=== PATIENT | female | born 1955 | race Caucasian/White ===

== ENCOUNTER → 2018-03-06 00:21 | Outpatient (CLI) | payer BC, SELFPAY ==
--- NOTE | 2018-03-06 08:46 | DI.REPORT_ITS ---
SYMPTOM/DIAGNOSIS: SCREENING, Z12.31 BILATERAL SCREENING MAMMOGRAMS: Mammograms were interpreted according to the usual protocol including computer analysis with CAD system, tomosynthesis and C view imaging. Comparison is made with exams from 2014 through 2017. The breasts are composed of scattered fibroglandular densities, breast density Category B. No suspicious masses or suspicious microcalcifications are seen. There has been no significant change. IMPRESSION: Category 1-B. Negative mammogram. Routine screening is recommended. [facility] ASSESSMENT OF FINDINGS: Negative. Category 1. Patient will receive a letter notifying them of these results. BI-RADS category B. There are scattered areas of fibroglandular density.
== END ==
PROVIDERS: PCP Nurse Practitioner Family; Visit Provider Nurse Practitioner Family
DX: Z12.31 Encounter for screening mammogram for malignant neoplasm of breast (principal)
CPT/HCPCS: 77063; 77067

== ENCOUNTER 2018-06-23 06:10 | Day surgery (SDC) | payer BC, SELFPAY ==
[2018-06-23] MEDS: Lactated Ringers 1,000 ML 30 ML IV ×2 (06:42→07:43)
[2018-06-23 06:56] VITALS: BP 131/66; PULSE 64; RESP 20; TEMP 36.7; O2SAT 98
[2018-06-23] MEDS: Ondansetron 4 MG/2 ML VIAL IVP (08:27)
[2018-06-23 08:37] VITALS: BP 143/86; PULSE 68; RESP 20; TEMP 36.7; O2SAT 98
--- NOTE | 2018-06-23 09:10 | W.COLOREPORT ---
Date of service: 06/23/18 Time of Service: 08:00 Colonoscopy Report Date of procedure: 06/23/18 Post-op diagnosis procedure note: other (1. Mild sigmoid diverticulosis 2. Grade 2 hemorrhoids) Procedure: Colonoscopy to the cecum Surgeon: Winston Hanks Anesthesia proc note operative: MAC (Matthew Chen CRNA; ASA 2 Mallampati Class II) Estimated blood loss (mL): 0 Pathology: none sent Complications: None Disposition: same day Indications: 62-year-old woman presenting for colorectal cancer screening by colonoscopy. She is been asymptomatic since her last colonoscopy which was unremarkable. She has no family history colorectal cancer. The procedure has been reviewed with her risks have been discussed. All her questions been answered to her satisfaction. Consents been obtained to proceed with colonoscopy. Prep: Miralax/Dulcolax (Prep quality excellent) Procedure Start Time: 07:56 Procedure End Time: 08:15 Retraction Time: 9 Findings: Examining the colon from cecum to anus, the patient was noted to have some mild sigmoid diverticulosis, and grade 2 hemorrhoids. No other abnormalities are noted Procedure Description: The patient was seen in the day surgery waiting area. Her identification was confirmed, and procedure checked. She was then brought to the procedure room. Monitoring for telemetry, blood pressure, oxygen saturation, and end tidal CO2 monitoring were applied. An appropriate time out was performed to confirm, identification, allergies, medication, procedure, was performed. Sedation was titrated for affect by the ALDEN; Once adequate sedation was achieved, I performed a inspection of the external perineum, and a digitial rectal examination. No significant external abnormalities were noted. On digital rectal examination, there was no blood, no masses, good rectal tone. I advanced the colonoscope from the anus to the cecum under direct visualization. The cecum was identified by the ileal-cecal valve, and the appendiceal orifice. The scope was then withdrawn in circumferential manner from the cecum to the rectum. Mild sigmoid diverticulosis was noted in the colon, but no other abnormalities were seen of the colon. The scope was then withdrawn into the rectum, and retroflexed. No further abnormalities of the rectum were noted but the anorectal junction the patient was noted to have grade 2 hemorrhoids The scope was then withdrawn, terminating the procedure. There were no complications during the procedure, and the patient tolerated the procedure well. She was returned to the day surgery recovery area in good condition. Plan: Will continue with routine screening for colorectal cancer according to current consensus guidelines, which is currently 10 years. Hemorrhoids should be amendable to topical therapy.
--- NOTE | 2018-06-23 09:17 | W.PM.DSUDISC ---
Discharge Plan Disposition Patient Disposition: HOME Condition: Good Discharge Details Reason For Visit: SCREENING Attending Provider: Winston Hanks Primary Care Provider: Tracie Murray Home Meds and New Rx's Prescriptions: Continue fluoxetine 10 mg capsule 10 mg PO DAILY RF: 0 trazodone 50 MG tablet 100 mg PO PRN PRNRF: 0 simvastatin 10 MG tablet 40 mg PO HS RF: 0 aspirin [Aspir-81] 81 MG tablet,delayed release (DR/EC) 81 mg PO DAILY RF: 0 omeprazole 10 MG capsule,delayed release(DR/EC) 20 mg PO HS RF: 0 multivitamin 1 EACH capsule 1 ea PO DAILY RF: 0 cholecalciferol (vit D3)(bulk) 1,000 GM liquid 100 gm Miscellaneous DAILY RF: 0 L.acidoph, paracasei,B. lactis 1 EACH capsule 1 ea PO DAILY RF: 0 docusate sodium [Colace] 100 MG capsule 100 mg PO DAILY PRNRF: 0 buspirone 5 MG tablet 15 mg PO BID RF: 0 venlafaxine [Effexor XR] 37.5 MG capsule,extended release 24hr 37.5 mg PO DAILY RF: 0 Psyllium [Metamucil] 1 EACH Pkt 1 ea PO DAILY PRNRF: 0 Discharge Instructions Instructions: Colonoscopy (DC) Activity:: Activity as Tolerated Diet:: As Tolerated Discharge Orders Discharge Orders: Discharge Order (Routine); Ordered 06/23/18 Ordered By: Winston Hanks DS: Diagnosis Discharge Diagnosis (1) Encounter for colorectal cancer screening: Start date: 06/23/18 Start time: 09:17 Status: Acute Asessment and Plan: Colonoscopy performed Colonoscopy Report Date of procedure: 06/23/18 Post-op diagnosis procedure note: other (1. Mild sigmoid diverticulosis 2. Grade 2 hemorrhoids) Procedure: Colonoscopy to the cecum Surgeon: Winston Hanks Anesthesia proc note operative: MAC (Matthew Chen CRNA; ASA 2 Mallampati Class II) Estimated blood loss (mL): 0 Pathology: none sent Complications: None Disposition: same day Indications: 62-year-old woman presenting for colorectal cancer screening by colonoscopy. She is been asymptomatic since her last colonoscopy which was unremarkable. She has no family history colorectal cancer. The procedure has been reviewed with her risks have been discussed. All her questions been answered to her satisfaction. Consents been obtained to proceed with colonoscopy. Prep: Miralax/Dulcolax (Prep quality excellent) Procedure Start Time: 07:56 Procedure End Time: 08:15 Retraction Time: 9 Findings: Examining the colon from cecum to anus, the patient was noted to have some mild sigmoid diverticulosis, and grade 2 hemorrhoids. No other abnormalities are noted Procedure Description: The patient was seen in the day surgery waiting area. Her identification was confirmed, and procedure checked. She was then brought to the procedure room. Monitoring for telemetry, blood pressure, oxygen saturation, and end tidal CO2 monitoring were applied. An appropriate time out was performed to confirm, identification, allergies, medication, procedure, was performed. Sedation was titrated for affect by the [employer]ENT[employer] SALES REPRESENTATIVE; Once adequate sedation was achieved, I performed a inspection of the external perineum, and a digitial rectal examination. No significant external abnormalities were noted. On digital rectal examination, there was no blood, no masses, good rectal tone. I advanced the colonoscope from the anus to the cecum under direct visualization. The cecum was identified by the ileal-cecal valve, and the appendiceal orifice. The scope was then withdrawn in circumferential manner from the cecum to the rectum. Mild sigmoid diverticulosis was noted in the colon, but no other abnormalities were seen of the colon. The scope was then withdrawn into the rectum, and retroflexed. No further abnormalities of the rectum were noted but the anorectal junction the patient was noted to have grade 2 hemorrhoids The scope was then withdrawn, terminating the procedure. There were no complications during the procedure, and the patient tolerated the procedure well. She was returned to the day surgery recovery area in good condition. Plan: Will continue with routine screening for colorectal cancer according to current consensus guidelines, which is currently 10 years. Hemorrhoids should be amendable to topical therapy.
[2018-06-23] MEDS: FAMOTIDINE 20 MG/50 ML BAG 200 MG IVPB (10:26)
[2018-06-23 10:28] VITALS: BP 139/84; PULSE 76; RESP 20; TEMP 36.7; O2SAT 100
[2018-06-23] MEDS: Haloperidol 5 MG/ML VIAL 1 MG IV (11:13)
[2018-06-23 11:22] VITALS: PULSE 64; O2SAT 100
--- NOTE | 2018-06-23 12:31 | NUR.NOTE ---
Nursing Note: EDUCATION PERTAINING TO REMOVAL OF SCOPALAMINE PATCH GIVEN TO PT PRIOR TO DISCHARGE.
== END 2018-06-23 12:22 | disposition home or self-care (01) ==
PROVIDERS: PCP Nurse Practitioner Family; Visit Provider Surgery
PROC: 0DJD8ZZ Inspection of Lower Intestinal Tract, Via Natural or Artificial Opening Endoscopic (ICD-10-PCS; CPT 45378; principal; 2018-06-23 07:30)
DX: Z12.11 Encounter for screening for malignant neoplasm of colon (principal); K57.30 Diverticulosis of large intestine without perforation or abscess without bleeding; K64.1 Second degree hemorrhoids
CPT/HCPCS: 45378; J1630; J2060; J2405

== ENCOUNTER 2018-07-10 13:26 | Outpatient (REF) | payer BC, SELFPAY ==
[2018-07-10 23:05] LABS: ALT 23 U/L (12-78); AST 18 U/L (15-37); Albumin 3.7 g/dL (3.4-5.0); Alkaline Phosphatase 95 U/L (46-116); Anion Gap 8.2 mmol/L (3-11); BUN 16 mg/dL (7-18); Bilirubin, Total 0.2 mg/dL (0.2-1.0); CO2 29.8 mmol/L (21.0-32.0); CREATININE 1.05 mg/dL (0.55-1.02); Calcium 9.3 mg/dL (8.5-10.1); Chloride 103 mmol/L (98-107); Glucose 90 mg/dL (70-100); Magnesium 1.7 mg/dL (1.8-2.4); Potassium 4.7 mmol/L (3.5-5.1); Sodium 141 mmol/L (136-145); Total Protein 7.1 g/dL (6.4-8.2); Vitamin B12 778 pg/mL (193-986)
== END 2018-07-10 13:46 ==
LOC: NCHCN 13:26
PROVIDERS: PCP Nurse Practitioner Family; Visit Provider Nurse Practitioner Family
DX: F41.8 Other specified anxiety disorders (principal); R25.1 Tremor, unspecified; M25.531 Pain in right wrist; M54.6 Pain in thoracic spine; K21.9 Gastro-esophageal reflux disease without esophagitis; R05 Cough; J30.9 Allergic rhinitis, unspecified
CPT/HCPCS: 80053; 82607; 83735

== ENCOUNTER 2018-10-09 07:52 | Emergency (ER) | payer BC, SELFPAY ==
[2018-10-09] VITALS (31 sets, daily range): BP systolic 119–162; BP diastolic 58–97; PULSE 71–96; RESP 11–26; TEMP 36.5–36.7; O2SAT 94–100
--- NOTE | 2018-10-09 07:57 | ED.GENADUL_ITS ---
Discharge Plan Disposition Patient Disposition: HOME Condition: Stable Discharge Details Chief Complaint: Nausea/Vomit/Diar Clinical Impression: Nausea vomiting and diarrhea, Hypokalemia Primary Care Provider: Tracie Murray ED Provider: Antionette Claudio Home Meds and New Rx's Prescriptions: New ondansetron 4 mg tablet,disintegrating 4 mg PO Q8H PRN (Reason: nausea and vomiting) Qty: 9 RF: 0 Continued fluoxetine 10 mg capsule 10 mg PO HS RF: 0 aspirin [Aspir-81] 81 MG tablet,delayed release (DR/EC) 81 mg PO DAILY RF: 0 multivitamin 1 EACH capsule 1 ea PO DAILY RF: 0 cholecalciferol (vit D3)(bulk) 1,000 GM liquid 100 gm Miscellaneous DAILY RF: 0 docusate sodium [Colace] 100 MG capsule 100 mg PO DAILY PRNRF: 0 No Action simvastatin 40 mg Tablet 40 mg PO HS RF: 0 omeprazole 20 mg Capsule,Delayed Release(Dr/Ec) 20 mg PO HS RF: 0 buspirone 15 mg Tablet 15 mg PO BID RF: 0 Discharge Instructions Instructions: Hypokalemia (ED), Acute Nausea and Vomiting (ED) Additional Instructions: Please return immediately to the emergency department if you develop any new or worsening symptoms or if you become otherwise concerned. It is extremely important that you make an appointment to be seen as soon as possible by your primary care doctor in follow-up this visit. Referrals: Tracie Murray [Primary Care Provider] - Discharge Data Discharge Date/Time-TO BE ENTERED AT DEPARTURE: 10/09/18 12:51 Medical Decision Making Leona James is a 63 y/o woman with h/o hiatal hernia and GERD presenting to the emergency department with nausea and vomiting since yesterday, also with mild diarrhea. On exam Pt is non-toxic appearing. Abd exam benign. Concern for gastroenteritis, gastritis, dehydration, metabolic derangement. Possible atypi jordon flu given close contacts with similar symptoms. Pt also reporting anxiety 2/2 persistent nausea. Exam/hx not c/w sepsis, acute intracranial process, ACS, appendicitis, surgical intra-abdominal process, other acute emergent life threatening process. Plan for screening labs, IVF hydration, IV zofran, ativan. Will monitor and reassess. Pt reports mild improvement in nausea with zofran, would like more anti-nausea medication. Will given reglan, continue IVF. Pt reporting symptoms much improved. Labs show hypokalemia. Pt tolerating PO including potassium without issue. Plan for rx zofran. I had a lengthy discussion with the Pt re: RTED precautions, home care, importance of outpt f/u. Pt verbalizes understanding of the plan and is amenable. All questions answered. Medical Records Medical records reviewed: Yes I reviewed the patient's medical records. HPI General Mode of arrival: ambulatory . Date/Time Provider Initiated Documentation: 10/09/18 07:56 . Limitations to Documentation: no limitations . Information obtained by: patient, family and RN notes reviewed . HPI Narrative: Leona James is a 63 y/o woman with h/o hiatal hernia and GERD presenting to the emergency department with nausea and vomiting. Pt reports that symptoms began last night. Has not been able to hold down food or fluids since yesterday. Has not had similar symptoms in the past. Pt reports some loose stools as well. Reports that her and daughter had similar symptoms over the past week, both of their symptoms now resolved. Pt denies pain, fever, SOB, cough, rash, focal weakness. Previously in her usual state of health. No recent travel. No unusual foods. Related Data Home Medications Medication Instructions Recorded Confirmed aspirin [Aspir-81] 81 mg PO DAILY tab-cap 06/05/13 10/15/18 cholecalciferol (vit D3)(bulk) 100 gm MISCELLANEOUS DAILY 02/23/16 10/15/18 multivitamin 1 ea PO DAILY 02/23/16 10/15/18 docusate sodium [Colace] 100 mg PO DAILY PRN 11/24/16 10/15/18 fluoxetine 10 mg capsule 10 mg PO HS 05/29/18 10/15/18 ondansetron 4 mg PO Q8H PRN #9 tab 10/09/18 10/15/18 buspirone 15 mg PO BID 10/15/18 10/15/18 omeprazole 20 mg PO HS 10/15/18 10/15/18 simvastatin 40 mg PO HS 10/15/18 10/15/18 Previous Rx's Medication Instructions Recorded ondansetron 4 mg PO Q8H PRN #9 tab 10/09/18 Allergies Allergy/AdvReac Type Severity Reaction Status Date / Time sertraline [From Zoloft] Allergy Intermediate shakes Verified 10/15/18 09:20 clonazepam AdvReac Intermediate Nausea Unverified 10/15/18 09:20 Review of Systems Review of Systems Constitutional: denies fevers Eyes: denies eye pain ENT: denies facial pain, dental pain, sore throat Cardiovascular: denies chest pain, edema Respiratory: denies SOB, cough GI: denies abdominal pain, constipation, reports vomiting, diarrhea : denies flank pain MSK: denies back pain, neck pain, arthralgias, myalgias Skin: denies rash Neuro: denies headaches, numbness, weakness PFSH Medical History H. pylori infection (Resolved) Abdominal pain Anxiety Arthralgia Chest heaviness Constipation Cough Depression Dyspnea GERD (gastroesophageal reflux disease) Hypercholesteremia Insomnia Menopause Overweight Thoracic spine pain Surgical History H/O colonoscopy (Resolved 06/23/18) Appendectomy (11/25/16) EGD - IV Sedation (02/23/16) Social History Smoking/Tobacco Use Status: Never Alcohol Intake: never Drug use: Daily Substance use type: marijuana Details: usually smokes marijuana every day, but hasn't been due to illness. although, she did try it to see if it would help with the nausea. Do you feel safe at home: Yes Do you feel safe in your relationship?: Yes History History Para 2 Hx # Term Pregnancies Multiple births Hx # Pregnancies Ectopic pregnancies AB induced Hx Number of Living Children AB spontaneous Exam Narrative Exam Narrative: Constitutional: nauseated but [id number], conversing normally HENT: head atraumatic/normocephalic/normal inspection, mucous membranes moist Eyes: conjunctiva normal, sclera normal, pupils 3mm b/l Neck: no stridor, normal ROM, trachea midline Chest: normal inspection Resp: normal work of breathing, LCTAB Cardio: normal rate, normal rhythm, no murmur appreciated GI: abdomen soft, non-tender, non-distended Back: normal inspection, no rash Skin: warm, dry, normal color, no rash Neuro: alert, not altered, grossly non-focal, normal tone Ext: no edema Psych: normal mood, normal affect, normal behavior
[2018-10-09] MEDS: Lactated Ringers 1,000 ML 1000 ML IV ×2 (08:25→09:04)
[2018-10-09] MEDS: Ondansetron 4 MG/2 ML VIAL IVP (08:28)
[2018-10-09 08:36] LABS: Abs Immature Grans 0.03 k/cumm (0.0-0.09); Absolute Basophil Count 0.01 k/cumm (0.0-0.2); Absolute Lymphocyte Count 0.35 k/cumm (1.2-3.4); Absolute Monocyte Count 0.61 k/cumm (0.11-0.7); Basophils % 0.1; HCT 40.1 % (36.0-46.0); HGB 14.3 g/dL (12.0-15.5); Immature Grans % 0.3; Lymphocytes % 2.9; Mean Corp. HGB Concentration 35.7 g/dL (32.0-36.0); Mean Corpuscular Hemoglobin 30.5 pg (27.0-33.0); Mean Corpuscular Volume 85.5 fL (80-95); Monocytes % 5.1; Neutrophils % 91.6; Platelet Count 211 x1000/uL (130-400); RBC 4.69 m/cumm (4.00-5.20); RBC Distribution Width 13.1 % (11.7-14.6)
[2018-10-09] MEDS: LORazepam 2 MG/ML VIAL 0.5 MG IVP (08:36)
[2018-10-09 08:39] LABS: Absolute Neutrophil Count 10.99 k/cumm (1.2-6.7)
[2018-10-09 08:50] LABS: ALT 23 U/L (12-78); AST 19 U/L (15-37); Albumin 3.9 g/dL (3.4-5.0); Alkaline Phosphatase 88 U/L (46-116); Anion Gap 14.6 mmol/L (3-11); BUN 23 mg/dL (7-18); Bilirubin, Total 0.5 mg/dL (0.2-1.0); CO2 21.4 mmol/L (21.0-32.0); CREATININE 1.11 mg/dL (0.55-1.02); Calcium 9.4 mg/dL (8.5-10.1); Chloride 99 mmol/L (98-107); Estimated GFR 49.64 (mL/min/1.73m2); Glucose 179 mg/dL (70-100); Lipase 101 U/L (73-393); Potassium 3.1 mmol/L (3.5-5.1); Sodium 135 mmol/L (136-145); Total Protein 7.7 g/dL (6.4-8.2)
[2018-10-09] MEDS: Metoclopramide 10 MG/2 ML VIAL IVP (10:15)
[2018-10-09] MEDS: Normal Saline Flush 10 ML SYR IVP (10:20)
[2018-10-09 11:24] LABS: Bilirubin Negative (Negative); Blood Negative (Negative); Clarity Clear; Glucose 100 mg/dL (Negative); Ketones 15 mg/dL (Negative); Leukocyte Esterase Negative (Negative); Nitrite Negative (Negative); Urobilinogen 0.2 EU/dL (Up TO 0.2); pH 7.5 (5-8)
[2018-10-09] MEDS: Potassium Chloride 20 MEQ TABCR 40 MEQ PO (12:07)
== END 2018-10-09 12:51 | disposition home or self-care (01) ==
PROVIDERS: Emergency Provider Student in an Organized Health Care Education/Training Program; PCP Nurse Practitioner Family
DX: R11.2 Nausea with vomiting, unspecified (principal); R19.7 Diarrhea, unspecified; E87.6 Hypokalemia
CPT/HCPCS: 36415; 80053; 83690; 87449; 96360; 96361; 96374; 96375; 99284; 81003; 85025; 99283; J2060; J2405; J2765

== ENCOUNTER 2018-10-11 10:29 | Emergency (ER) | payer BC, SELFPAY ==
[2018-10-11 10:34] VITALS: BP 179/66; PULSE 65; RESP 20; TEMP 36.7
[2018-10-11] MEDS: Ondansetron 4 MG/2 ML VIAL IVP (10:51)
[2018-10-11] MEDS: Normal Saline 1,000 ML 1000 ML IV ×3 (10:52→12:36)
[2018-10-11] MEDS: LORazepam 2 MG/ML VIAL 0.5 MG IVP (10:52)
[2018-10-11 11:02] LABS: Abs Immature Grans 0.03 k/cumm (0.0-0.09); Absolute Basophil Count 0.01 k/cumm (0.0-0.2); Absolute Eosinophil Count 0.02 k/cumm (0.0-0.7); Absolute Lymphocyte Count 1.12 k/cumm (1.2-3.4); Absolute Monocyte Count 0.77 k/cumm (0.11-0.7); Absolute Neutrophil Count 6.54 k/cumm (1.2-6.7); Basophils % 0.1; Eosinophils % 0.2; HCT 38.8 % (36.0-46.0); HGB 13.4 g/dL (12.0-15.5); Immature Grans % 0.4; Lymphocytes % 13.2; Mean Corp. HGB Concentration 34.5 g/dL (32.0-36.0); Mean Corpuscular Hemoglobin 30.1 pg (27.0-33.0); Mean Corpuscular Volume 87.2 fL (80-95); Monocytes % 9.1; Platelet Count 187 x1000/uL (130-400); RBC 4.45 m/cumm (4.00-5.20); RBC Distribution Width 13.2 % (11.7-14.6); White Blood Cell Count 8.49 k/cumm (4.4-10.8)
--- NOTE | 2018-10-11 11:02 | ED.GENADUL_ITS ---
Discharge Plan Disposition Patient Disposition: HOME Condition: Good Discharge Details Chief Complaint: Nausea/Vomit/Diar Clinical Impression: Moderate nausea and vomiting Primary Care Provider: Tracie Murray ED Provider: Harris Morales Home Meds and New Rx's Prescriptions: No Action fluoxetine 10 mg capsule 10 mg PO DAILY RF: 0 trazodone 50 MG tablet 100 mg PO PRN PRNRF: 0 simvastatin 10 MG tablet 40 mg PO HS RF: 0 aspirin [Aspir-81] 81 MG tablet,delayed release (DR/EC) 81 mg PO DAILY RF: 0 omeprazole 10 MG capsule,delayed release(DR/EC) 20 mg PO HS RF: 0 cetirizine [Zyrtec] 10 mg tablet 10 mg PO DAILY RF: 0 multivitamin 1 EACH capsule 1 ea PO DAILY RF: 0 cholecalciferol (vit D3)(bulk) 1,000 GM liquid 100 gm Miscellaneous DAILY RF: 0 L.acidoph, paracasei,B. lactis 1 EACH capsule 1 ea PO DAILY RF: 0 ondansetron 4 mg tablet,disintegrating 4 mg PO Q8H PRN (Reason: nausea and vomiting) Qty: 9 RF: 0 docusate sodium [Colace] 100 MG capsule 100 mg PO DAILY PRNRF: 0 buspirone 5 MG tablet 15 mg PO BID RF: 0 Psyllium [Metamucil] 1 EACH Pkt 1 ea PO DAILY PRNRF: 0 Discharge Instructions Instructions: Acute Nausea and Vomiting (ED) Additional Instructions: Please take the Reglan only as needed for nausea or vomiting. Please continue to drink small amounts of water as often as possible at home. As we discussed, if you have return of your symptoms, if you are unable to eat or drink anything without vomiting, or if you develop any type of abdominal pain please return immediately for reassessment. If you notice any worsening of your symptoms, or any new symptoms such as vomiting, diarrhea, fever, chills, shortness of breath, chest pain, numbness, weakness, or fainting , please return immediately to the emergency department for reevaluation. Please follow up with your primary care provider as soon as possible for reassessment and reevaluation. As always, it was a pleasure participating in your medical care today. Referrals: Tracie Murray [Primary Care Provider] - Medical Decision Making This is a 63-year-old female who presents today for nausea and vomiting for the last 3 days, she was seen and assessed here 3 days ago, had a benign laboratory workup at that time, which discharged home after she is feeling better. She does smoke marijuana of note, and her symptoms are improved with hot showers. Patient states that she was feeling slightly better yesterday, notably after the hot shower, however her nausea and vomiting have continued today. She denies any abdominal pain whatsoever, and there is no signs of guarding or rebound on exam. No signs of an acute abdomen. Bowel sounds are present she is having bowel movements and so I feel that notable obstruction is unlikely. We will rehydrate, give her GI cocktail she has not been on any of her reflux medications for the last 3 days because of the vomiting, treat with topical Spacing for potential cyclic vomiting syndrome, perform a plain film x-ray as I do not think a CT scan is indicated at this time clinically there is no signs of acute abdominal pain. Differential is highest for cyclic vomiting syndrome, however also includes less likely obstruction versus viral enteritis. 2:19 PM Patient's laboratory workup has returned, no significant electrolyte abnormalities, ALT AST and lipase are normal. Patient was given 2 L of normal saline initially and was feeling much better, she was eventually given 3 L total. Initial x-ray did show an atypical component on the left side of the abdomen which was felt to be otherwise unremarkable, no signs of obstruction. Because of the patient's persistent symptoms CT scan was ordered, which shows no evidence of acute process per radiology and Dr. Roberts. The patient was eventually given a dose of Reglan in addition to the Zofran, she had notable improvement of her nausea with this, as well as the topical capscacin over her abdomen. Patient has been able to tolerate p.o. well here, she has been able to drink the GI cocktail, as well as 2 cups of water. Had a long discussion with her regarding potential admission versus discharge, and she has been able to tolerate p.o., she has benign CT scan laboratory workup, and no other significant abnormalities, with no pain whatsoever on abdominal exam, no reproducible abdominal tenderness. At this time the patient would like to go home, I discussed the importance of prompt return if she has worsening or return of her symptoms, including inability to tolerate p.o. and the patient understands this. Of note the patient is now brought up that her has had similar symptoms, and recently had resolution of the symptoms yesterday. Feel that her symptoms are most likely secondary to viral gastroenteritis versus cyclic vomiting syndrome, and is currently clinically inconsistent with an acute abdominal surgical pathology. Her symptoms are inconsistent with ACS, patient will be discharged home. She will be given 3 Reglan to go home with. I have extensively reviewed the treatment plan and discharge instructions with the patient. I have addressed all patient concerns at this time. The patient was made aware of what symptoms to monitor for that would warrant a return to the emergency department. Discussed the plan with the patient, they demonstrate verbal understanding and agreement with our assessment and plan at this time. HPI General Date/Time Provider Initiated Documentation: 10/11/18 10:36 . HPI Narrative: This is a 63-year-old female with a past medical history of depression, anxiety, high cholesterol, GERD, past surgical history of appendectomy, who presents today for evaluation nausea and vomiting in the absence of any abdominal pain. The patient was seen and assessed here 3 days ago for similar symptoms. At that time laboratory workup was benign, she had no abdominal pain whatsoever. Laboratory workup was relatively benign, potassium was slightly low and she was replenished for this, she was given a small dose of Ativan and antiemetics, and she had near complete resolution of her symptoms and was discharged home. Patient states that since then she has not had resolution of her symptoms, she has had continued nausea and vomiting. She states that she has had no food to eat today, however she states that she vomits roughly 5 minutes every time after she tries to eat or drink anything. She has not been able to keep anything down because of this. She denies any diarrhea, but does admit to to firm stools today. The patient denies any hematemesis, hematochezia, melena, acholic stool, or other symptomatology. She denies any abdominal pain whatsoever at this time. She denies any dysuria or hematuria. She denies any chest pain or shortness of breath. She denies any previous cardiac history. She does admit to regular marijuana use, but states that she has not had symptoms like this before with her marijuana use. Patient also states that she has notable improvement of her symptoms when she did take a hot shower yesterday. She has no other complaints or modifying factors at this time. Related Data Home Medications Medication Instructions Recorded Confirmed aspirin [Aspir-81] 81 mg PO DAILY tab-cap 06/05/13 10/11/18 omeprazole 20 mg PO HS tab-cap 06/05/13 10/11/18 simvastatin 40 mg PO HS tab-cap 06/05/13 10/11/18 trazodone 100 mg PO PRN PRN tab-cap 06/05/13 10/11/18 L.acidoph, paracasei,B. lactis 1 ea PO DAILY 02/23/16 10/11/18 cholecalciferol (vit D3)(bulk) 100 gm MISCELLANEOUS DAILY 02/23/16 10/11/18 multivitamin 1 ea PO DAILY 02/23/16 10/11/18 docusate sodium [Colace] 100 mg PO DAILY PRN 11/24/16 10/11/18 Psyllium [Metamucil] 1 ea PO DAILY PRN 08/01/17 10/11/18 buspirone 15 mg PO BID 08/01/17 10/11/18 fluoxetine 10 mg capsule 10 mg PO DAILY 05/29/18 10/11/18 cetirizine 10 mg tablet 10 mg PO DAILY 07/13/18 10/11/18 ondansetron 4 mg PO Q8H PRN #9 tab 10/09/18 10/11/18 Previous Rx's Medication Instructions Recorded ondansetron 4 mg PO Q8H PRN #9 tab 10/09/18 Allergies Allergy/AdvReac Type Severity Reaction Status Date / Time sertraline [From Zoloft] Allergy Intermediate shakes Verified 10/09/18 08:00 clonazepam AdvReac Intermediate Nausea Unverified 10/09/18 08:00 General Stated Complaint: Nausea/Vomit/Diar ANNE MARIE: 3 Review of Systems Review of Systems All systems reviewed & are unremarkable except as noted in HPI and below PFSH Surgical History H/O colonoscopy (Resolved 06/23/18) Appendectomy (11/25/16) EGD - IV Sedation (02/23/16) Family History Brother No problems noted. Other Esophageal cancer Social History Smoking/Tobacco Use Status: Never Alcohol Intake: never Drug use: Daily Substance use type: marijuana Do you feel safe at home: Yes Do you feel safe in your relationship?: Yes History History Para 2 Hx # Term Pregnancies Multiple births Hx # Pregnancies Ectopic pregnancies AB induced Hx Number of Living Children AB spontaneous Exam Narrative Exam Narrative: 1.Const: Well-nourished, Well-developed, appearing stated age 2.Eyes: PERRL, no conjunctival injection, and symmetrical lids. 3.ENT: Atraumatic external nose and ears. Notably dry MM. Neck: Symmetric, trachea midline, No thyromegaly. 4.CVS: +S1/S2, No murmurs or gallops. Peripheral pulses 2+ and equal in all extremities. Brisk capillary refill in all extremities. 5.RESP: Unlabored respiratory effort. Clear to auscultation bilaterally. No wheezes rales or rhonchi 6.GI: Soft, Nontender/Nondistended, No hepatosplenomegaly. No guarding or rebound. Bowel sounds are present 7.MSK: Normocephalic/Atraumatic, Extremities w/o deformity or ttp No cyanosis or clubbing, Normal movement of all extremities 8.Skin: Warm, Dry. No rashes or lesions. 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 Sensation grossly intact, no focal neurologic deficits. 10.Psych: (AAO) x3. Appropriate mood and affect Course Vital Signs Temperature 36.7 C 10/11/18 10:34 Pulse 65 10/11/18 10:34 Respiratory Rate 20 10/11/18 10:34 Blood Pressure 179/66 H 10/11/18 10:34 Temperature 36.7 C 10/11/18 10:34 Temperature Source Temporal Artery Scan 10/11/18 10:34 Pulse 65 10/11/18 10:34 Respiratory Rate 20 10/11/18 10:34 Blood Pressure 179/66 H 10/11/18 10:34 Blood Pressure Position Sitting 10/11/18 10:34 Oxygen Delivery Method Room Air 10/11/18 10:34 Oxygen Flow Rate 0 10/11/18 10:34 Pain Level 0 10/11/18 10:34
[2018-10-11] MEDS: Pantoprazole 40 MG VIAL IVP (11:17)
[2018-10-11 11:25] LABS: ALT 28 U/L (12-78); AST 23 U/L (15-37); Albumin 3.6 g/dL (3.4-5.0); Alkaline Phosphatase 77 U/L (46-116); Anion Gap 9.7 mmol/L (3-11); BUN 19 mg/dL (7-18); Bilirubin, Total 0.3 mg/dL (0.2-1.0); CO2 27.3 mmol/L (21.0-32.0); CREATININE 1.02 mg/dL (0.55-1.02); Calcium 9.1 mg/dL (8.5-10.1); Chloride 104 mmol/L (98-107); Estimated GFR 54.73 (mL/min/1.73m2); Glucose 170 mg/dL (70-100); Lipase 198 U/L (73-393); Potassium 3.4 mmol/L (3.5-5.1); Sodium 141 mmol/L (136-145); Total Protein 7.1 g/dL (6.4-8.2)
--- NOTE | 2018-10-11 11:38 | DI.RAD_ITS ---
SYMPTOMS/DIAGNOSIS: NAUSEA, VOMITING, EVAL AIR FLUID LEVELS FLAT AND UPRIGHT ABDOMEN: The visualized lung bases are clear. The bowel gas pattern shows no evidence of obstruction. There is a linear tubular structure of air in the left abdomen likely reflecting the descending colon. No organomegaly or pneumoperitoneum is appreciated. Degenerative changes are seen in the spine and hips bilaterally. IMPRESSION: No definite evidence of an acute abdomen. The findings were discussed with Dr Morales of the emergency department on the date of the examination.
--- NOTE | 2018-10-11 12:30 | DI.CT_ITS ---
SYMPTOMS/DIAGNOSIS: VOMITING, UNABLE TO TOLERATE PO CT SCAN OF THE ABDOMEN AND PELVIS: CT scan of the abdomen and pelvis was performed following the uneventful administration of intravenous contrast material. Comparisons are 11/29/16 and 11/24/16. No acute findings are seen in the lung bases. The liver is normal in size. 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 It is unchanged compared to the prior examination. No suspicious hepatic masses are seen. The portal, superior mesenteric and splenic veins are patent. The gallbladder is negative. No biliary ductal dilatation is seen. The pancreas, spleen and adrenal glands are grossly unremarkable. The kidneys show no evidence of obstruction or solid renal mass. The urinary bladder is intact. The reproductive organs are unremarkable. There is atherosclerosis of the abdominal aorta but no aneurysmal dilatation is present. No significant abdominal or pelvic adenopathy, ascites or pneumoperitoneum is present. The bowel shows no evidence of obstruction. No acute inflammatory or infectious process is appreciated at this time. No pericolonic inflammatory changes are appreciated. Degenerative changes are seen in the spine. IMPRESSION: No evidence of an acute abdomen. The findings were discussed with the Emergency Department on the date of the examination.
[2018-10-11] MEDS: Omnipaque 350 MG/ML 100 ML BTL IJ (13:02)
[2018-10-11] MEDS: Metoclopramide 10 MG/2 ML VIAL IVP (13:33)
[2018-10-11 13:36] VITALS: BP 162/81; PULSE 75; RESP 16; TEMP 36.9; O2SAT 94
[2018-10-11] MEDS: Metoclopramide 10 MG TAB 30 MG PO (14:27)
== END 2018-10-11 14:25 | disposition home or self-care (01) ==
PROVIDERS: Emergency Provider Student in an Organized Health Care Education/Training Program; PCP Nurse Practitioner Family
DX: R11.2 Nausea with vomiting, unspecified (principal); K21.9 Gastro-esophageal reflux disease without esophagitis; F12.99 Cannabis use, unspecified with unspecified cannabis-induced disorder
CPT/HCPCS: 36415; 80053; 83690; 96361; 96374; 96375; 99285; 74019; 74177; 85025; J2060; J3490

== ENCOUNTER 2018-10-15 09:11 | Inpatient (IN) | payer BC, SELFPAY ==
[2018-10-15] VITALS (45 sets, daily range): BP systolic 111–184; BP diastolic 62–98; PULSE 66–106; RESP 13–37; TEMP 36.5–37.3; O2SAT 91–98
[2018-10-15] MEDS: Normal Saline 1,000 ML 1000 ML IV ×2 (09:42→10:51)
--- NOTE | 2018-10-15 09:52 | ED.GENADUL_ITS ---
Discharge Plan Disposition Patient Disposition: [facility] INPATIENT Condition: Stable Discharge Details Chief Complaint: Nausea/Vomit/Diar Clinical Impression: Intractable nausea and vomiting, Elevated troponin, Hypokalemia, Diarrhea Primary Care Provider: Tracie Murray ED Provider: Gwen Coleman Home Meds and New Rx's Prescriptions: No Action fluoxetine 10 mg capsule 10 mg PO DAILY RF: 0 trazodone 50 MG tablet 100 mg PO PRN PRNRF: 0 simvastatin 10 MG tablet 40 mg PO HS RF: 0 aspirin [Aspir-81] 81 MG tablet,delayed release (DR/EC) 81 mg PO DAILY RF: 0 omeprazole 10 MG capsule,delayed release(DR/EC) 20 mg PO HS RF: 0 cetirizine [Zyrtec] 10 mg tablet 10 mg PO DAILY RF: 0 multivitamin 1 EACH capsule 1 ea PO DAILY RF: 0 cholecalciferol (vit D3)(bulk) 1,000 GM liquid 100 gm Miscellaneous DAILY RF: 0 L.acidoph, paracasei,B. lactis 1 EACH capsule 1 ea PO DAILY RF: 0 ondansetron 4 mg tablet,disintegrating 4 mg PO Q8H PRN (Reason: nausea and vomiting) Qty: 9 RF: 0 docusate sodium [Colace] 100 MG capsule 100 mg PO DAILY PRNRF: 0 buspirone 5 MG tablet 15 mg PO BID RF: 0 Psyllium [Metamucil] 1 EACH Pkt 1 ea PO DAILY PRNRF: 0 Medical Decision Making 63-year-old female with history of GERD, anxiety and depression, and daily marijuana smoker who presents with nausea, vomiting and diarrhea for the past week. Last episode of vomiting and diarrhea 5 days ago, now mainly complaining of nausea and weakness. Seen here twice last week for the same complaint and had negative labs, abdominal x-ray and abdominal CT. She was sent home with Reglan without relief. Heart rate and blood pressure mildly elevated on arrival, remainder vitals within normal limits. Afebrile. Patient appears mildly anxious and shaky due to her nausea but otherwise nontoxic. Abdomen soft and nontender. Will place an IV, bolus IV fluids, labs and give a dose of Phenergan, Pepcid and GI cocktail and will reassess. 1035 --labs reviewed and note a white blood cell count of 12. Potassium 2.7, troponin 0.09. Suspect this is demand due to dehydration. EKG no significant change from previous. There is T wave inversion in lead III and V2, previous EKG noted T wave inversion in V2. There are no acute ST findings. Will replete potassium, continue IV fluids and recheck a troponin and potassium. 1130 --pt denies any relief of nausea. Will give a dose of compazine and reassess. 1235 --repeat labs note an improvement in potassium to now 4. Repeat troponin now up trending to 0.11. Repeat EKG no acute change. Patient denies any chest pain or shortness of breath but still complaining of some nausea. Will admit for intractable nausea and for serial troponins. 1245 --d/w hospitalist --Dr. Mccloud noted respiratory rate of 26 on recent vitals. Discussed that this must have been a transient finding as patient has not been tachypneic and denies any chest pain or shortness of breath. Dr. Mccloud is requesting a CT chest to rule out PE with elevated troponin and this episode of tachypnea. 1420 --CT chest negative for PE. D/w hospitalist -- accepts pt for admission. Medical Records Medical records reviewed: Yes I reviewed the patient's medical records. Imaging Data Radiologic Study: Radiologist's impression: CT Angiography Chest With Contrast EXAM DATE/TIME: 10/15/2018 1:01 PM FINDINGS: Pulmonary arteries: No pulmonary embolus or aortic dissection. Aorta: Normal. No aortic aneurysm. No aortic dissection. Lungs: Left discoid atelectasis and/or scarring. Pleural space: Normal. No pneumothorax. No pleural effusion. Heart: Normal. No cardiomegaly. No pericardial effusion. Lymph nodes: Unremarkable. No enlarged lymph nodes. Bones/joints: Unremarkable. No acute fracture. Soft tissues: Unremarkable. IMPRESSION: No pulmonary embolus or aortic dissection. Lab Data Lab results reviewed: Yes I reviewed the patient's lab results. Laboratory Tests Range/Units 10/15/18 10/15/18 10/15/18 09:32 09:32 12:20 WBC (4.4-10.8) k/cumm 12.33 H RBC (4.00-5.20) m/cumm 5.14 Hgb (12.0-15.5) g/dL 15.3 Hct (36.0-46.0) % 42.2 MCV (80-95) fL 82.1 MCH (27.0-33.0) pg 29.8 MCHC (32.0-36.0) g/dL 36.3 H RDW (11.7-14.6) % 13.3 Plt Count (130-400) x1000/uL 331 D MPV (8.0-11.0) fL 9.6 Immature Gran % 0.8 Neutrophils % 67.8 Lymphocytes % 17.1 Monocytes % 14.1 Eosinophils % 0.1 Basophils % 0.1 Absolute Neutrophils (1.2-6.7) k/cumm 8.36 H Absolute Lymphocytes (1.2-3.4) k/cumm 2.11 Absolute Monocytes (0.11-0.7) k/cumm 1.74 H Absolute Eosinophils (0.0-0.7) k/cumm 0.01 Absolute Basophils (0.0-0.2) k/cumm 0.01 Differential Comment Agrees w/ instrument RBC Morphology Normal Sodium (136-145) mmol/L 136 138 Potassium (3.5-5.1) mmol/L 4.0 D Chloride (98-107) mmol/L 95 L 101 Carbon Dioxide (21.0-32.0) mmol/L 25.5 25.5 Anion Gap (3-11) mmol/L 15.5 H 11.5 H BUN (7-18) mg/dL 17 14 Creatinine (0.55-1.02) mg/dL 1.14 H 0.88 Estimated GFR/1.73 m2 (mL/min/1.73m2) 48.14 >= 60.00 Glucose (70-100) mg/dL 163 H 110 H D Calcium (8.5-10.1) mg/dL 9.7 8.6 Magnesium (1.8-2.4) mg/dL 1.8 Total Bilirubin (0.2-1.0) mg/dL 0.5 AST (15-37) U/L 15 ALT (12-78) U/L 27 Alkaline Phosphatase (46-116) U/L 88 Troponin I (0.00-0.06) ng/mL 0.09 H* Total Protein (6.4-8.2) g/dL 7.6 Albumin (3.4-5.0) g/dL 3.8 Lipase (73-393) U/L 304 Range/Units 10/15/18 12:20 WBC (4.4-10.8) k/cumm RBC (4.00-5.20) m/cumm Hgb (12.0-15.5) g/dL Hct (36.0-46.0) % MCV (80-95) fL MCH (27.0-33.0) pg MCHC (32.0-36.0) g/dL RDW (11.7-14.6) % Plt Count (130-400) x1000/uL MPV (8.0-11.0) fL Immature Gran % Neutrophils % Lymphocytes % Monocytes % Eosinophils % Basophils % Absolute Neutrophils (1.2-6.7) k/cumm Absolute Lymphocytes (1.2-3.4) k/cumm Absolute Monocytes (0.11-0.7) k/cumm Absolute Eosinophils (0.0-0.7) k/cumm Absolute Basophils (0.0-0.2) k/cumm Differential Comment RBC Morphology Sodium (136-145) mmol/L Potassium (3.5-5.1) mmol/L Chloride (98-107) mmol/L Carbon Dioxide (21.0-32.0) mmol/L Anion Gap (3-11) mmol/L BUN (7-18) mg/dL Creatinine (0.55-1.02) mg/dL Estimated GFR/1.73 m2 (mL/min/1.73m2) Glucose (70-100) mg/dL Calcium (8.5-10.1) mg/dL Magnesium (1.8-2.4) mg/dL Total Bilirubin (0.2-1.0) mg/dL AST (15-37) U/L ALT (12-78) U/L Alkaline Phosphatase (46-116) U/L Troponin I (0.00-0.06) ng/mL 0.11 H* Total Protein (6.4-8.2) g/dL Albumin (3.4-5.0) g/dL Lipase (73-393) U/L ECG Data Attestation: I personally reviewed and interpreted this ECG (s) as follows: Interpretation: 1040 -- Rate of 75, sinus, no acute ST elevation or depression. T wave inversion in lead III and V2. T wave inversion in V2 seen in previous EKG. QTc 469. QRS 94. 1304 --rate of 86, sinus, no acute ST elevation or depression. T wave inversion in V2 seen in previous. QTc 469. QRS 89. HPI General Mode of arrival: ambulatory . Date/Time Provider Initiated Documentation: 10/15/18 09:11 . Limitations to Documentation: no limitations . Information obtained by: patient . HPI Narrative: Patient is a 63-year-old female with history of GERD, anxiety, depression who presents with nausea, vomiting and diarrhea for the past week. Patient is a daily marijuana smoker. She states she last attempted to smoke marijuana last night and states this made her more nauseous. She was seen here twice last week for the same complaint and had negative workup including labs, abdominal x-ray and abdominal CT. Patient was sent home with tabs of Reglan which she states she finished without relief. She states she has not eaten much for the past 4 days. She states she attempted to drink tea and toast this morning but became nauseous and dry heaves. She states she last had vomiting and diarrhea 5 days ago. She denies any fever, abdominal pain, chest pain, shortness of breath or urinary symptoms. Related Data Home Medications Medication Instructions Recorded Confirmed aspirin [Aspir-81] 81 mg PO DAILY tab-cap 06/05/13 10/15/18 omeprazole 20 mg PO HS tab-cap 06/05/13 10/15/18 simvastatin 40 mg PO HS tab-cap 06/05/13 10/15/18 trazodone 100 mg PO PRN PRN tab-cap 06/05/13 10/15/18 L.acidoph, paracasei,B. lactis 1 ea PO DAILY 02/23/16 10/15/18 cholecalciferol (vit D3)(bulk) 100 gm MISCELLANEOUS DAILY 02/23/16 10/15/18 multivitamin 1 ea PO DAILY 02/23/16 10/15/18 docusate sodium [Colace] 100 mg PO DAILY PRN 11/24/16 10/15/18 Psyllium [Metamucil] 1 ea PO DAILY PRN 08/01/17 10/15/18 buspirone 15 mg PO BID 08/01/17 10/15/18 fluoxetine 10 mg capsule 10 mg PO DAILY 05/29/18 10/15/18 cetirizine 10 mg tablet 10 mg PO DAILY 07/13/18 10/15/18 ondansetron 4 mg PO Q8H PRN #9 tab 10/09/18 10/15/18 Previous Rx's Medication Instructions Recorded ondansetron 4 mg PO Q8H PRN #9 tab 10/09/18 Allergies Allergy/AdvReac Type Severity Reaction Status Date / Time sertraline [From Zoloft] Allergy Intermediate shakes Verified 10/15/18 09:20 clonazepam AdvReac Intermediate Nausea Unverified 10/15/18 09:20 General Stated Complaint: Nausea/Vomit/Diar ANNE MARIE: 3 Review of Systems Review of Systems All systems reviewed & are unremarkable except as noted in HPI and below Constitutional Reports as per HPI, Denies chills, Denies fever(s) and Reports weakness Eyes Denies blurry vision ENT Denies dizziness, Denies sore throat and Denies throat swelling Cardiovascular Denies chest pain and Denies dyspnea Respiratory Denies cough and Denies dyspnea Gastrointestinal Denies abdominal pain, Reports diarrhea and Reports vomiting Genitourinary Denies hematuria and Denies dysuria Musculoskeletal Denies back pain and Denies numbness Integumentary/Breasts Denies lesions and Denies rash Neurologic Denies dizziness, Denies focal weakness, Denies numbness and Reports weakness Allergic/Immunologic Denies throat swelling PFSH Medical History Abdominal pain Anxiety Arthralgia Chest heaviness Constipation Cough Depression Dyspnea GERD (gastroesophageal reflux disease) Hypercholesteremia Insomnia Menopause Overweight Thoracic spine pain Surgical History H/O colonoscopy (Resolved 06/23/18) Appendectomy (11/25/16) EGD - IV Sedation (02/23/16) Family History Brother No problems noted. Other Esophageal cancer Social History Smoking/Tobacco Use Status: Never Alcohol Intake: never Drug use: Daily Substance use type: marijuana Details: usually smokes marijuana every day, but hasn't been due to illness. although, she did try it to see if it would help with the nausea. Do you feel safe at home: Yes Do you feel safe in your relationship?: Yes History History Para 2 Hx # Term Pregnancies Multiple births Hx # Pregnancies Ectopic pregnancies AB induced Hx Number of Living Children AB spontaneous Exam Const General: cooperative and anxious Nutritional Appearance: average body habitus Orientation: alert, awake and oriented x3 HENMT Head: normal to inspection Ears: hearing grossly normal bilaterally and external ears normal General nose exam: external nose normal Face and sinus: normal facial exam Eyes General: appearance normal, both eyes and all related structures Eyelids: eyelids normal EOM: EOM intact bilaterally Neck Neck: normal visual inspection Lymphatic: no lymphadenopathy noted Chest Chest: normal inspection of the chest Resp Effort & Inspection: normal respiratory effort and able to speak in complete sentences Auscultation: clear to auscultation bilaterally Cardio Rate: regular rate Rhythm: regular rhythm GI Inspection: normal to inspection Palpation: soft, not firm, no guarding, no hepatosplenomegaly, no masses and nontender Auscultation: normal bowel sounds Skin General skin exam: no rashes or lesions noted Neuro General: alert and awake Cognition: normal cognition Speech: speech normal Gait: normal gait Motor: muscle tone normal throughout Sensory Exam: no sensory deficits noted Extrem General: normal to inspection, full ROM and no edema Psych Appearance: grossly normal Mental Status: mental status grossly normal Speech and Movement: speech and movement normal Affect: normal affect Thought Process: normal Course Vital Signs Temperature 98.6 F 10/15/18 09:13 Pulse 106 H 10/15/18 09:13 Respiratory Rate 16 10/15/18 09:13 Blood Pressure 165/92 H 10/15/18 09:13 Pulse Oximetry 96 10/15/18 09:13 Temperature 98.6 F 10/15/18 09:13 Temperature Source Temporal Artery Scan 10/15/18 09:13 Pulse 106 H 10/15/18 09:13 Respiratory Rate 16 10/15/18 09:13 Respiratory Effort Non-Labored 10/15/18 09:16 Blood Pressure 165/92 H 10/15/18 09:13 Blood Pressure Position Sitting 10/15/18 09:13 Pulse Oximetry 96 10/15/18 09:13 Oxygen Delivery Method Room Air 10/15/18 09:13 Oxygen Flow Rate 0 10/15/18 09:13 Pain Level 0 10/15/18 09:13
[2018-10-15] MEDS: FAMOTIDINE 20 MG/50 ML BAG 200 MG IVPB (09:58)
[2018-10-15 10:05] LABS: Absolute Basophil Count 0.01 k/cumm (0.0-0.2); Absolute Eosinophil Count 0.01 k/cumm (0.0-0.7); Absolute Lymphocyte Count 2.11 k/cumm (1.2-3.4); Absolute Monocyte Count 1.74 k/cumm (0.11-0.7); Absolute Neutrophil Count 8.36 k/cumm (1.2-6.7); Basophils % 0.1; Eosinophils % 0.1; HCT 42.2 % (36.0-46.0); HGB 15.3 g/dL (12.0-15.5); Immature Grans % 0.8; Lymphocytes % 17.1; Mean Corp. HGB Concentration 36.3 g/dL (32.0-36.0); Mean Corpuscular Hemoglobin 29.8 pg (27.0-33.0); Mean Corpuscular Volume 82.1 fL (80-95); Mean Platelet Volume 9.6 fL (8.0-11.0); Monocytes % 14.1; Neutrophils % 67.8; Platelet Count 331 x1000/uL (130-400); RBC 5.14 m/cumm (4.00-5.20); RBC Distribution Width 13.3 % (11.7-14.6); White Blood Cell Count 12.33 k/cumm (4.4-10.8)
[2018-10-15 10:23] LABS: ALT 27 U/L (12-78); AST 15 U/L (15-37); Albumin 3.8 g/dL (3.4-5.0); Alkaline Phosphatase 88 U/L (46-116); Anion Gap 15.5 mmol/L (3-11); BUN 17 mg/dL (7-18); Bilirubin, Total 0.5 mg/dL (0.2-1.0); CO2 25.5 mmol/L (21.0-32.0); CREATININE 1.14 mg/dL (0.55-1.02); Calcium 9.7 mg/dL (8.5-10.1); Chloride 95 mmol/L (98-107); Estimated GFR 48.14 (mL/min/1.73m2); Glucose 163 mg/dL (70-100); Lipase 304 U/L (73-393); Magnesium 1.8 mg/dL (1.8-2.4); Sodium 136 mmol/L (136-145); Total Protein 7.6 g/dL (6.4-8.2)
[2018-10-15 10:26] LABS: Diff Comment Agrees w/ Instrument
[2018-10-15 10:27] LABS: RBC Morphology Normal
[2018-10-15 10:31] LABS: Troponin I 0.09 ng/mL (0.00-0.06)
[2018-10-15] MEDS: Potassium Chloride 20 MEQ TABCR 40 MEQ PO (10:51)
[2018-10-15] MEDS: POTASSIUM CHLORIDE 20 MEQ/100 ML BAG 50 MEQ IVPB (10:52)
[2018-10-15] MEDS: Prochlorperazine 10 MG/2 ML VIAL IVP (11:42)
[2018-10-15 12:33] LABS: Anion Gap 11.5 mmol/L (3-11); BUN 14 mg/dL (7-18); CO2 25.5 mmol/L (21.0-32.0); CREATININE 0.88 mg/dL (0.55-1.02); Calcium 8.6 mg/dL (8.5-10.1); Chloride 101 mmol/L (98-107); Glucose 110 mg/dL (70-100); Sodium 138 mmol/L (136-145)
[2018-10-15 12:51] LABS: Troponin I 0.11 ng/mL (0.00-0.06)
[2018-10-15 12:56] LABS: Potassium 2.7 mmol/L (3.5-5.1)
--- NOTE | 2018-10-15 12:59 | DI.CT_ITS ---
SYMPTOMS/DIAGNOSIS: ELEVATED TROPONIN, NAUSEA, ? PE CHEST CT FOR PULMONARY EMBOLISM: CT angiography was performed with multi slice acquisition and multi planar and 3D reconstruction. Comparison is made with September,. The pulmonary arteries and aorta are well opacified with IV contrast and no pulmonary emboli or aortic dissection is seen. There is motion at the level of the aortic and pulmonary roots. The lungs appear clear with the exception of mild left atelectasis versus scarring. No adenopathy is seen. There are no thoracic compression fractures. IMPRESSION: No evidence of pulmonary emboli or other acute abnormality.
[2018-10-15] MEDS: Omnipaque 350 MG/ML 100 ML BTL IJ (13:12)
[2018-10-15] MEDS: Normal Saline Flush 10 ML SYR IVP ×3 (13:30→19:47)
[2018-10-15] MEDS: Normal Saline 1,000 ML 125 ML IV ×2 (13:48→22:12)
--- NOTE | 2018-10-15 14:17 | DI.VRAD_ITS ---
EXAM: CT Angiography Chest With Contrast EXAM DATE/TIME: 10/15/2018 1:01 PM CLINICAL HISTORY: 63 years old, female; Signs and symptoms; Other: Elevated troponin, nausea, R/O pe; Additional info: Elevated troponin, nausea, R/O pe. , Chest pressure TECHNIQUE: Imaging protocol: Axial computed tomographic angiography images of the chest with intravenous contrast using CT angiography protocol. Coronal and sagittal reformatted images were created and reviewed. 3D rendering: MIP reconstructed images were created and reviewed. Radiation optimization: All CT scans at this facility use at least one of these dose optimization techniques: automated exposure control; mA and/or kV adjustment per patient size (includes targeted exams where dose is matched to clinical indication); or iterative reconstruction. Contrast material: omnipaque 350 Contrast volume: 64 ml Contrast route: iv COMPARISON: CT CHEST FOR PULMONARY EMBOLUS 11/29/2016 10:22 AM FINDINGS: Pulmonary arteries: No pulmonary embolus or aortic dissection. Aorta: Normal. No aortic aneurysm. No aortic dissection. Lungs: Left discoid atelectasis and/or scarring. Pleural space: Normal. No pneumothorax. No pleural effusion. Heart: Normal. No cardiomegaly. No pericardial effusion. Lymph nodes: Unremarkable. No enlarged lymph nodes. Bones/joints: Unremarkable. No acute fracture. Soft tissues: Unremarkable. IMPRESSION: No pulmonary embolus or aortic dissection. Dictated and Authenticated by: Adarsh Soto MD. Ordering:DEMARCO Hidalgo MD
[2018-10-15] MEDS: Ondansetron 4 MG/2 ML VIAL IVP (14:38)
[2018-10-15] MEDS: Aspirin E.C. 325 MG TABEC PO (14:48)
[2018-10-15 16:14] LABS: Troponin I 0.11 ng/mL (0.00-0.06)
[2018-10-15] MEDS: Enoxaparin 40 MG/0.4 ML SYR SC (16:37)
[2018-10-15] MEDS: LORazepam 2 MG/ML VIAL 1 MG IVP (18:27)
--- NOTE | 2018-10-15 19:43 | HPE_ITS ---
Date of service: 10/15/18 Time of Service: 16:35 Assessment and Plan (1) Elevated troponin: Current visit: Yes Status: Acute ?Due to NSTEMI/underlying CAD vs hypovolemia/strain vs hypertensive urgency (would then truly qualify as emergency). The patient states she has had a stress test in the past, but I am unable to find its results - at least, here. We will do a more complete search. Meanwhile, I am obtaining an echo and asking cardiology to see the patient. Continue baby asa. (2) Hypertensive urgency: Current visit: Yes Status: Acute Address anxiety first, prior to starting medications. I feel this patient might actually do quite well with a clonidine patch as it would also treat her anxiety if the problem persists. (3) Intractable nausea and vomiting: Current visit: Yes Status: Acute ?cyclic vomiting syndrome vs esophagitis/gastritis/GERD Patient's diet was downgraded to clear liquids, and she was placed on IV PPI BID. Also, I feel anxiety could be a big contributor to this. May require repeat EGD as outpatient given history of H. Pylori in the past. Could use dietary education on low acid foods. (4) Anxiety disorder: Current visit: Yes Status: Acute Continue home therapy in addition to prn ativan (patient has tolerated it in the past). (5) GERD (gastroesophageal reflux disease): Current visit: Yes Status: Chronic As above - on IV PPI BID (6) Discharge planning issues: Current visit: Yes Status: Acute Full code (7) DVT prophylaxis: Current visit: Yes Status: Acute Lovenox History of Present Illness Chief Complaint: nausea/vomiting x 1 week Narrative: Ms James is a 63 year old female with PMHx of 3 episodes of nausea/vomiting x several days in the last 3 years, as well as GERD, previously treated H. Pylori infection (x2), Anxiety and depression, who presented to [facility] for the third time today complaining of nausea/vomiting and feling of reflux. The patient states that both her and her had gastroenteritis about a week ago, and that at the time she, like her as well as a couple of other family members, had nausea, vomiting and diarrhea. Her recovered completely; however, she stopped having diarrhea on the 3rd day of symptoms, but continues to have severe nausea and occasional vomiting. It sounds like she felt better every time she came to ER, but then her symptoms would recur the night of the following day. She states she is taking all her medications. She endorses feeling anxious and does have some chest pressure, which she describes as reflux, going up from her stomach all the way up her mid-chest. She denies dizziness, fevers, actual chest pain, shortness of breath. She states she used to have a nonproductive cough, but doesn't now. She does have a taste of reflux in her mouth. Denies actual abdominal pain or cramping at this point, yet states that her abdomen feels like it is on fire. She states that the thing that does help her symptoms at home is taking hourly hot baths for 10 minutes. In the ED, she was found to have a RR in 20's with an elevated troponin (up to 0.11) without any acute ischemic EKG changes. CTA ruled out a PE. She was treated with IV pepcid and antiemetics. We were asked to admit the patient for further care. Review of Systems Review of Systems 12 systems reviewed. Pertinent positives and negatives are as per HPI [facility] Medical History H. pylori infection (Resolved) Abdominal pain Anxiety Arthralgia Chest heaviness Constipation Cough Depression Dyspnea GERD (gastroesophageal reflux disease) Hypercholesteremia Insomnia Menopause Overweight Thoracic spine pain Surgical History H/O colonoscopy (Resolved 06/23/18) Appendectomy (11/25/16) EGD - IV Sedation (02/23/16) Family History Other Esophageal cancer Heart disease Stroke Social History Smoking/Tobacco Use Status: Never Alcohol Intake: never Drug use: Daily Substance use type: marijuana Details: usually smokes marijuana every day, but hasn't been due to illness. although, she did try it to see if it would help with the nausea. Do you feel safe at home: Yes Do you feel safe in your relationship?: Yes History History Para 2 Hx # Term Pregnancies Multiple births Hx # Pregnancies Ectopic pregnancies AB induced Hx Number of Living Children AB spontaneous Meds Home Medications Medication Instructions Recorded Confirmed Type aspirin [Aspir-81] 81 mg PO DAILY tab-cap 06/05/13 10/15/18 History cholecalciferol (vit D3)(bulk) 100 gm MISCELLANEOUS DAILY 02/23/16 10/15/18 History multivitamin 1 ea PO DAILY 02/23/16 10/15/18 History docusate sodium [Colace] 100 mg PO DAILY PRN 11/24/16 10/15/18 History fluoxetine 10 mg capsule 10 mg PO DAILY 05/29/18 10/15/18 History ondansetron 4 mg PO Q8H PRN #9 tab 10/09/18 10/15/18 Rx buspirone 15 mg PO BID 10/15/18 10/15/18 History omeprazole 20 mg PO HS 10/15/18 10/15/18 History simvastatin 40 mg PO HS 10/15/18 10/15/18 History Allergies Allergy/AdvReac Type Severity Reaction Status Date / Time sertraline [From Zoloft] Allergy Intermediate shakes Verified 10/15/18 09:20 clonazepam AdvReac Intermediate Nausea Unverified 10/15/18 09:20 Exam Narrative Exam Narrative: General: Very anxious middle aged female, appears to have a dramatic manner about her, sometimes difficult to get a straight answer, comfortable in bed, but looks upset Neurological: A&OX3, no focal deficits Psychiatric: anxious Skin: intact/dry HEENT: EOMI, Dry MM, whitish film over tongue, no submandibular or cervical lymphadenopathy, no goiter or JVD Cardiovascular: RRR, no m/r/g Lungs: CTAB Gastrointestinal: abdomen is soft, nontender, nondistended Extremities: no e/c/c BLE's - 2 + pedal pulses B Results Imaging Additional studies: CTA chest: No pulmonary embolus or aortic dissection. EKG: NSR, HR 86, no acute ischemia Labs : 10/15/18 09:32 10/15/18 12:20 Laboratory Results - last 24 hr 10/15/18 10/15/18 10/15/18 09:32 09:32 09:32 WBC 12.33 H RBC 5.14 Hgb 15.3 Hct 42.2 MCV 82.1 MCH 29.8 MCHC 36.3 H RDW 13.3 Plt Count 331 D MPV 9.6 Immature Gran % 0.8 Neutrophils % 67.8 Lymphocytes % 17.1 Monocytes % 14.1 Eosinophils % 0.1 Basophils % 0.1 Absolute Neutrophils 8.36 H Absolute Lymphocytes 2.11 Absolute Monocytes 1.74 H Absolute Eosinophils 0.01 Absolute Basophils 0.01 Differential Comment Agrees w/ instrument RBC Morphology Normal Sodium 136 Potassium 2.7 L* Chloride 95 L Carbon Dioxide 25.5 Anion Gap 15.5 H BUN 17 Creatinine 1.14 H Estimated GFR/1.73 m2 48.14 Glucose 163 H Calcium 9.7 Magnesium 1.8 Total Bilirubin 0.5 AST 15 ALT 27 Alkaline Phosphatase 88 Troponin I 0.09 H* Cancelled Total Protein 7.6 Albumin 3.8 Lipase 304 10/15/18 10/15/18 10/15/18 12:20 12:20 15:50 WBC RBC Hgb Hct MCV MCH MCHC RDW Plt Count MPV Immature Gran % Neutrophils % Lymphocytes % Monocytes % Eosinophils % Basophils % Absolute Neutrophils Absolute Lymphocytes Absolute Monocytes Absolute Eosinophils Absolute Basophils Differential Comment RBC Morphology Sodium 138 Potassium 4.0 D Chloride 101 Carbon Dioxide 25.5 Anion Gap 11.5 H BUN 14 Creatinine 0.88 Estimated GFR/1.73 m2 >= 60.00 Glucose 110 H D Calcium 8.6 Magnesium Total Bilirubin AST ALT Alkaline Phosphatase Troponin I 0.11 H* 0.11 H* Total Protein Albumin Lipase Last Vital Signs Temp 36.5 C 10/15/18 16:20 Pulse 71 10/15/18 18:25 Resp 18 10/15/18 16:20 BP 184/92 H 10/15/18 17:00 Pulse Ox 96 10/15/18 16:20
[2018-10-15] MEDS: Pantoprazole 40 MG VIAL IVP (19:47)
[2018-10-15] MEDS: Simvastatin 40 MG TAB PO (22:11)
[2018-10-15] MEDS: busPIRone 15 MG TAB PO (22:11)
[2018-10-15] MEDS: FLUoxetine 10 MG TAB PO (22:11)
[2018-10-16] VITALS (9 sets, daily range): BP systolic 142–159; BP diastolic 66–88; PULSE 64–88; RESP 16–19; TEMP 36.5–37.5; O2SAT 97–98
[2018-10-16] MEDS: Normal Saline 1,000 ML 125 ML IV ×2 (05:20→16:52)
[2018-10-16 07:08] LABS: Abs Immature Grans 0.08 k/cumm (0.0-0.09); Absolute Basophil Count 0.03 k/cumm (0.0-0.2); Absolute Lymphocyte Count 2.86 k/cumm (1.2-3.4); Absolute Monocyte Count 1.26 k/cumm (0.11-0.7); Absolute Neutrophil Count 4.95 k/cumm (1.2-6.7); Basophils % 0.3; Eosinophils % 1.1; HCT 36.5 % (36.0-46.0); HGB 12.7 g/dL (12.0-15.5); Immature Grans % 0.9; Lymphocytes % 30.8; Mean Corp. HGB Concentration 34.8 g/dL (32.0-36.0); Mean Corpuscular Hemoglobin 29.9 pg (27.0-33.0); Mean Corpuscular Volume 85.9 fL (80-95); Mean Platelet Volume 9.2 fL (8.0-11.0); Monocytes % 13.6; Neutrophils % 53.3; Platelet Count 250 x1000/uL (130-400); RBC 4.25 m/cumm (4.00-5.20); RBC Distribution Width 13.3 % (11.7-14.6); White Blood Cell Count 9.28 k/cumm (4.4-10.8)
[2018-10-16 07:33] LABS: ALT 21 U/L (12-78); AST 11 U/L (15-37); Albumin 2.9 g/dL (3.4-5.0); Alkaline Phosphatase 70 U/L (46-116); Anion Gap 10.2 mmol/L (3-11); BUN 12 mg/dL (7-18); Bilirubin, Direct 0.12 mg/dL (0.00-0.20); Bilirubin, Total 0.4 mg/dL (0.2-1.0); CO2 24.8 mmol/L (21.0-32.0); CREATININE 1.03 mg/dL (0.55-1.02); Calcium 8.4 mg/dL (8.5-10.1); Chloride 106 mmol/L (98-107); Estimated GFR 54.12 (mL/min/1.73m2); Glucose 106 mg/dL (70-100); Magnesium 1.7 mg/dL (1.8-2.4); Potassium 3.3 mmol/L (3.5-5.1); Sodium 141 mmol/L (136-145); Total Protein 5.9 g/dL (6.4-8.2); Troponin I 0.05 ng/mL (0.00-0.06)
[2018-10-16 07:50] LABS: Cholesterol 117 mg/dL (50-200); HDL Cholesterol 40 mg/dL (40-60); LDL CHOLESTEROL 61 mg/dL (<100); Triglyceride 114 mg/dL (30-150)
[2018-10-16] MEDS: Normal Saline Flush 10 ML SYR IVP ×3 (08:16→19:53)
[2018-10-16] MEDS: Aspirin E.C. 81 MG TABEC PO (08:17)
[2018-10-16] MEDS: busPIRone 15 MG TAB PO ×2 (08:17→19:52)
[2018-10-16] MEDS: Pantoprazole 40 MG VIAL IVP ×2 (08:17→19:52)
[2018-10-16] MEDS: Multivitamin TAB 1 TAB PO (08:17)
[2018-10-16] MEDS: Potassium Chloride 20 MEQ TABCR 40 MEQ PO (10:13)
[2018-10-16] MEDS: MAGNESIUM SULFATE 4 GM/100 ML BAG IVPB (10:14)
--- NOTE | 2018-10-16 11:48 | PGE_ITS ---
Date of Service Date of service: 10/16/18 Time of Service: 11:42 Assessment and Plan (1) Elevated troponin: Start date: 10/16/18 Start time: 11:58 Current visit: Yes Status: Acute ?Due to NSTEMI/underlying CAD vs hypovolemia/strain vs hypertensive urgency (would then truly qualify as emergency). Consulted with cardiology, they recommend stress, stress test will be done this afternoon, if positive may require transfer to teritary facility. Denies Chest pain, SOB, chest tightness. (2) Hypertensive urgency: Start date: 10/16/18 Start time: 12:00 Current visit: Yes Status: Acute Improving today. BP in 150's systolic, stress test this afternoon, less anxious, continue to monitor. (3) Intractable nausea and vomiting: Current visit: Yes Status: Acute ?cyclic vomiting syndrome vs esophagitis/gastritis/GERD No episodes since last night, slight abdominal pain in mid epigastric area with palpation. Continue PPI BID, NPO right now for stress, continue with IVF, if stress test is negative will advanced patient diet to soft diet, and reassess if she is nausea and vomiting with this diet. (4) Anxiety disorder: Start date: 10/16/18 Start time: 12:07 Current visit: Yes Status: Acute Continue home therapy in addition to prn ativan (patient has tolerated it in the past). (5) GERD (gastroesophageal reflux disease): Start date: 10/16/18 Start time: 12:07 Current visit: Yes Status: Chronic As above - on IV PPI BID with improvement in symptoms (6) Hypomagnesemia: Start date: 10/16/18 Start time: 12:08 Current visit: Yes Status: Acute Mag 1.7 and K was 3.3, repleted with 4 grams of mag and 40 of potassium for optimal cardiac functioning. (7) Discharge planning issues: Start date: 10/16/18 Start time: 12:08 Current visit: Yes Status: Acute Full code (8) DVT prophylaxis: Current visit: Yes Status: Acute Lovenox Subjective Patient reports: feels better Interval history since last seen: Ms James is a 63 year old female with PMHx of 3 episodes of nausea/vomiting x several days in the last 3 years, as well as GERD, previously treated H. Pylori infection (x2), Anxiety and depression, who presented to [facility] ED for the third time yesterday complaining of nausea/vomiting and feeling of reflux. The patient states that both her and her had gastroenteritis about a week ago, and that at the time she, like her as well as a couple of other family members, had nausea, vomiting and diarrhea. Her recovered completely; however, she stopped having diarrhea on the 3rd day of symptoms, but continues to have severe nausea and occasional vomiting. It sounds like she felt better every time she came to ER, but then her symptoms would recur the night of the following day. She states she is taking all her medications. Today she is feeling better, she denies nausea, vomiting, diarrhea. Mild abdominal pain to mid epigastric area when palpating. Continue PPI and fluids until able to eat and tolerate diet. She is scheduled for a stress test today after consulting with Cardiology, she had increased troponins as high as 0.11 with normal kidney function and pulm onary illness. This could be possible NSTEMI, dehydration, or heart strain. Will treat based on stress, could need tertiary placement, if stress positive. Telemetry SR in 's. Exam Narrative Exam Narrative: General: Very anxious middle aged female, sometimes difficult to get a straight answer, comfortable in bed Neurological: A&OX3, no focal deficits Psychiatric: calm this am Skin: intact/dry HEENT: EOMI, Dry MM, whitish film over tongue, no submandibular or cervical lymphadenopathy, no goiter or JVD Cardiovascular: RRR, no m/r/g Lungs: Clear bilaterally Gastrointestinal: abdomen is soft, tender to mid epigastric region, nondistended Extremities: no e/c/c BLE's - 2 + pedal pulses B Objective Objective Clinical Data: Abnormal lab results 10/15/18 10/15/18 10/15/18 Range/Units 09:32 12:20 12:20 Absolute Monocytes (0.11-0.7) k/cumm Potassium 2.7 L* (3.5-5.1) mmol/L Anion Gap 11.5 H (3-11) mmol/L Creatinine (0.55-1.02) mg/dL Glucose 110 H D (70-100) mg/dL Calcium (8.5-10.1) mg/dL Magnesium (1.8-2.4) mg/dL AST (15-37) U/L Troponin I 0.11 H* (0.00-0.06) ng/mL Total Protein (6.4-8.2) g/dL Albumin (3.4-5.0) g/dL 10/15/18 10/16/18 10/16/18 Range/Units 15:50 06:45 06:45 Absolute Monocytes 1.26 H (0.11-0.7) k/cumm Potassium 3.3 L (3.5-5.1) mmol/L Anion Gap (3-11) mmol/L Creatinine 1.03 H (0.55-1.02) mg/dL Glucose 106 H (70-100) mg/dL Calcium 8.4 L (8.5-10.1) mg/dL Magnesium 1.7 L (1.8-2.4) mg/dL AST 11 L (15-37) U/L Troponin I 0.11 H* (0.00-0.06) ng/mL Total Protein 5.9 L (6.4-8.2) g/dL Albumin 2.9 L (3.4-5.0) g/dL Vital Signs Temperature 37.2 C 10/16/18 11:39 Temperature Source Tympanic 10/16/18 11:39 Pulse 69 10/16/18 11:39 Pulse Rhythm Regular 10/16/18 08:42 Pulse 72 10/15/18 15:20 Respiratory Rate 16 10/16/18 11:39 Respiratory Effort Non-Labored 10/16/18 08:42 Respiratory Depth Normal 10/16/18 08:42 Respiratory Pattern Normal 10/16/18 08:42 Blood Pressure 158/79 H 10/16/18 11:39 Blood Pressure Mean 103 10/15/18 15:15 Blood Pressure Position Sitting 10/15/18 09:13 Pulse Oximetry 98 10/16/18 11:39 Oxygen Delivery Method Room Air 10/16/18 11:39 Oxygen Flow Rate 0 10/16/18 11:39 Pain Level 0 10/16/18 07:40 Comment 10/15/18 17:00 Intake & Output 10/15/18 10/15/18 10/16/18 11:59 23:59 11:59 Intake Total 1000 / 3160 2160 / 3160 901.667 / 901.667 Output Total 1400 / 1400 Balance 1000 / 3160 2160 / 3160 -498.333 / -498.333 Weight 70.6 kg 70.6 kg Intake: IV 1000 / 3160 2160 / 3160 901.667 / 901.667 Output: Urine 1400 / 1400 Other: Urine Color Yellow Urine Appearance Clear Clear Urine Odor Normal Stool Size Small Moderate Stool Characteristics Soft Hard Formed Brown Brown Emesis Description Bile Voiding Methods Toilet Laboratory Results WBC 9.28 k/cumm (4.4-10.8) 10/16/18 06:45 RBC 4.25 m/cumm (4.00-5.20) 10/16/18 06:45 Hgb 12.7 g/dL (12.0-15.5) D 10/16/18 06:45 Hct 36.5 % (36.0-46.0) 10/16/18 06:45 MCV 85.9 fL (80-95) D 10/16/18 06:45 MCH 29.9 pg (27.0-33.0) 10/16/18 06:45 MCHC 34.8 g/dL (32.0-36.0) 10/16/18 06:45 RDW 13.3 % (11.7-14.6) 10/16/18 06:45 Plt Count 250 x1000/uL (130-400) 10/16/18 06:45 MPV 9.2 fL (8.0-11.0) 10/16/18 06:45 Immature Gran % 0.9 10/16/18 06:45 Neutrophils % 53.3 10/16/18 06:45 Lymphocytes % 30.8 10/16/18 06:45 Monocytes % 13.6 10/16/18 06:45 Eosinophils % 1.1 10/16/18 06:45 Basophils % 0.3 10/16/18 06:45 Absolute Neutrophils 4.95 k/cumm (1.2-6.7) 10/16/18 06:45 Absolute Lymphocytes 2.86 k/cumm (1.2-3.4) 10/16/18 06:45 Absolute Monocytes 1.26 k/cumm (0.11-0.7) H 10/16/18 06:45 Absolute Eosinophils 0.10 k/cumm (0.0-0.7) 10/16/18 06:45 Absolute Basophils 0.03 k/cumm (0.0-0.2) 10/16/18 06:45 Differential Comment Agrees w/ instrument 10/15/18 09:32 RBC Morphology Normal 10/15/18 09:32 Sodium 141 mmol/L (136-145) 10/16/18 06:45 Potassium 3.3 mmol/L (3.5-5.1) L 10/16/18 06:45 Chloride 106 mmol/L (98-107) 10/16/18 06:45 Carbon Dioxide 24.8 mmol/L (21.0-32.0) 10/16/18 06:45 Anion Gap 10.2 mmol/L (3-11) 10/16/18 06:45 BUN 12 mg/dL (7-18) 10/16/18 06:45 Creatinine 1.03 mg/dL (0.55-1.02) H 10/16/18 06:45 Estimated GFR/1.73 m2 54.12 (mL/min/1.73m2) 10/16/18 06:45 Glucose 106 mg/dL (70-100) H 10/16/18 06:45 Calcium 8.4 mg/dL (8.5-10.1) L 10/16/18 06:45 Magnesium 1.7 mg/dL (1.8-2.4) L 10/16/18 06:45 Total Bilirubin 0.4 mg/dL (0.2-1.0) 10/16/18 06:45 Conjugated Bilirubin 0.12 mg/dL (0.00-0.20) 10/16/18 06:45 AST 11 U/L (15-37) L 10/16/18 06:45 ALT 21 U/L (12-78) 10/16/18 06:45 Alkaline Phosphatase 70 U/L (46-116) 10/16/18 06:45 Troponin I 0.05 ng/mL (0.00-0.06) 10/16/18 06:45 Total Protein 5.9 g/dL (6.4-8.2) L 10/16/18 06:45 Albumin 2.9 g/dL (3.4-5.0) L 10/16/18 06:45 Triglycerides 114 mg/dL (30-150) 10/16/18 06:45 Total Cholesterol 117 mg/dL (50-200) 10/16/18 06:45 LDL Cholesterol Direct 61 mg/dL (<100) 10/16/18 06:45 HDL Cholesterol 40 mg/dL (40-60) 10/16/18 06:45 Lipase 304 U/L (73-393) 10/15/18 09:32
--- NOTE | 2018-10-16 12:00 | MERGEMPI_ITS ---
*[facility]* *[facility]* [address] [place] [address] Myocardial Perfusion Imaging - SPECT Nader protocol Date of study: 10/16/2018 *PATIENT PRESENTATION* Height: 170.2cm (67in) Blood Pressure: Weight: 70.5kg (155lb) BSA: 1.83m^2 Referring physician: Maddie Mccloud Ordering physician: Maddie Mccloud Impressions: Normal perfusion by Tc99m Sestamibi Imaging. Summary: 1. Myocardial perfusion imaging: No myocardial perfusion defects noted. 2. The calculated left ventricular ejection fraction after stress: 73%. 3. Stress: The target heart rate was achieved. Indication: R79.89. History: REASON FOR VISIT: INPATIENT FOR REPORTS OF NAUSEA AND VOMITING OVER PAST SEVERAL DAYS WITH ABDOMINAL PAIN AND CHEST PRESSURE THAT SHE DESCRIBES REFLUX. PATIENT HAD BEEN DIAGNOSED WITH GASTROENTERITIS ABOUT A WEEK AGO BUT HAS NOT RECOVERED COMPLETELY. PATIENT IS MILDLY NAUSEOUS AT TIME OF EXERCISE. PATIENT WITH ELEVATED TROPONINS AT TIME OF ADMISSION (0.11). PAST MEDICAL HISTORY: H. PYLORI INFECTION, ANXIETY, ARTHRALGIA, CHEST HEAVINESS, DEPRESSION, DYSPNEA, GERD, HYPERCHOLESTEREMIA. FAMILY HISTORY: FATHER (MYOCARDIAL INFARCTION), SISTER X 2 (MYOCARDIAL INFARCTION). SMOKING STATUS: OCCASIONAL MARIJUANA USE, MORE CONSISTENT OVER PAST THREE MONTHS. EXERCISE ROUTINE: SWIMMING 3 - 4X/WEEK FOR 1/2 - 1 HOUR, ELLIPTICAL. Imaging Technique: Protocol: Nader protocol. Acquisition: Gated SPECT; 1 day - rest/stress. The patient was imaged in the supine position. Attenuation correction used. Isotope administration: - Rest. Tc[99m]-sestamibi. Dose: 10mCi. Injection time: 12:10 PM. Injection to stress time: 00:45. - Stress. Tc[99m]-sestamibi. Dose: 30.6mCi. Injection time: 02:00 PM. 1-2 min before end of exercise Baseline ECG: SINUS RHYTHM, INVERTED T WAVE IN LEADS V1 AND V2. HEART RATE 66 BPM. Stress protocol: + +---+ + !Stage !HR !BP (mmHg) ! + +---+ + !Baseline supine !66 !150/80 (103)! + +---+ + !Baseline standing !86 !158/90 (113)! + +---+ + !Stage I; 1.7mph, 10degrees; 3 min !115!170/80 (110)! + +---+ + !Stage II; 2.5mph, 12degrees; 3 min!148!178/70 (106)! + +---+ + !Recovery; 4 min !77 !160/74 (103)! + +---+ + !Recovery; 6 min !73 !148/80 (103)! + +---+ + * Stress results: Maximal heart rate during stress was 156bpm (99% of maximal predicted heart rate). The maximal predicted heart rate was 157bpm. The target heart rate was achieved. The rate-pressure product for the peak heart rate and blood pressure was 24783gp Hg/min. Stress ECG: TREADMILL PORTION OF MPI STRESS TEST ENDED IN 6MIN 18SEC DUE TO PATIENT FATIGUE. APPROPRIATE HEART RATE AND BLOOD PRESSURE RESPONSE TO EXERCISE. MAXIMAL HEART RATE ACHIEVED 156 BPM, 97% OF TARGET. APPROXIMATE METS ACHIEVED 7.50. NO ANGINA REPORTED. NO ECTOPY NOTED. NO SIGNIFICANT ST SEGMENT CHANGES. AVERAGE FUNCTIONAL CAPACITY. Myocardial perfusion: Imaging information: gated. No myocardial perfusion defects noted. Ventricular Function (Wall Motion): The calculated left ventricular ejection fraction after stress: 73%. Study data: Adarsh Arcos MD supervised and was readily available during the procedure. This study was interpreted by [facility]. Study status: Routine. Consent: The risks, benefits, and alternatives to the procedure were explained to the patient and informed consent was obtained. Procedure: Initial setup. A baseline ECG was recorded. Surface ECG leads and manual cuff blood pressure measurements were monitored. Heart sounds: Normal. Lung sounds: Normal. Treadmill exercise testing was performed using the Nader protocol. Study completion: All catheters inserted during the procedure were removed. The patient tolerated the procedure well and was discharged from the lab. Discharge: The patient left the laboratory in stable condition. Birthdate: Patient birthdate: 1955. Sex: Gender: female. Study date: Study date: 10/16/2018. Study time: 00:01 AM. Electronically signed by Adarsh Arcos MD 10/16/2018 16:50
[2018-10-16 13:17] LABS: Troponin I 0.05 ng/mL (0.00-0.06)
--- NOTE | 2018-10-16 14:54 | PDOC.CMIN ---
- If Service Date Differs Date of service: 10/16/18 Time of Service: 14:54 Care Management Initial Assess REASON FOR HOSPITALIZATION:: Intractable nausea, vomting, elevated troponin. PAST MEDICAL HISTORY/PAST SURGICAL HISTORY:: H. pylori infection (Resolved),Abdominal pain,Anxiety,Arthralgia,Chest heaviness,Constipation,Cough,Depression,Dyspnea. GERD (gastroesophageal reflux disease),Hypercholesteremia,Insomnia,Menopause,Overweight,Thoracic spine pain. Surgical Hx: Colonoscopy, appendectomy, EGD PREVIOUS FUNCTIONAL STATUS/SOCIAL/FAMILY SUPPORTS:: Leona is a 63 year old female she lives with her SO Efren in [place], [place]. She has a daughter that lives nearby. Leona retired from [employer] she enjoys riding her motorcycle with her partner. She is indepedent with ADL's at baseline and transportation. CURRENT FUNCTIONAL STATUS:: Leona states she became sick about a week ago, she arrived to the ED last Tuesday and received IV fluids for dehydration. She states her family members have been ill with the stomach virus. She states she is feeling better today she is having a stress test this afternoon r/t elevated troponin. ADVANCE DIRECTIVES:: On file at [facility] Has patient been provided with information about the portal?: Yes Did the patient sign up for the portal?: Yes (Would like to enroll) INSURANCE COVERAGE / FINANCIAL ISSUES:: BCBS CURRENT HOME/COMMUNITY SERVICES/EQUIPMENT:: None PRIMARY CARE PHYSICIAN:: Sharyn Murray APRN [facility] POTENTIAL DISCHARGE NEEDS:: Follow up appointment with primary care scheduled prior to discharge. PATIENT/FAMILY EDUCATION NEEDS:: Discharge education, limitations and follow up plan of care including ask me three and self management. ANTICIPATED BARRIERS TO DISCHARGE:: None identified. TRANSPORTATION:: Via private car with SO at time of discharge. PLAN:: Leona remains on IV fluids she is not having any more vomiting. She is having a stress test today. Anticipate she will be discharged home pending results of stress test and cardiology consult. No anticipated services at time of discharge. CM provided information to sign up for patient portal.
--- NOTE | 2018-10-16 15:18 | INITIAL_ITS ---
- If Service Date Differs Date of service: 10/16/18 Time of Service: 14:54 Care Management Initial Assess REASON FOR HOSPITALIZATION:: Intractable nausea, vomting, elevated troponin. PAST MEDICAL HISTORY/PAST SURGICAL HISTORY:: H. pylori infection (Resolved) ,Abdominal pain,Anxiety,Arthralgia,Chest heaviness,Constipation,Cough,Depression,Dyspnea. GERD (gastroesophageal reflux disease),Hypercholesteremia,Insomnia,Menopause,Overweight,Thoracic spine pain. Surgical Hx: Colonoscopy, appendectomy, EGD PREVIOUS FUNCTIONAL STATUS/SOCIAL/FAMILY SUPPORTS:: Leona is a 63 year old female she lives with her SO Efren in [place], [place]. She has a daughter that lives nearby. Leona retired from [employer] she enjoys riding her motorcycle with her partner. She is indepedent with ADL's at baseline and transportation. CURRENT FUNCTIONAL STATUS:: Leona states she became sick about a week ago, she arrived to the ED last Tuesday and received IV fluids for dehydration. She states her family members have been ill with the stomach virus. She states she is feeling better today she is having a stress test this afternoon r/t elevated troponin. ADVANCE DIRECTIVES:: On file at [facility] Has patient been provided with information about the portal?: Yes Did the patient sign up for the portal?: Yes (Would like to enroll) INSURANCE COVERAGE / FINANCIAL ISSUES:: BCBS CURRENT HOME/COMMUNITY SERVICES/EQUIPMENT:: None PRIMARY CARE PHYSICIAN:: Sharyn Murray APRN [facility] POTENTIAL DISCHARGE NEEDS:: Follow up appointment with primary care scheduled prior to discharge. PATIENT/FAMILY EDUCATION NEEDS:: Discharge education, limitations and follow up plan of care including ask me three and self management. ANTICIPATED BARRIERS TO DISCHARGE:: None identified. TRANSPORTATION:: Via private car with SO at time of discharge. PLAN:: Leona remains on IV fluids she is not having any more vomiting. She is having a stress test today. Anticipate she will be discharged home pending results of stress test and cardiology consult. No anticipated services at time of discharge. CM provided information to sign up for patient portal.
--- NOTE | 2018-10-16 15:35 | W.PM.PROGNOT ---
Date of Service Date of service: 10/16/18 Time of Service: 15:35 Subjective Interval history since last seen: Stress test was negative, increase diet to soft normal bland and monitor overnight. Telemetry dcd. Objective Objective Clinical Data: Abnormal lab results 10/15/18 10/16/18 10/16/18 Range/Units 15:50 06:45 06:45 Absolute Monocytes 1.26 H (0.11-0.7) k/cumm Potassium 3.3 L (3.5-5.1) mmol/L Creatinine 1.03 H (0.55-1.02) mg/dL Glucose 106 H (70-100) mg/dL Calcium 8.4 L (8.5-10.1) mg/dL Magnesium 1.7 L (1.8-2.4) mg/dL AST 11 L (15-37) U/L Troponin I 0.11 H* (0.00-0.06) ng/mL Total Protein 5.9 L (6.4-8.2) g/dL Albumin 2.9 L (3.4-5.0) g/dL Vital Signs Temperature 37.2 C 10/16/18 11:39 Temperature Source Tympanic 10/16/18 11:39 Pulse 69 10/16/18 11:39 Pulse Rhythm Regular 10/16/18 08:42 Pulse 72 10/15/18 15:20 Respiratory Rate 16 10/16/18 11:39 Respiratory Effort Non-Labored 10/16/18 08:42 Respiratory Depth Normal 10/16/18 08:42 Respiratory Pattern Normal 10/16/18 08:42 Blood Pressure 158/79 H 10/16/18 11:39 Blood Pressure Mean 103 10/15/18 15:15 Blood Pressure Position Sitting 10/15/18 09:13 Pulse Oximetry 98 10/16/18 11:39 Oxygen Delivery Method Room Air 10/16/18 11:39 Oxygen Flow Rate 0 10/16/18 11:39 Pain Level 0 10/16/18 07:40 Comment 10/15/18 17:00 Intake & Output 10/15/18 10/16/18 10/16/18 23:59 11:59 23:59 Intake Total 2160 / 3160 901.667 / 901.667 Output Total 1400 / 1400 Balance 2160 / 3160 -498.333 / -498.333 Weight 70.6 kg Intake: IV 2160 / 3160 901.667 / 901.667 Output: Urine 1400 / 1400 Other: Urine Color Yellow Urine Appearance Clear Clear Urine Odor Normal Stool Size Moderate Stool Characteristics Hard Brown Voiding Methods Toilet Laboratory Results WBC 9.28 k/cumm (4.4-10.8) 10/16/18 06:45 RBC 4.25 m/cumm (4.00-5.20) 10/16/18 06:45 Hgb 12.7 g/dL (12.0-15.5) D 10/16/18 06:45 Hct 36.5 % (36.0-46.0) 10/16/18 06:45 MCV 85.9 fL (80-95) D 10/16/18 06:45 MCH 29.9 pg (27.0-33.0) 10/16/18 06:45 MCHC 34.8 g/dL (32.0-36.0) 10/16/18 06:45 RDW 13.3 % (11.7-14.6) 10/16/18 06:45 Plt Count 250 x1000/uL (130-400) 10/16/18 06:45 MPV 9.2 fL (8.0-11.0) 10/16/18 06:45 Immature Gran % 0.9 10/16/18 06:45 Neutrophils % 53.3 10/16/18 06:45 Lymphocytes % 30.8 10/16/18 06:45 Monocytes % 13.6 10/16/18 06:45 Eosinophils % 1.1 10/16/18 06:45 Basophils % 0.3 10/16/18 06:45 Absolute Neutrophils 4.95 k/cumm (1.2-6.7) 10/16/18 06:45 Absolute Lymphocytes 2.86 k/cumm (1.2-3.4) 10/16/18 06:45 Absolute Monocytes 1.26 k/cumm (0.11-0.7) H 10/16/18 06:45 Absolute Eosinophils 0.10 k/cumm (0.0-0.7) 10/16/18 06:45 Absolute Basophils 0.03 k/cumm (0.0-0.2) 10/16/18 06:45 Differential Comment Agrees w/ instrument 10/15/18 09:32 RBC Morphology Normal 10/15/18 09:32 Sodium 141 mmol/L (136-145) 10/16/18 06:45 Potassium 3.3 mmol/L (3.5-5.1) L 10/16/18 06:45 Chloride 106 mmol/L (98-107) 10/16/18 06:45 Carbon Dioxide 24.8 mmol/L (21.0-32.0) 10/16/18 06:45 Anion Gap 10.2 mmol/L (3-11) 10/16/18 06:45 BUN 12 mg/dL (7-18) 10/16/18 06:45 Creatinine 1.03 mg/dL (0.55-1.02) H 10/16/18 06:45 Estimated GFR/1.73 m2 54.12 (mL/min/1.73m2) 10/16/18 06:45 Glucose 106 mg/dL (70-100) H 10/16/18 06:45 Calcium 8.4 mg/dL (8.5-10.1) L 10/16/18 06:45 Magnesium 1.7 mg/dL (1.8-2.4) L 10/16/18 06:45 Total Bilirubin 0.4 mg/dL (0.2-1.0) 10/16/18 06:45 Conjugated Bilirubin 0.12 mg/dL (0.00-0.20) 10/16/18 06:45 AST 11 U/L (15-37) L 10/16/18 06:45 ALT 21 U/L (12-78) 10/16/18 06:45 Alkaline Phosphatase 70 U/L (46-116) 10/16/18 06:45 Troponin I 0.05 ng/mL (0.00-0.06) 10/16/18 12:41 Total Protein 5.9 g/dL (6.4-8.2) L 10/16/18 06:45 Albumin 2.9 g/dL (3.4-5.0) L 10/16/18 06:45 Triglycerides 114 mg/dL (30-150) 10/16/18 06:45 Total Cholesterol 117 mg/dL (50-200) 10/16/18 06:45 LDL Cholesterol Direct 61 mg/dL (<100) 10/16/18 06:45 HDL Cholesterol 40 mg/dL (40-60) 10/16/18 06:45 Lipase 304 U/L (73-393) 10/15/18 09:32
--- NOTE | 2018-10-16 16:23 | PHARADMIT ---
Admission Pharmacy Clinical Review intractable N/V, elevated troponin ?NSTEMI Code Status Full Code Current Weight 70.6 kg Renally Cleared and Narrow Therapeutic Index Meds Crcl ~54.3 mL/min current meds okay QTc Value / Action Taken QTc 441 BP Control, Fever BP 153/84 afebrile Electrolytes reviewed K+ 3.3 mag 1.7 DVT Prophylaxis enoxaparin Opiate Usage / Scheduled Bowel Regimen Ordered no/prn Plt/SCr for Heparin / Enoxaparin plt 250 SCr 1.03 INR for Warfarin n/a H/H stable, WBC/Bands h/h 12.7/36.5 WBC 9.28 Antibiotic appropriateness none Cultures and Sensitivities n/a Surgical ABX d/c within 24 hr n/a DM control / Insulin Dosing BG 106 Heart Failure (Check EF%) (STONEY's, B-Block, Diuretics) metoprolol IV to PO Switch n/a Home Meds Reviewed -multiple forms of vitamin D may enhance adverse/toxic effects -buspirone, fluoxetine and trazodone may enhance the serotonergic effects of each other and increase risk of adverse/toxic effects (serotonin syndrome)- MD is aware Home Meds Not Ordered cholecalciferol, omeprazole Comments stress test was negative per progress note
[2018-10-16] MEDS: Enoxaparin 40 MG/0.4 ML SYR SC (16:58)
[2018-10-16] MEDS: Simvastatin 40 MG TAB PO (21:02)
[2018-10-16] MEDS: FLUoxetine 10 MG TAB PO (21:02)
[2018-10-16] MEDS: traZODone 50 MG TAB PO (21:02)
[2018-10-16] MEDS: Acetaminophen 325 MG TAB PO (23:16)
[2018-10-17] MEDS: Normal Saline 1,000 ML 125 ML IV ×2 (00:32→08:07)
[2018-10-17 03:30] VITALS: BP 163/80; PULSE 102; RESP 18; TEMP 36.2; O2SAT 98
[2018-10-17 07:15] VITALS: BP 173/90; PULSE 76; RESP 18; TEMP 36.6; O2SAT 98
[2018-10-17] MEDS: Normal Saline Flush 10 ML SYR IVP (08:09)
[2018-10-17] MEDS: busPIRone 15 MG TAB PO (08:09)
[2018-10-17] MEDS: Pantoprazole 40 MG VIAL IVP (08:09)
[2018-10-17] MEDS: Aspirin E.C. 81 MG TABEC PO (08:09)
[2018-10-17] MEDS: Multivitamin TAB 1 TAB PO (08:09)
[2018-10-17] MEDS: Ondansetron 4 MG/2 ML VIAL IVP (08:46)
--- NOTE | 2018-10-17 10:01 | W.NUTCONSULT ---
Date of service: 10/17/18 Time of Service: 10:02 Nutritional Consult ASSESSMENT: Nutrition consult for GERD nutrition therapy education. Ms. James is 67 and 72.5 kg. Her BMI is 25 kg/m2 which is WNL for her age. She describes a diet that is healthful with a balance of unhealthy foods. She eats small meals frequently throughout the day. She states she would like information on how to eat more healthfully, She reports that she is physically active every day. NUTRITIONAL DIAGNOSIS: Altered gastrointestinal status related to GERD. INTERVENTION: We reviewed GERD nutrition therapy. Acknowledged the positive things she was doing to help her GERD such as maintaining a healthy weight, not eating after 6 pm which is three hours prior to her bed time, being physically active and wearing loose clothing. Provided written materials re: GERD nutrition therapy as well as the DASH eating plan for overall good nutrition. We discussed DASH nutrition and how she could incorporate it into her lifestyle as well as her GERD. Ms. James verbalized an excellent understanding of our session as well as demonstrated an interest in coming back to see me as an outpatient. Anticipate good compliance. MONITORING AND EVALUATION: 1. Ms. James will monitor her progress with her nutrition therapies and will ask for an outpatient referral to RD. 2. She or we can evaluate her nutrition care plan accordingly. Thank you for the consult Time Spent in Nutritional Counseling and Treatment: JOSIANE
[2018-10-17 11:15] VITALS: BP 147/67; PULSE 77; RESP 18; TEMP 37.2; O2SAT 98
--- NOTE | 2018-10-17 13:24 | PDOC.CMDIS ---
- If Service Date Differs Date of service: 10/17/18 Time of Service: 13:24 LACE Index Scoring Tool - Questions: Length of Stay (in days): 2 Acuity (Admit via E.D.?): Yes E.D. Visits: 3 - Answers: Total Score: 8 Risk of Readmission: Low Risk Care Management Discharge Reason for Hospitalization: Intractable nausea, vomting, elevated troponin. Discharge Plan: Leona will return home today with no services. Her SO Efren will transport her. Leona to F/U with PCP and plan of care as prescribed. Patient/Family Education Needs: Review DC instructions, any limitations, and discuss 'Ask Me Three'
--- NOTE | 2018-10-17 13:41 | W.PM.DS.N ---
Date of service: 10/17/18 Time of Service: 13:41 DS: Diagnosis Discharge Diagnosis (1) Elevated troponin: Status: Acute (2) Hypertensive urgency: Status: Acute (3) Intractable nausea and vomiting: Status: Acute (4) Anxiety disorder: Status: Acute (5) GERD (gastroesophageal reflux disease): Status: Chronic (6) Hypomagnesemia: Status: Acute Discharge Plan Disposition Patient Disposition: HOME Condition: Stable Discharge Details Reason For Visit: INTRACTABLE LIN/VOM,ELEVATED TROPONIN-?NSTEMI Admit Date/Time: 10/15/18 14:33 Admit Provider: Maddie Mccloud Attending Provider: Maddie Mccloud [facility] Hospital Course: Ms James is a 63 year old female with PMHx of 3 episodes of nausea/vomiting x several days in the last 3 years, as well as GERD, marijuana use, previously treated H. Pylori infection (x2), Anxiety and depression, who presented to [facility] ED for the third time on 10/15/18 with reports of nausea, vomiting and worsening reflux. She that she and her both had gastroenteritis about a week prior and that the diarrhea had resolved, but she remained nauseous with vomiting. She reported taking hot baths to relieve her symptoms. In the ED, she was found to have an elevated troponin (up to 0.11) without any ischemic changes on EKG. She had a CTA which was negative for PE. She was admitted to the floor for further evaluation and treatment. Her troponin trended down. The elevated troponin was in the setting of hypertension and anxiety. Her anxiety improved, her blood pressure normalized. Her case was discussed with Cardiology with previous provider who recommended stress test. She went on to have a nuclear stress test which did not show myocardial perfusion defects. The calculated LVEF after stress was 73%, the target heart rate was achieved. Her nausea improved. She remained mildly nauseated, but she reported that the nausea was tolerable. Her PPI was increased and her GERD improved. She will be discharged on an increased PPI dose. Her magnesium and potassium were both low, she received supplementation. She should have follow up labs to reassess her electrolytes next week. She also reported regular cannabis use, this raises concern for cannabinoid hyperemesis syndrome, especially in the setting of frequent hot baths. This was discussed with her, she is advised to avoid smoking marijuana. She was seen by nutrition, she was provided education on a diet for GERD/gastritis. She is discharged home in improved condition. She tolerated her diet today. She will be provided with a small prescription antiemetic. She will follow up with her PCP as scheduled. Home Meds and New Rx's Prescriptions: New ondansetron 4 mg tablet,disintegrating 4 mg PO QID PRN (Reason: nausea and vomiting) Qty: 10 RF: 0 omeprazole 40 mg capsule,delayed release(DR/EC) 40 mg PO DAILY Qty: 30 RF: 0 Continued fluoxetine 10 mg capsule 10 mg PO HS RF: 0 aspirin [Aspir-81] 81 MG tablet,delayed release (DR/EC) 81 mg PO DAILY RF: 0 multivitamin 1 EACH capsule 1 ea PO DAILY RF: 0 cholecalciferol (vit D3)(bulk) 1,000 GM liquid 100 gm Miscellaneous DAILY RF: 0 docusate sodium [Colace] 100 MG capsule 100 mg PO DAILY PRNRF: 0 simvastatin 40 mg Tablet 40 mg PO HS RF: 0 buspirone 15 mg Tablet 15 mg PO BID RF: 0 Discontinued ondansetron 4 mg tablet,disintegrating 4 mg PO Q8H PRN (Reason: nausea and vomiting) Qty: 9 RF: 0 omeprazole 20 mg Capsule,Delayed Release(Dr/Ec) 20 mg PO HS RF: 0 Discharge Instructions Instructions: Diet for Stomach Ulcers and Gastritis (GEN), Gastroesophageal Reflux Disease (DC), Acute Nausea and Vomiting (DC) Additional Instructions: Increase Omeprazole to 40 mg daily in the morning. Take Zofran as needed for nausea. Continue to drink liquids to stay hydrated. Return to your normal diet slowly as tolerated. Research: Cyclic vomiting syndrome/cannabinoid hyperemesis syndrome. Refrain from smoking marijuana. Follow-up with your primary care provider as scheduled. Take care! Stand Alone Forms: Nursing Discharge Form Referrals: Tracie Murray [Primary Care Provider] - 10/24/18 8:55 am Activity:: Activity as Tolerated Equipment/Supplies:: No Equipment Needed Diet:: As Tolerated Discharge Orders Discharge Orders: Discharge Order (Routine); Ordered 10/17/18 Ordered By: Adriana Trejo Other Ambulatory Orders: Basic Metabolic Panel (Routine) Timeframe: 20181023 Location: Determined by Patient Ordered By: Adriana Trejo Magnesium (Routine) Timeframe: 20181023 Location: Determined by Patient Ordered By: Adriana Trejo Exam Narrative Exam Narrative: General: middle aged female, sitting up in the chair, appears comfortable, no acute distress. Neurological: A&OX3, no focal deficits HEENT: EOMI, pupils equal and round, moist mucous membranes. Neck: supple, no JVD. Cardiovascular: regular rate and rhythm, no murmur appreciated. Lungs: respirations even and unlabored, lung sounds clear throughout. Gastrointestinal: normoactive bowel sounds, abdomen is soft, nontender, nondistended Extremities: no clubbing, cyanosis or edema. Peripheral pulses palpable bilaterally. DS: Data Vitals/I&O Vitals and I&O: Vital Signs Temperature 37.2 C 10/17/18 11:15 Temperature Source Tympanic 10/17/18 11:15 Pulse 77 10/17/18 11:15 Pulse Rhythm Regular 10/16/18 20:45 Pulse 72 10/15/18 15:20 Respiratory Rate 18 10/17/18 11:15 Respiratory Effort 10/16/18 20:45 Respiratory Depth Normal 10/16/18 20:45 Respiratory Pattern Normal 10/16/18 20:45 Blood Pressure 147/67 H 10/17/18 11:15 Blood Pressure Mean 103 10/15/18 15:15 Blood Pressure Position Sitting 10/15/18 09:13 Pulse Oximetry 98 10/17/18 11:15 Oxygen Delivery Method Room Air 10/17/18 11:15 Oxygen Flow Rate 0 10/17/18 11:15 Pain Level 6 10/16/18 23:16 Comment 10/15/18 17:00 Intake & Output 10/16/18 10/17/18 10/17/18 23:59 11:59 23:59 Intake Total 1200 / 2101.667 3083.333 / 3083.333 Balance 1200 / 264.167 4536.333 / 3083.333 Weight 72.5 kg Intake: IV 1200 / 2101.667 2333.333 / 2333.333 Oral 750 / 750 Other: Comment indepandant to the toilet denies symptoms Completed studies during hospitalization [Text1]: 10/15/18: CHEST CT FOR PULMONARY EMBOLISM: CT angiography was performed with multi slice acquisition and multi planar and 3D reconstruction. Comparison is made with September,. The pulmonary arteries and aorta are well opacified with IV contrast and no pulmonary emboli or aortic dissection is seen. There is motion at the level of the aortic and pulmonary roots. The lungs appear clear with the exception of mild left atelectasis versus scarring. No adenopathy is seen. There are no thoracic compression fractures. IMPRESSION: No evidence of pulmonary emboli or other acute abnormality. Date of study: 10/16/2018 *PATIENT PRESENTATION* Height: 170.2cm (67in) Blood Pressure: Weight: 70.5kg (155lb) BSA: 1.83m^2 Referring physician: Maddie Mccloud Ordering physician: Maddie Mccloud Impressions: Normal perfusion by Tc99m Sestamibi Imaging. Summary: 1. Myocardial perfusion imaging: No myocardial perfusion defects noted. 2. The calculated left ventricular ejection fraction after stress: 73%. 3. Stress: The target heart rate was achieved. [facility] Medical History H. pylori infection (Resolved) Abdominal pain Anxiety Arthralgia Chest heaviness Constipation Cough Depression Dyspnea GERD (gastroesophageal reflux disease) Hypercholesteremia Insomnia Menopause Overweight Thoracic spine pain Surgical History H/O colonoscopy (Resolved 06/23/18) Appendectomy (11/25/16) EGD - IV Sedation (02/23/16) Family History Other Esophageal cancer Heart disease Stroke Social History Smoking/Tobacco Use Status: Never Alcohol Intake: never Drug use: Daily Substance use type: marijuana Details: usually smokes marijuana every day, but hasn't been due to illness. although, she did try it to see if it would help with the nausea. Do you feel safe at home: Yes Do you feel safe in your relationship?: Yes History History Para 2 Hx # Term Pregnancies Multiple births Hx # Pregnancies Ectopic pregnancies AB induced Hx Number of Living Children AB spontaneous
--- NOTE | 2018-10-17 13:46 | DSE_ITS ---
Date of service: 10/17/18 Time of Service: 13:41 DS: Diagnosis Discharge Diagnosis (1) Elevated troponin: Status: Acute (2) Hypertensive urgency: Status: Acute (3) Intractable nausea and vomiting: Status: Acute (4) Anxiety disorder: Status: Acute (5) GERD (gastroesophageal reflux disease): Status: Chronic (6) Hypomagnesemia: Status: Acute Discharge Plan Disposition Patient Disposition: HOME Condition: Stable Discharge Details Reason For Visit: INTRACTABLE LIN/VOM,ELEVATED TROPONIN-?NSTEMI Admit Date/Time: 10/15/18 14:33 Admit Provider: Maddie Mccloud Attending Provider: Maddie Mccloud [facility] Hospital Course: Ms James is a 63 year old female with PMHx of 3 episodes of nausea/vomiting x several days in the last 3 years, as well as GERD, marijuana use, previously treated H. Pylori infection (x2), Anxiety and depression, who presented to [facility] ED for the third time on 10/15/18 with reports of nausea, vomiting and worsening reflux. She that she and her both had gastroenteritis about a week prior and that the diarrhea had resolved, but she remained nauseous with vomiting. She reported taking hot baths to relieve her symptoms. In the ED, she was found to have an elevated troponin (up to 0.11) without any ischemic changes on EKG. She had a CTA which was negative for PE. She was admitted to the floor for further evaluation and treatment. Her troponin trended down. The elevated troponin was in the setting of hypertension and anxiety. Her anxiety improved, her blood pressure normalized. Her case was discussed with Cardiology with previous provider who recommended stress test. She went on to have a nuclear stress test which did not show myocar dial perfusion defects. The calculated LVEF after stress was 73%, the target heart rate was achieved. Her nausea improved. She remained mildly nauseated, but she reported that the nausea was tolerable. Her PPI was increased and her GERD improved. She will be discharged on an increased PPI dose. Her magnesium and potassium were both low, she received supplementation. She should have follow up labs to reassess her electrolytes next week. She also reported regular cannabis use, this raises concern for cannabinoid hyperemesis syndrome, especially in the setting of frequent hot baths. This was discussed with her, she is advised to avoid smoking marijuana. She was seen by nutrition, she was provided education on a diet for GERD/gastritis. She is discharged home in improved condition. She tolerated her diet today. She will be provided with a small prescription antiemetic. She will follow up with her PCP as scheduled. Home Meds and New Rx's Prescriptions: New ondansetron 4 mg tablet,disintegrating 4 mg PO QID PRN (Reason: nausea and vomiting) Qty: 10 RF: 0 omeprazole 40 mg capsule,delayed release(DR/EC) 40 mg PO DAILY Qty: 30 RF: 0 Continued fluoxetine 10 mg capsule 10 mg PO HS RF: 0 aspirin [Aspir-81] 81 MG tablet,delayed release (DR/EC) 81 mg PO DAILY RF: 0 multivitamin 1 EACH capsule 1 ea PO DAILY RF: 0 cholecalciferol (vit D3)(bulk) 1,000 GM liquid 100 gm Miscellaneous DAILY RF: 0 docusate sodium [Colace] 100 MG capsule 100 mg PO DAILY PRNRF: 0 simvastatin 40 mg Tablet 40 mg PO HS RF: 0 buspirone 15 mg Tablet 15 mg PO BID RF: 0 Discontinued ondansetron 4 mg tablet,disintegrating 4 mg PO Q8H PRN (Reason: nausea and vomiting) Qty: 9 RF: 0 omeprazole 20 mg Capsule,Delayed Release(Dr/Ec) 20 mg PO HS RF: 0 Discharge Instructions Instructions: Diet for Stomach Ulcers and Gastritis (GEN), Gastroesophageal Reflux Disease (DC), Acute Nausea and Vomiting (DC) Additional Instructions: Increase Omeprazole to 40 mg daily in the morning. Take Zofran as needed for nausea. Continue to drink liquids to stay hydrated. Return to your normal diet slowly as tolerated. Research: Cyclic vomiting syndrome/cannabinoid hyperemesis syndrome. Refrain from smoking marijuana. Follow-up with your primary care provider as scheduled. Take care! Stand Alone Forms: Nursing Discharge Form Referrals: Tracie Murray [Primary Care Provider] - 10/24/18 8:55 am Activity:: Activity as Tolerated Equipment/Supplies:: No Equipment Needed Diet:: As Tolerated Discharge Orders Discharge Orders: Discharge Order (Routine); Ordered 10/17/18 Ordered By: Adriana Trejo Other Ambulatory Orders: Basic Metabolic Panel (Routine) Timeframe: 20181023 Location: Determined by Patient Ordered By: Adriana Neil Magnesium (Routine) Timeframe: 20181023 Location: Determined by Patient Ordered By: Adriana Trejo Exam Narrative Exam Narrative: General: middle aged female, sitting up in the chair, appears comfortable, no acute distress. Neurological: A&OX3, no focal deficits HEENT: EOMI, pupils equal and round, moist mucous membranes. Neck: supple, no JVD. Cardiovascular: regular rate and rhythm, no murmur appreciated. Lungs: respirations even and unlabored, lung sounds clear throughout. Gastrointestinal: normoactive bowel sounds, abdomen is soft, nontender, n ondistended Extremities: no clubbing, cyanosis or edema. Peripheral pulses palpable bilaterally. DS: Data Vitals/I&O Vitals and I&O: Vital Signs Temperature 37.2 C 10/17/18 11:15 Temperature Source Tympanic 10/17/18 11:15 Pulse 77 10/17/18 11:15 Pulse Rhythm Regular 10/16/18 20:45 Pulse 72 10/15/18 15:20 Respiratory Rate 18 10/17/18 11:15 Respiratory Effort 10/16/18 20:45 Respiratory Depth Normal 10/16/18 20:45 Respiratory Pattern Normal 10/16/18 20:45 Blood Pressure 147/67 H 10/17/18 11:15 Blood Pressure Mean 103 10/15/18 15:15 Blood Pressure Position Sitting 10/15/18 09:13 Pulse Oximetry 98 10/17/18 11:15 Oxygen Delivery Method Room Air 10/17/18 11:15 Oxygen Flow Rate 0 10/17/18 11:15 Pain Level 6 10/16/18 23:16 Comment 10/15/18 17:00 Intake & Output 10/16/18 10/17/18 10/17/18 23:59 11:59 23:59 Intake Total 1200 / 2101.667 3083.333 / 3083.333 Balance 1200 / 820.191 1988.333 / 3083.333 Weight 72.5 kg Intake: IV 1200 / 2101.667 2333.333 / 2333.333 Oral 750 / 750 Other: Comment indepandant to the toilet denies symptoms Completed studies during hospitalization [Text1]: 10/15/18: CHEST CT FOR PULMONARY EMBOLISM: CT angiography was performed with multi slice acquisition and multi planar and 3D reconstruction. Comparison is made with September,. The pulmonary arteries and aorta are well opacified with IV contrast and no pulmonary emboli or aortic dissection is seen. There is motion at the level of the aortic and pulmonary roots. The lungs appear clear with the exception of mild left atelectasis versus scarring. No adenopathy is seen. There are no thoracic compression fractures. IMPRESSION: No evidence of pulmonary emboli or other acute abnormality. Date of study: 10/16/2018 *PATIENT PRESENTATION* Height: 170.2cm (67in) Blood Pressure: Weight: 70.5kg (155lb) BSA: 1.83m^2 Referring physician: Maddie Mccloud Ordering physician: Maddie Mccloud Impressions: Normal perfusion by Tc99m Sestamibi Imaging. Summary: 1. Myocardial perfusion imaging: No myocardial perfusion defects noted. 2. The calculated left ventricular ejection fraction after stress: 73%. 3. Stress: The target heart rate was achieved. [facility] Medical History H. pylori infection (Resolved) Abdominal pain Anxiety Arthralgia Chest heaviness Constipation Cough Depression Dyspnea GERD (gastroesophageal reflux disease) Hypercholesteremia Insomnia Menopause Overweight Thoracic spine pain Surgical History H/O colonoscopy (Resolved 06/23/18) Appendectomy (11/25/16) EGD - IV Sedation (02/23/16) Family History Other Esophageal cancer Heart disease Stroke Social History Smoking/Tobacco Use Status: Never Alcohol Intake: never Drug use: Daily Substance use type: marijuana Details: usually smokes marijuana every day, but hasn't been due to illness. although, she did try it to see if it would help with the nausea. Do you feel safe at home: Yes Do you feel safe in your relationship?: Yes History History Para 2 Hx # Term Pregnancies Multiple births Hx # Pregnancies Ectopic pregnancies AB induced Hx Number of Living Children AB spontaneous
--- NOTE | 2018-10-17 15:21 | CHAPLAIN ---
Anuradha Delgadillo, was sitting up in her chair visiting with her SO, Efren, when stopped in. She said is feeling better but doesn't expect to be discharged today. She got a shower today and that was relaxing she said. Leona told me about her family and her symptoms that led her here. She seems to be well supported and comfortable.
[2018-10-17 15:54] VITALS: BP 159/81; PULSE 77; RESP 19; TEMP 37.5; O2SAT 97
== END 2018-10-17 16:25 | disposition home or self-care (01) | DRG 392 ==
LOC: ER 14:44 → MS 15:56
PROVIDERS: Nurse Practitioner Family; Admitting Provider Internal Medicine; Emergency Provider Physician Assistant; PCP Nurse Practitioner Family; Visit Provider Internal Medicine
DX: R11.2 Nausea with vomiting, unspecified (principal); R77.8 Other specified abnormalities of plasma proteins; I16.0 Hypertensive urgency; F41.8 Other specified anxiety disorders; K21.9 Gastro-esophageal reflux disease without esophagitis; E87.6 Hypokalemia; E83.42 Hypomagnesemia; F12.90 Cannabis use, unspecified, uncomplicated
CPT/HCPCS: 36415; 71275; 78452; 80048; 80053; 80061; 80076; 83690; 83721; 93005; 96361; 96374; 96375; 99223; 99233; 99239; 99285; J1650; NC; 83735; 84484; 85025; 93010; 93017; J0780; J2060; J2405; J3475; J3480; J3490

== ENCOUNTER 2018-10-19 14:42 | Emergency (ER) | payer BC, SELFPAY ==
[2018-10-19] VITALS (23 sets, daily range): BP systolic 124–172; BP diastolic 74–112; PULSE 59–92; RESP 9–26; TEMP 36.5; O2SAT 97–99
--- NOTE | 2018-10-19 15:44 | DI.RAD_ITS ---
SYMPTOM/DIAGNOSIS: EPIGASTRIC PAIN PA AND LATERAL CHEST: Comparison is made with 11/24/16. The heart is normal in size. The lungs are clear. The mediastinal structures and pleura appear intact. CONCLUSION: Normal chest.
[2018-10-19 16:27] LABS: Abs Immature Grans 0.04 k/cumm (0.0-0.09); Absolute Basophil Count 0.02 k/cumm (0.0-0.2); Absolute Eosinophil Count 0.15 k/cumm (0.0-0.7); Absolute Lymphocyte Count 2.33 k/cumm (1.2-3.4); Absolute Monocyte Count 1.22 k/cumm (0.11-0.7); Absolute Neutrophil Count 6.04 k/cumm (1.2-6.7); Basophils % 0.2; Eosinophils % 1.5; HCT 36.4 % (36.0-46.0); HGB 12.4 g/dL (12.0-15.5); Immature Grans % 0.4; Lymphocytes % 23.8; Mean Corp. HGB Concentration 34.1 g/dL (32.0-36.0); Mean Corpuscular Hemoglobin 29.5 pg (27.0-33.0); Mean Corpuscular Volume 86.7 fL (80-95); Mean Platelet Volume 9.2 fL (8.0-11.0); Monocytes % 12.4; Neutrophils % 61.7; Platelet Count 234 x1000/uL (130-400); RBC Distribution Width 13.4 % (11.7-14.6)
[2018-10-19] MEDS: Simethicone 80 MG CHEW 40 MG PO (16:29)
[2018-10-19 16:45] LABS: ALT 27 U/L (12-78); AST 22 U/L (15-37); Albumin 3.3 g/dL (3.4-5.0); Alkaline Phosphatase 70 U/L (46-116); Anion Gap 10.1 mmol/L (3-11); BUN 14 mg/dL (7-18); Bilirubin, Total 0.4 mg/dL (0.2-1.0); CO2 26.9 mmol/L (21.0-32.0); CREATININE 1.03 mg/dL (0.55-1.02); Calcium 9.2 mg/dL (8.5-10.1); Chloride 103 mmol/L (98-107); Estimated GFR 54.12 (mL/min/1.73m2); Glucose 98 mg/dL (70-100); Lipase 603 U/L (73-393); Potassium 3.5 mmol/L (3.5-5.1); Sodium 140 mmol/L (136-145); Total Protein 6.8 g/dL (6.4-8.2); Troponin I 0.02 ng/mL (0.00-0.06)
[2018-10-19] MEDS: Normal Saline 1,000 ML 1000 ML IV (17:02)
--- NOTE | 2018-10-19 17:11 | DI.VRAD_ITS ---
EXAM: XR Chest, 2 Views EXAM DATE/TIME: 10/19/2018 3:44 PM CLINICAL HISTORY: 63 years old, female; Signs and symptoms; Other: Epigastric pain TECHNIQUE: Imaging protocol: XR of the chest, 2 views. COMPARISON: CR ABD FLAT UPRIGHT PA CHEST 11/29/2016 9:18 AM FINDINGS: Lungs: The lungs are hyperinflated, consistent with underlying small airways disease.There are no focal air space opacities. Pleural space: Unremarkable. No pleural effusion. No pneumothorax. Heart/Mediastinum: Unremarkable. No cardiomegaly. Upper abdomen: No evidence of free air beneath the diaphragm. Bones/joints: Unremarkable. IMPRESSION: No evidence of an acute pulmonary process. There has been no significant change in comparison to the prior examination. Dictated and Authenticated by: Val Bartholomew MD. Ordering:SALEEM Iglesias MD
--- NOTE | 2018-10-19 17:14 | W.ED.GENAD ---
Discharge Plan Disposition Patient Disposition: HOME Condition: Good Discharge Details Chief Complaint: Abd Prob Clinical Impression: Acute pancreatitis Primary Care Provider: Tracie Murray ED Provider: Harris Morales Home Meds and New Rx's Prescriptions: No Action fluoxetine 10 mg capsule 10 mg PO HS RF: 0 aspirin [Aspir-81] 81 MG tablet,delayed release (DR/EC) 81 mg PO DAILY RF: 0 multivitamin 1 EACH capsule 1 ea PO DAILY RF: 0 cholecalciferol (vit D3)(bulk) 1,000 GM liquid 100 gm Miscellaneous DAILY RF: 0 docusate sodium [Colace] 100 MG capsule 100 mg PO DAILY PRNRF: 0 simvastatin 40 mg Tablet 40 mg PO HS RF: 0 buspirone 15 mg Tablet 15 mg PO BID RF: 0 ondansetron 4 mg tablet,disintegrating 4 mg PO QID PRN (Reason: nausea and vomiting) Qty: 10 RF: 0 omeprazole 40 mg capsule,delayed release(DR/EC) 40 mg PO DAILY Qty: 30 RF: 0 trazodone 50 mg Tablet 50 - 100 mg PO HS RF: 0 Discharge Instructions Instructions: Pancreatitis (ED) Additional Instructions: Please drink clear fluids, avoid anything fatty or very sugary. Do your best to stick with the diet mainly comprised of clear liquids. Please utilize the diet that we discussed together. If you notice any worsening of your symptoms, or any new symptoms such as vomiting, diarrhea, fever, chills, shortness of breath, chest pain, numbness, weakness, or fainting , please return immediately to the emergency department for reevaluation. Please follow up with your primary care provider as soon as possible for reassessment and reevaluation. As always, it was a pleasure participating in your medical care today. Referrals: Tracie Murray [Primary Care Provider] - Medical Decision Making Laboratory workup has returned negative for any acute cardiopulmonary process, however her lipase is elevated suggesting pancreatitis. Vital signs are stable, she is tolerating p.o. very well. She is requesting discharge, repeat abdominal exam demonstrates no significant tenderness. With reassuring vital signs, no signs of significant infection, and only mild pancreatitis with good p.o. tolerance I feel she can be safely discharged home for treatment of an outpatient basis. We discussed the appropriate diet which to have for this scenario, as well as red flags which to return. I have extensively reviewed the treatment plan and discharge instructions with the patient. I have addressed all patient concerns at this time. The patient was made aware of what symptoms to monitor for that would warrant a return to the emergency department. Discussed the plan with the patient, they demonstrate verbal understanding and agreement with our assessment and plan at this time. EKG 15: 58 Rate 66, intervals normal, sinus rhythm, RSR in V1, no significant ST elevations or depressions, single T wave inversion in V1. No Q waves. FINDINGS: Lungs: The lungs are hyperinflated, consistent with underlying small airways disease.There are no focal air space opacities. Pleural space: Unremarkable. No pleural effusion. No pneumothorax. Heart/Mediastinum: Unremarkable. No cardiomegaly. Upper abdomen: No evidence of free air beneath the diaphragm. Bones/joints: Unremarkable. IMPRESSION: No evidence of an acute pulmonary process. There has been no significant change in comparison to the prior examination. Dictated and Authenticated by: Val Bartholomew MD. Impressions: Normal perfusion by [id number]. Summary: 1. Myocardial perfusion imaging: No myocardial perfusion defects noted. 2. The calculated left ventricular ejection fraction after stress: 73%. 3. Stress: The target heart rate was achieved. HPI General Date/Time Provider Initiated Documentation: 10/19/18 15:05. HPI Narrative: This is a pleasant 63-year-old female who has had quite the multiple medical episodes as of late. Roughly 1 week ago she had episodes of notable nausea, vomiting, she was initially seen and assessed, and after relatively benign laboratory workup she tolerated p.o. and per request went home, however her symptoms returned, she returned to the hospital and was admitted for her nausea and vomiting, she also had an elevation in her troponin. She had a stress test here at the hospital, which was found to be normal, eventually discharged home. This was 3 days ago. Since then she is feeling better however today she did demonstrate a mild pain in her epigastric region, she has been eating the diet recommended to her at her discharge of a gentle GI diet. She did contact her primary care provider, who recommended that she come to the ER for further evaluation. He denies any vomiting, and states that she has been able to keep things down. She denies any significant diarrhea, chest pain, pleuritic chest pain, shortness of breath, arm, neck, or shoulder pain. She denies any hemoptysis, hematochezia, melena, acholic stool, numbness, tingling, weakness. She has no other complaints at this time. No other modifying factors. Related Data Home Medications Medication Instructions Recorded Confirmed aspirin [Aspir-81] 81 mg PO DAILY tab-cap 06/05/13 10/15/18 cholecalciferol (vit D3)(bulk) 100 gm MISCELLANEOUS DAILY 02/23/16 10/19/18 multivitamin 1 ea PO DAILY 02/23/16 10/19/18 docusate sodium [Colace] 100 mg PO DAILY PRN 11/24/16 10/19/18 fluoxetine 10 mg capsule 10 mg PO HS 05/29/18 10/19/18 buspirone 15 mg PO BID 10/15/18 10/19/18 simvastatin 40 mg PO HS 10/15/18 10/19/18 omeprazole 40 mg PO DAILY #30 cap 10/17/18 10/19/18 ondansetron 4 mg PO QID PRN #10 tab 10/17/18 10/19/18 trazodone 50 - 100 mg PO HS 10/19/18 10/19/18 Previous Rx's Medication Instructions Recorded omeprazole 40 mg PO DAILY #30 cap 10/17/18 ondansetron 4 mg PO QID PRN #10 tab 10/17/18 Allergies Allergy/AdvReac Type Severity Reaction Status Date / Time sertraline [From Zoloft] Allergy Intermediate shakes Verified 10/19/18 15:02 clonazepam AdvReac Intermediate Nausea Unverified 10/19/18 15:02 General Stated Complaint: Abd Prob ANNE MARIE: 3 Review of Systems Review of Systems All systems reviewed & are unremarkable except as noted in HPI and below PFSH Social History Smoking/Tobacco Use Status: Never Alcohol Intake: never Drug use: Daily Substance use type: marijuana Details: usually smokes marijuana every day, but hasn't been due to illness. although, she did try it to see if it would help with the nausea. Do you feel safe at home: Yes Do you feel safe in your relationship?: Yes History History Para 2 Hx # Term Pregnancies Multiple births Hx # Pregnancies Ectopic pregnancies AB induced Hx Number of Living Children AB spontaneous Exam Narrative Exam Narrative: 1.Const: Well-nourished, Well-developed, appearing stated age 2.Eyes: PERRL, no conjunctival injection, and symmetrical lids. 3.ENT: Atraumatic external nose and ears. Moist MM. Neck: Symmetric, trachea midline, No thyromegaly. 4.CVS: +S1/S2, No murmurs or gallops. Peripheral pulses 2+ and equal in all extremities. Brisk capillary refill in all extremities. 5.RESP: Unlabored respiratory effort. Clear to auscultation bilaterally. No wheezes rales or rhonchi 6.GI: Soft, Nontender/Nondistended, No hepatosplenomegaly. No guarding or rebound. Minimal epigastric tenderness on palpation. No pain at McBurney's point, negative Rawls sign. 7.MSK: Normocephalic/Atraumatic, Extremities w/o deformity or ttp No cyanosis or clubbing, Normal movement of all extremities 8.Skin: Warm, Dry. No rashes or lesions. 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 Sensation grossly intact, no focal neurologic deficits. 10.Psych: (AAO) x3. Appropriate mood and affect Course Vital Signs Temperature 36.5 C 10/19/18 14:58 Pulse 92 H 10/19/18 14:58 Respiratory Rate 16 10/19/18 14:58 Blood Pressure 124/77 10/19/18 14:58 Pulse Oximetry 98 10/19/18 14:58 Temperature 36.5 C 10/19/18 14:58 Temperature Source Skin 10/19/18 14:58 Pulse 59 L 10/19/18 16:46 Pulse 65 10/19/18 16:50 Respiratory Rate 16 10/19/18 16:50 Blood Pressure 138/83 10/19/18 16:46 Blood Pressure Mean 96 10/19/18 16:46 Blood Pressure Position Sitting 10/19/18 14:58 Pulse Oximetry 97 10/19/18 16:50 Oxygen Delivery Method Room Air 10/19/18 14:58 Oxygen Flow Rate 0 10/19/18 14:58 Pain Level 3 10/19/18 14:58 Lab/Test Results Lab/Test Results: Laboratory Tests Range/Units 10/19/18 10/19/18 16:15 16:15 WBC (4.4-10.8) k/cumm 9.80 RBC (4.00-5.20) m/cumm 4.20 Hgb (12.0-15.5) g/dL 12.4 Hct (36.0-46.0) % 36.4 MCV (80-95) fL 86.7 MCH (27.0-33.0) pg 29.5 MCHC (32.0-36.0) g/dL 34.1 RDW (11.7-14.6) % 13.4 Plt Count (130-400) x1000/uL 234 MPV (8.0-11.0) fL 9.2 Immature Gran % 0.4 Neutrophils % 61.7 Lymphocytes % 23.8 Monocytes % 12.4 Eosinophils % 1.5 Basophils % 0.2 Absolute Neutrophils (1.2-6.7) k/cumm 6.04 Absolute Lymphocytes (1.2-3.4) k/cumm 2.33 Absolute Monocytes (0.11-0.7) k/cumm 1.22 H Absolute Eosinophils (0.0-0.7) k/cumm 0.15 Absolute Basophils (0.0-0.2) k/cumm 0.02 Sodium (136-145) mmol/L 140 Potassium (3.5-5.1) mmol/L 3.5 Chloride (98-107) mmol/L 103 Carbon Dioxide (21.0-32.0) mmol/L 26.9 Anion Gap (3-11) mmol/L 10.1 BUN (7-18) mg/dL 14 Creatinine (0.55-1.02) mg/dL 1.03 H Estimated GFR/1.73 m2 (mL/min/1.73m2) 54.12 Glucose (70-100) mg/dL 98 Calcium (8.5-10.1) mg/dL 9.2 Total Bilirubin (0.2-1.0) mg/dL 0.4 AST (15-37) U/L 22 ALT (12-78) U/L 27 Alkaline Phosphatase (46-116) U/L 70 Troponin I (0.00-0.06) ng/mL 0.02 Total Protein (6.4-8.2) g/dL 6.8 Albumin (3.4-5.0) g/dL 3.3 L Lipase (73-393) U/L 603 H
== END 2018-10-19 18:19 | disposition home or self-care (01) ==
PROVIDERS: Emergency Provider Student in an Organized Health Care Education/Training Program; PCP Nurse Practitioner Family
DX: K85.90 Acute pancreatitis without necrosis or infection, unspecified (principal)
CPT/HCPCS: 36415; 80053; 83690; 93005; 96360; 99285; 71046; 84484; 85025; 93010

== ENCOUNTER 2018-10-23 02:02 | Outpatient (CLI) | payer BC, SELFPAY ==
[2018-10-23 09:57] LABS: Anion Gap 10.5 mmol/L (3-11); BUN 12 mg/dL (7-18); CO2 26.5 mmol/L (21.0-32.0); CREATININE 1.18 mg/dL (0.55-1.02); Calcium 9.2 mg/dL (8.5-10.1); Chloride 102 mmol/L (98-107); Estimated GFR 46.26 (mL/min/1.73m2); Glucose 107 mg/dL (70-100); Magnesium 1.8 mg/dL (1.8-2.4); Potassium 3.9 mmol/L (3.5-5.1); Sodium 139 mmol/L (136-145)
== END 2018-10-23 02:22 ==
PROVIDERS: PCP Nurse Practitioner Family; Visit Provider Nurse Practitioner
DX: E83.42 Hypomagnesemia (principal); E87.6 Hypokalemia
CPT/HCPCS: 36415; 80048; 83735

== ENCOUNTER 2018-10-24 10:27 | Outpatient (REF) | payer BC, SELFPAY ==
[2018-10-25 06:43] LABS: ALT 22 U/L (12-78); AST 13 U/L (15-37); Alkaline Phosphatase 92 U/L (46-116); Amylase 47 U/L (25-115); Bilirubin, Total 0.3 mg/dL (0.2-1.0); Lipase 337 U/L (73-393); Total Protein 7.4 g/dL (6.4-8.2)
== END 2018-10-24 10:47 ==
LOC: NCHCN 10:27
PROVIDERS: PCP Nurse Practitioner Family; Visit Provider Nurse Practitioner Family
DX: R10.13 Epigastric pain (principal); K21.9 Gastro-esophageal reflux disease without esophagitis; F41.8 Other specified anxiety disorders; Z87.19 Personal history of other diseases of the digestive system
CPT/HCPCS: 80076; 83690; 82150

== ENCOUNTER 2018-10-30 11:30 | Outpatient (CLI) | payer BC, SELFPAY ==
[2018-10-30 12:25] LABS: Anion Gap 8.8 mmol/L (3-11); BUN 12 mg/dL (7-18); CO2 26.2 mmol/L (21.0-32.0); CREATININE 0.94 mg/dL (0.55-1.02); Calcium 9.1 mg/dL (8.5-10.1); Chloride 105 mmol/L (98-107); Glucose 149 mg/dL (70-100); Magnesium 1.9 mg/dL (1.8-2.4); Potassium 3.6 mmol/L (3.5-5.1); Sodium 140 mmol/L (136-145)
[2018-10-30 12:28] LABS: Troponin I < 0.02 ng/mL (0.00-0.06)
== END 2018-10-30 11:50 ==
PROVIDERS: PCP Nurse Practitioner Family; Visit Provider Nurse Practitioner Family
DX: R10.13 Epigastric pain (principal)
CPT/HCPCS: 36415; 80048; 83735; 84484

== ENCOUNTER 2018-10-31 02:02 | Outpatient (CLI) | payer BC, SELFPAY ==
--- NOTE | 2018-10-31 16:23 | W.NUTCONSULT ---
Date of service: 10/31/18 Time of Service: 16:23 Nutritional Consult ASSESSMENT: Ms. James presents for nutritional counseling for nutrition therapy for pancreatitis as well as for fiber restriction as it was recommended by her health care provider. She reports that she has been eating minimally as she does not know what is ok to eat and what is not. She is 67 and 153 lbs. She has lost 10 lbs in the past month which is a 6% weight loss in one month. She does report that her weight has stabilized over the past week. Her BMI is 24 kg/m2 which is WNL.. NUTRITIONAL DIAGNOSIS: Significant unintentional weight loss related to inadequate intake of calories. Poor nutrition quality of life related to knowledge deficit with regard to what she is able to eat and what she is unable to eat. INTERVENTION: We discussed the two nutrition therapies and cross referenced them. From the cross reference, we came up with lists of foods and meals that Ms. James can have at breakfast, lunch, dinner and snacks. Ms. James verbalized some relief in having more of a selection to work with as well as having some meal ideas. Provided written materials. MONITORING AND EVALUATION: 1. Ms. James will follow up with me as needed. She will monitor her progress and most likely schedule a follow up with me after her EGD in November so we can focus on what her foods should look like specifically. 2. We will evaluate her nutrition care plan ongoing and adjust as needed. She has my contact information. Thank you for the consult. Time Spent in Nutritional Counseling and Treatment: 47 minutes face to face
== END 2018-10-31 02:22 ==
PROVIDERS: PCP Nurse Practitioner Family; Visit Provider Dietitian, Registered
DX: K85.90 Acute pancreatitis without necrosis or infection, unspecified (principal); Z71.3 Dietary counseling and surveillance
CPT/HCPCS: 97802

== ENCOUNTER 2018-11-07 00:28 | Outpatient (CLI) | payer BC, SELFPAY ==
--- NOTE | 2018-11-07 07:37 | DI.US_ITS ---
SYMPTOM/DIAGNOSIS: EPIGASTRIC PAIN, R10.13, H/O PANCREATITIS Z87.19 ABDOMINAL ULTRASOUND: The aorta and vena cava are intact. There is a question regarding a solid echogenic mass involving the dome of the liver which could measure up to 1.7 x 1.5 x 2.2 cm. This region appears avascular and heterogeneous. Gallbladder is normal. There are no stones or ductal dilatation. The pancreas and spleen are normal. The kidneys are normal. The right kidney measures 11 cm. The left kidney 11.7 cm. There is no evidence of abdominal free fluid. SUMMARY: Question solid echogenic mass in the hepatic dome measuring 1.7 x 1.5 x 2.2 cm Further assessment with a multiphasic abdominal CT examination is recommended.
== END 2018-11-07 00:48 ==
PROVIDERS: PCP Nurse Practitioner Family; Visit Provider Nurse Practitioner Family
DX: R10.13 Epigastric pain (principal); K76.89 Other specified diseases of liver; Z87.19 Personal history of other diseases of the digestive system
CPT/HCPCS: 76700

== ENCOUNTER 2018-12-21 01:35 | Outpatient (CLI) | payer BC, SELFPAY ==
[2018-12-21] MEDS: Omnipaque 350 MG/ML 50 ML BTL IJ (08:34)
[2018-12-21] MEDS: Breeza Beverage 473 ML BTL PO (08:36)
[2018-12-21] MEDS: Omnipaque 350 MG/ML 100 ML BTL IJ (09:28)
--- NOTE | 2018-12-21 09:30 | DI.CT_ITS ---
SYMPTOM/DIAGNOSIS: HEPATIC HEMANGIOMA, D18.[address]: The study was carried out according to the usual hemangioma protocol with an intravenous administration of 100 cc's of Omnipaque 350 and oral contrast. A small mass in the right hepatic dome is demonstrated measuring approximately 2 by 1.9 cm. and has imaging characteristics entirely consistent with a hemangioma. The liver is otherwise unremarkable. The gallbladder is normal. There are no stones or ductal dilatation. The pancreas is normal. The spleen, kidneys and adrenals are normal. There is no demonstrated bowel abnormality. There is no evidence of adenopathy. SUMMARY: Findings consistent with a right hepatic lobe hemangioma.
== END 2018-12-21 01:55 ==
PROVIDERS: PCP Nurse Practitioner Family; Visit Provider Nurse Practitioner Family
DX: D18.03 Hemangioma of intra-abdominal structures (principal); Z13.89 Encounter for screening for other disorder
CPT/HCPCS: 74160; 82565; J3490; Q9967

== ENCOUNTER 2019-01-11 00:45 | Outpatient (CLI) | payer BC, SELFPAY ==
[2019-01-11] MEDS: Barium Sulfate 60% W/V 355 ML BTL PO (09:10)
--- NOTE | 2019-01-11 09:11 | DI.RAD_ITS ---
SYMPTOM/DIAGNOSIS: R10.13 EPIGASTRIC PAIN BARIUM SWALLOW: Fluoroscopy Time: 1.00 The preliminary PA and lateral examination of the chest is unremarkable. A soft tissue lateral projection of the neck is also unremarkable. The patient swallowed barium without difficulty. No abnormality involving the oral hypopharynx is demonstrated. The esophagus is normal throughout. There is no evidence of an hiatus hernia. There is nothing to suggest gastroesophageal reflux. SUMMARY: Normal barium swallow.
== END 2019-01-11 01:05 ==
PROVIDERS: PCP Nurse Practitioner Family; Visit Provider Surgery
DX: R10.13 Epigastric pain (principal)
CPT/HCPCS: 74220; J3490

== ENCOUNTER 2019-03-13 00:29 | Outpatient (CLI) | payer BC, MEDICAID, SELFPAY ==
--- NOTE | 2019-03-13 07:50 | DI.MAMMO_ITS ---
SYMPTOM/DIAGNOSIS: SCREENING, Z12.31 MAMMOGRAM: 03/13 Mammograms were interpreted according to the usual protocol including computer analysis with CAD system, tomosynthesis and C view imaging. The breasts are of moderate density with fairly symmetrical distribution of fibroglandular tissue. No dominant mass or clumped microcalcification is identified in either breast. The current examination is compared with previous examinations including February 2018 and there has been no gross interval change in appearance in comparison with the previous studies. CONCLUSION: No specific evidence of malignancy at this time. Routine screening examinations are suggested at yearly intervals in this age group according to the ACS/ACR guidelines. Category 1, breast density category B. MQSA ASSESSMENT OF FINDINGS: Negative. Category 1. Patient will receive a letter notifying them of these results. BI-RADS category B. There are scattered areas of fibroglandular density.
== END 2019-03-13 00:49 ==
PROVIDERS: PCP Nurse Practitioner Family; Visit Provider Nurse Practitioner Family
DX: Z12.31 Encounter for screening mammogram for malignant neoplasm of breast (principal)
CPT/HCPCS: 77063; 77067

== ENCOUNTER 2019-05-15 08:44 | Emergency (ER) | payer BC, SELFPAY ==
[2019-05-15 08:49] VITALS: BP 133/63; PULSE 77; RESP 18; TEMP 37.2; O2SAT 100
--- NOTE | 2019-05-15 09:02 | W.ED.GENAD ---
Discharge Plan Disposition Patient Disposition: HOME Condition: Improving Discharge Details Chief Complaint: GenMedical Clinical Impression: Back pain Primary Care Provider: Tracie Murray ED Provider: Tracie Dsouza Home Meds and New Rx's Prescriptions: New tramadol [Ultram] 50 mg tablet 50 mg PO Q8H Qty: 2 RF: 0 No Action fluoxetine 10 mg capsule 10 mg PO HS RF: 0 aspirin [Aspir-81] 81 MG tablet,delayed release (DR/EC) 81 mg PO DAILY RF: 0 multivitamin 1 EACH capsule 1 ea PO DAILY RF: 0 cholecalciferol (vit D3)(bulk) 1,000 GM liquid 100 gm Miscellaneous DAILY RF: 0 omeprazole 40 mg capsule,delayed release(DR/EC) 20 mg PO DAILY RF: 0 docusate sodium [Colace] 100 MG capsule 100 mg PO DAILY PRNRF: 0 simvastatin 40 mg Tablet 40 mg PO HS RF: 0 buspirone 15 mg Tablet 15 mg PO BID RF: 0 trazodone 50 mg Tablet 50 - 100 mg PO HS RF: 0 Discharge Instructions Instructions: Back Pain (ED) Additional Instructions: Rest activities as tolerated. Avoid deep stretching and exertion until tolerable. Use Motrin or Tylenol [id number] as discussed. Consider lidocaine patches 4% [id number] applied to the area of your back pain for 12 hours then remove for 12 hours before reapplying next patch. Follow-up with your primary care doctor in the next 1 to 2 days. Small hemangioma incidentally noted on your liver this should be followed up with your primary care doctor but is not alarming. Your lab tests as well as CAT scan are quite reassuring today. For any alarming symptoms, ill feeling, increase in abdominal pain or back pain or for worsening symptoms have reevaluation sooner if needed as discussed Medical Decision Making This is a very pleasant 63-year-old patient who presents for back pain with radiation into her lower abdomen. Patient reports onset of back pain primarily yesterday noted onset of mild lower abdominal pain which is bilateral and lower worsening since yesterday. Patient reports she tried to work out in the pool which she typically does which worsened her pain. Patient denies radiation of back pain into her legs. Patient does report a history of back pain intermittently in the back pain initially did feel similar to that but is concerned with the abdominal pain associated. Patient reports nausea yesterday. Patient reports she has had no difficulty eating or drinking. She did eat breakfast normally, has a maintained appetite no associated fevers or chills. Moving bowels normally as well as no change in urination. Specifically denies dysuria or urinary symptoms. Patient is well-appearing in general at this time. Has been drinking without difficulty. Patient denies any specific injury or trauma to her back prior to onset of her pain yesterday. Patient does report known lower back issues for which she has previously undergone physical therapy but none recently. On exam patient has mild lower abdominal pain with palpation without obvious peritoneal signs, rebound or guarding. Bowel sounds present in all 4 quadrants. No abdominal distention. No palpable spinal tenderness noted on exam. Patient does have pain with straight leg raise bilaterally but no signs of neurosurgical emergency at this time. Labs ordered as well as CT and urinalysis. Patient given morphine 2 mg in conjunction with Zofran which did improve her pain. Patient CT very reassuring. No evidence of intra-abdominal acute causes of pain. Patient has an incidental hemangioma. Patient's labs are extremely reassuring also. Urinalysis normal. Urine culture pending. Patient on reevaluation does report improvement of her lower abdominal pain. Discussed close follow-up. Patient reports back pain persists. Patient does report back pain is similar in character to previous incidences of back pain she is experienced. Possibly abdominal pain is secondary to radiating pain from her back. I will give patient a few tablets of pain medication for evening pain control however I have encouraged close follow-up with her primary care doctor. Patient agrees with plan of care. Feels comfortable with discharge and close follow-up and observation at home. I agree with this given the patient is not ill appearing at this time and her evaluation in the emergency room is reassuring. The patient was stable and requested discharge. Prior to discharge, my usual and customary return precautions were reviewed with the patient - this included follow-up instructions and reasons to return to the Emergency Department if conditions worsens, does not improve as expected, or other new concerns arise. HPI General Date/Time Provider Initiated Documentation: 05/15/19 08:46. HPI Narrative: This is a very pleasant 63-year-old woman who presents to the emergency room for escalation of back and lower abdominal pain which began yesterday. Patient reports pain worsening since onset yesterday. Patient reports when driving to the emergency room down bumpy roads she had significant pain in her back and abdomen when hitting bumps. Patient reports mild associated nausea but has been able to maintain eating and drinking without difficulty. Is urinating without any associated dysuria, urgency or frequency. No significant change in bowel movements. Patient reports lower back pain bilaterally which radiates through to her anterior abdomen. Patient reports lower abdominal pain, worse with range of motion. No significant relief with attempted Motrin and Tylenol at home. No fevers or chills. Mild cough recently without associated difficulty breathing shortness of breath or wheezing. No associated chest pain. History of reflux. History of appendectomy, history of endometriosis, no postmenopausal and denies any endometrial pain in years. Denies vaginal discharge or bleeding. Related Data Home Medications Medication Instructions Recorded Confirmed aspirin [Aspir-81] 81 mg PO DAILY tab-cap 06/05/13 05/15/19 cholecalciferol (vit D3)(bulk) 100 gm MISCELLANEOUS DAILY 02/23/16 05/15/19 multivitamin 1 ea PO DAILY 02/23/16 10/19/18 docusate sodium [Colace] 100 mg PO DAILY PRN 11/24/16 05/15/19 fluoxetine 10 mg capsule 10 mg PO HS 05/29/18 05/15/19 buspirone 15 mg PO BID 10/15/18 05/15/19 simvastatin 40 mg PO HS 10/15/18 05/15/19 trazodone 50 - 100 mg PO HS 10/19/18 05/15/19 omeprazole 20 mg PO DAILY 05/15/19 05/15/19 tramadol [Ultram] 50 mg PO Q8H #2 tab 05/15/19 Previous Rx's Medication Instructions Recorded tramadol [Ultram] 50 mg PO Q8H #2 tab 05/15/19 Allergies Allergy/AdvReac Type Severity Reaction Status Date / Time sertraline [From Zoloft] Allergy Intermediate shakes Verified 05/15/19 09:04 clonazepam AdvReac Intermediate Nausea Unverified 05/15/19 09:04 General ANNE MARIE: 3 Review of Systems Review of Systems ROS Unobtainable: All systems reviewed & are unremarkable except as noted in HPI and below Constitutional Constitutional: Denies chills, Denies fever(s), Denies headache(s) and Denies malaise ENT Ears, Nose, Mouth, and Throat: Denies dysphagia and Denies headache(s) Gastrointestinal Gastrointestinal: Reports abdominal pain, Denies belching, Denies bloating, Denies dysphagia, Reports heartburn, Denies diarrhea, Reports nausea and Denies vomiting Genitourinary Genitourinary: Denies urinary frequency, Denies dysuria and Denies urinary urgency Neurologic Neurologic: Denies headache(s) REPLACED BY [facility] Medical History Abdominal pain Anxiety Arthralgia Chest heaviness Constipation Cough Depression Dyspnea GERD (gastroesophageal reflux disease) H. pylori infection (Resolved) Hypercholesteremia Insomnia Menopause Overweight Thoracic spine pain Surgical History Appendectomy (11/25/16) EGD - IV Sedation (02/23/16) Dr Maryellen Swann, repeat 10 yrs H/O colonoscopy (Resolved 06/23/18) dr owusu, no abnormalities, repeat 10 years Social History Smoking/Tobacco Use Status: Never Alcohol Intake: never Drug use: Daily Substance use type: marijuana Details: usually smokes marijuana every day, but hasn't been due to illness. although, she did try it to see if it would help with the nausea. Do you feel safe at home: Yes Do you feel safe in your relationship?: Yes History History Para 2 Hx # Term Pregnancies Multiple births Hx # Pregnancies Ectopic pregnancies AB induced Hx Number of Living Children AB spontaneous Exam Narrative Exam Narrative: CONST: Healthy appearing patient, in no acute distress. Well hydrated. Alert and alert. HENMT: Head nomocephalic, normal to inspection. Atraumatic. Hearing grossly normal. EYES: General normal appearance. Alignment normal. Eyelids normal. Conjunctiva normal. NECK: Normal visual inspection. FROM. Trachea midline. No Midline tenderness. CHEST: Normal insepection of the chest. RESP: Normal respiratory effort. Speaking full sentences. No cough. No audible wheezing. No retractions. Breath sounds equal and full bilaterally. No wheezing, rales or rhonchi CARDIO: No JVD. No murmurs, rubs or gallops. Regular rate and rhythm Abdomen; bowel sounds present in all 4 quadrants, soft, no rebound, guarding or peritoneal signs on exam. Mild lower abdominal pain with palpation. No palpable masses MUSCULOSKELETAL: Normal Gait. FROM of all extremities. SKIN: Normal. Dry. No rashes. NEURO: Alert and awake. Speech clear. PSYCH: Normal affect. Cooperative.
[2019-05-15 09:22] LABS: Abs Immature Grans 0.02 k/cumm (0.0-0.09); Absolute Basophil Count 0.02 k/cumm (0.0-0.2); Absolute Eosinophil Count 0.07 k/cumm (0.0-0.7); Absolute Lymphocyte Count 1.63 k/cumm (1.2-3.4); Absolute Monocyte Count 0.57 k/cumm (0.11-0.7); Absolute Neutrophil Count 4.92 k/cumm (1.2-6.7); Basophils % 0.3; HCT 39.4 % (36.0-46.0); HGB 13.5 g/dL (12.0-15.5); Immature Grans % 0.3; Lymphocytes % 22.5; Mean Corp. HGB Concentration 34.3 g/dL (32.0-36.0); Mean Corpuscular Hemoglobin 30.6 pg (27.0-33.0); Mean Corpuscular Volume 89.3 fL (80-95); Mean Platelet Volume 9.7 fL (8.0-11.0); Monocytes % 7.9; Platelet Count 212 x1000/uL (130-400); RBC 4.41 m/cumm (4.00-5.20); RBC Distribution Width 12.9 % (11.7-14.6); White Blood Cell Count 7.23 k/cumm (4.4-10.8)
[2019-05-15] MEDS: Normal Saline 1,000 ML 1000 ML IV (09:22)
[2019-05-15 09:23] LABS: Bilirubin Negative (Negative); Blood Negative (Negative); Clarity Clear (Clear); Glucose Negative (Negative); Ketones Negative (Negative); Leukocyte Esterase Negative (Negative); Nitrite Negative (Negative); Urobilinogen 0.2 EU/dL (Up TO 0.2)
[2019-05-15 09:35] LABS: ALT 21 U/L (14-59); AST 19 U/L (15-37); Albumin 3.5 g/dL (3.4-5.0); Alkaline Phosphatase 91 U/L (46-116); Anion Gap 8.5 mmol/L (3-11); BUN 20 mg/dL (7-18); Bilirubin, Total 0.2 mg/dL (0.2-1.0); CO2 27.5 mmol/L (21.0-32.0); CREATININE 1.04 mg/dL (0.55-1.02); Calcium 9.2 mg/dL (8.5-10.1); Chloride 103 mmol/L (98-107); Estimated GFR 53.52 (mL/min/1.73m2); Glucose 84 mg/dL (70-100); Potassium 4.5 mmol/L (3.5-5.1); Sodium 139 mmol/L (136-145); Total Protein 7.2 g/dL (6.4-8.2)
[2019-05-15 09:43] LABS: Lipase 243 U/L (73-393)
[2019-05-15] MEDS: Omnipaque 350 MG/ML 100 ML BTL IJ (10:25)
--- NOTE | 2019-05-15 10:26 | DI.CT_ITS ---
EXAM: CT ABDOMEN PELVIS W CLINICAL HISTORY: bilateral lower abd and back pain worsening TECHNIQUE: After IV and without oral contrast. COMPARISON: CT ABDOMEN W from 12/21/2018 FINDINGS: A hemangioma is again noted in the superior aspect of the liver. The gallbladder, spleen, pancreas, a drenals and kidneys are unremarkable. There is no bowel dilatation or inflammatory change. Surgical c lips are seen at the base of the cecum. There is no free air or free fluid. The bladder, uterus and o varies are unremarkable. The aorta is normal in diameter. There are minimal degenerative changes in t he lower thoracic and lumbar spine. There is no gross evidence of disc herniation. IMPRESSION: No acute abnormality.
[2019-05-15 10:38] VITALS: BP 139/82; PULSE 73; RESP 17; O2SAT 97
== END 2019-05-15 11:35 | disposition home or self-care (01) ==
PROVIDERS: Emergency Provider Physician Assistant; PCP Nurse Practitioner Family
DX: M54.9 Dorsalgia, unspecified (principal); R10.30 Lower abdominal pain, unspecified
CPT/HCPCS: 36415; 80053; 83690; 96361; 96374; 96375; 99285; 74177; 81003; 85025; 87086; 99284; J3490

== ENCOUNTER 2019-06-11 01:21 | Outpatient (CLI) | payer BC, SELFPAY ==
--- NOTE | 2019-06-11 08:00 | DI.US_ITS ---
EXAM: US ABD PELV TRANSVAG NON-OB CLINICAL HISTORY: ABD PAIN,R10.9, RLQ PAIN,R10.31 TECHNIQUE: Ultrasound performed using standard protocol. COMPARISON: CT ABDOMEN PELVIS W from 05/15/2019 FINDINGS: ABDOMEN: Liver is normal in size and echogenicity. No focal liver lesions are seen. The gallbladde r is unremarkable, without evidence of stones or wall thickening. The spleen, kidneys, pancreas and aorta appear normal. No ascites is seen. PELVIC: Transabdominal and transvaginal exams were performed. The uterus is retroverted and measures 6.3 x 3.4 x 4.5 cm. The endometrial stripe appears thickened and heterogeneous measuring 11 mm in thi ckness. The ovaries are normal in size and appearance. No cysts or masses are seen. There is no free fluid. IMPRESSION: Negative abdomen ultrasound. Thickened heterogeneous endometrium measuring 11 mm.
== END 2019-06-11 01:41 ==
PROVIDERS: PCP Nurse Practitioner Family; Visit Provider Nurse Practitioner Family
DX: R10.31 Right lower quadrant pain (principal); R93.89 Abnormal findings on diagnostic imaging of other specified body structures
CPT/HCPCS: 76700; 76830; 76856

== ENCOUNTER 2019-09-06 09:54 | Outpatient (REF) | payer BC, SELFPAY ==
[2019-09-06 13:05] LABS: ALT 20 U/L (14-59); AST 16 U/L (15-37); Albumin 3.7 g/dL (3.4-5.0); Alkaline Phosphatase 92 U/L (46-116); Anion Gap 7.5 mmol/L (3-11); BUN 18 mg/dL (7-18); Bilirubin, Total 0.3 mg/dL (0.2-1.0); CO2 30.5 mmol/L (21.0-32.0); CREATININE 0.88 mg/dL (0.55-1.02); Calcium 9.2 mg/dL (8.5-10.1); Chloride 103 mmol/L (98-107); Glucose 90 mg/dL (74-106); Magnesium 1.8 mg/dL (1.8-2.4); Potassium 4.3 mmol/L (3.5-5.1); Sodium 141 mmol/L (136-145); Total Protein 6.9 g/dL (6.4-8.2); Vitamin B12 1033 pg/mL (193-986)
== END 2019-09-06 10:14 ==
LOC: NCHCN 09:54
PROVIDERS: PCP Nurse Practitioner Family; Visit Provider Nurse Practitioner Family
DX: E83.42 Hypomagnesemia (principal); E78.00 Pure hypercholesterolemia, unspecified; F41.8 Other specified anxiety disorders; K21.9 Gastro-esophageal reflux disease without esophagitis; R05 Cough; J30.9 Allergic rhinitis, unspecified; R25.1 Tremor, unspecified; M54.5 Low back pain
CPT/HCPCS: 80053; 82607; 83735

== ENCOUNTER 2019-12-11 09:02 | Outpatient (CLI) | payer BC, SELFPAY ==
--- NOTE | 2019-12-11 10:27 | DI.RAD_ITS ---
EXAM: XR FOOT RT COMPLETE CLINICAL HISTORY: RTFOOT PAIN, M79.671. TECHNIQUE: 2D digital imaging was performed. COMPARISON: No exams were available for comparison FINDINGS: BONES: No acute fracture is present. Mild spurring is seen at the 1st metatarsophalangeal joint and t he talonavicular joint. There is a small spur at the plantar surface of the calcaneus. JOINTS: No dislocation present. SOFT TISSUE: Calcification of the Achilles tendon is noted. This may be due to prior injury. IMPRESSION: No acute abnormality. Mild degenerative changes of the right foot. DATA REPOSITORY: RADIATION DOSE DELIVERED:
--- NOTE | 2019-12-11 10:28 | DI.RAD_ITS ---
EXAM: XR ANKLE RT COMPLETE CLINICAL HISTORY: RT FOOT AND ANKLE PAIN, M79.671. TECHNIQUE: 2D digital imaging was performed. COMPARISON: No exams were available for comparison FINDINGS: BONES: No acute fracture or dislocation. Calcification is seen of the Achilles tendon which may refl ect prior injury. A small spur at the plantar surface of the calcaneus. JOINTS: The ankle mortise is normally aligned. SOFT TISSUE: Normal. IMPRESSION: No acute abnormality. DATA REPOSITORY: RADIATION DOSE DELIVERED:
== END 2019-12-11 09:22 ==
PROVIDERS: PCP Nurse Practitioner Family; Visit Provider Nurse Practitioner Family
DX: M79.671 Pain in right foot (principal); M25.571 Pain in right ankle and joints of right foot; M77.31 Calcaneal spur, right foot
CPT/HCPCS: 73610; 73630

== ENCOUNTER 2020-02-12 09:21 | Outpatient (REF) | payer BC, SELFPAY ==
--- NOTE | 2020-02-12 09:00 | SKI_PTH ---
PATIENT: Leona James LOC: [facility] U#:[id number] AGE/SX: 64/F ROOM: RE02/12/[address]: Alejandro Broussard : 1955 BED: DIS: 02/12/2020 SPEC #: [id number] RECD: 02/13/20 12:37 STATUS: JONNY REDemetrius #: [id number] TYE: 02/12/20 09:[address]: Tracie Murray DEPT: Surgical Specimen RECD BY: Estrellita Squires Tissues: 1 - SKIN BIOPSY(SHAVE/PUNCH) Procedures: SKIN LEVEL 4 Comments: [id number]
== END 2020-02-12 09:41 ==
LOC: NCHCN 09:21
PROVIDERS: PCP Nurse Practitioner Family; Visit Provider Physician Assistant
DX: D22.5 Melanocytic nevi of trunk (principal)
CPT/HCPCS: 88305

== ENCOUNTER 2020-03-14 12:02 | Outpatient (REF) | payer BC, SELFPAY ==
--- NOTE | 2020-03-14 08:45 | PAPFT_PTH ---
PATIENT: Leona James LOC: [facility]#:[id number] AGE/SX: 64/F ROOM: RE03/14/[address]: Tracie Murray : 1955 BED: DIS: 03/14/2020 SPEC #: [id number] RECD: 03/17/20 13:08 STATUS: JONNY REDemetrius #: [id number] TYE: 03/14/20 08:[address]: Tracie Murray [facility] Cytology RECD BY: Estrellita Squires Tissues: 1 - CX/ENDOCX FOR PAP SMEARS Procedures: PAP THIN PREP/UVM Screening Comments: [id number] (UNSATISFACTORY FOR EVALUATION)
== END 2020-03-14 12:22 ==
LOC: NCHCN 12:02
PROVIDERS: PCP Nurse Practitioner Family; Visit Provider Nurse Practitioner Family
DX: Z12.4 Encounter for screening for malignant neoplasm of cervix (principal); R87.615 Unsatisfactory cytologic smear of cervix
CPT/HCPCS: 88142

== ENCOUNTER 2020-04-01 03:39 | Outpatient (CLI) | payer BC, SELFPAY ==
--- NOTE | 2020-04-01 11:49 | DI.MAMMO_ITS ---
EXAM: MAMMO SCREENING CLINICAL HISTORY: SCREENING, Z12.31 TECHNIQUE: Mammograms were interpreted according to the usual protocol including computer analysis w Ecorithm CAD system, tomosynthesis and C-view imaging. COMPARISON: 2010 through 2018 FINDINGS: The breasts are composed of scattered fibroglandular densities, Breast Density category B. No suspicious masses or suspicious microcalcifications are seen. No skin thickening or abnormal axillary lymph nodes are seen. There has been no significant change from prior exams. IMPRESSION: BI-RADS Category 1, Negative mammogram Yearly screening mammography is recommended. Breast Density - Category B, scattered fibroglandular densities. A negative radiographic report should not delay biopsy if a dominant or clinically suspicious mass is present. Up to ten percent of cancers are not identified on mammography. A negative report may reinforce clinical impression. Adenosis and dense breasts may obscure an underlying neoplasm. False positive reports average 6 to 10%. Patient will receive a letter notifying them of these results.
== END 2020-04-01 03:59 ==
PROVIDERS: PCP Nurse Practitioner Family; Visit Provider Nurse Practitioner Family
DX: Z12.31 Encounter for screening mammogram for malignant neoplasm of breast (principal); R92.2 Inconclusive mammogram
CPT/HCPCS: 77063; 77067

== ENCOUNTER 2020-04-04 17:12 | Outpatient (REF) | payer BC, SELFPAY ==
[2020-04-04 19:32] LABS: Abs Immature Grans 0.02 10^3/uL (0.0-0.06); Absolute Basophil Count 0.03 10^3/uL (0.0-0.2); Absolute Eosinophil Count 0.15 10^3/uL (0.0-0.7); Absolute Lymphocyte Count 2.51 10^3/uL (1.2-3.4); Absolute Monocyte Count 0.83 10^3/uL (0.1-0.8); Absolute Neutrophil Count 4.48 10^3/uL (1.2-6.7); Basophils % 0.4; Eosinophils % 1.9; HCT 40.5 % (36.0-46.0); HGB 13.7 g/dL (11.2-15.7); Immature Grans % 0.2; Lymphocytes % 31.3; MCH 29.8 pg (27.0-33.0); MCHC 33.8 % (32.0-36.0); MCV 88.2 fL (80-95); MPV 10.9 fL (8.0-11.0); Monocytes % 10.3; Neutrophils % 55.9; Nucleated RBC 0 %; Platelet Count 239 10^3/uL (130-400); RBC 4.59 10^6/uL (3.93-5.22); RDW 12.7 % (11.7-14.6); WBC 8.02 10^3/uL (4.4-10.8)
[2020-04-04 19:56] LABS: ALT 21 U/L (14-59); AST 16 U/L (15-37); Albumin 3.8 g/dL (3.4-5.0); Alkaline Phosphatase 106 U/L (46-116); Anion Gap 7.7 mmol/L (3-11); BUN 18 mg/dL (7-18); Bilirubin, Total 0.2 mg/dL (0.2-1.0); CO2 27.3 mmol/L (21.0-32.0); CREATININE 1.07 mg/dL (0.55-1.02); Calcium 9.4 mg/dL (8.5-10.1); Chloride 104 mmol/L (98-107); Estimated GFR 51.63 (mL/min/1.73m2); Glucose 99 mg/dL (74-106); Lipase 234 U/L (73-393); Potassium 4.4 mmol/L (3.5-5.1); Sodium 139 mmol/L (136-145)
== END 2020-04-04 17:32 ==
LOC: NCHCN 17:12
PROVIDERS: PCP Nurse Practitioner Family; Visit Provider Internal Medicine
DX: R10.31 Right lower quadrant pain (principal)
CPT/HCPCS: 80053; 83690; 85025

== ENCOUNTER 2020-05-30 06:01 | Emergency (ER) | payer BC, SELFPAY ==
--- NOTE | 2020-05-30 06:00 | RT.EKG_ITS ---
APPROVED REPORT Exam: Resting ECG Patient Location: E HR:72 bpm ECG Measurements Heart Rate 72 AXIS IL 178 P 48 QRSd 91 QRS -16 QT 396 T 75 QTc 434 Conclusion Sinus rhythm...normal P axis, V-rate 60- 99
[2020-05-30 06:05] VITALS: BP 176/76; PULSE 81; RESP 20; TEMP 36.9; O2SAT 97
--- NOTE | 2020-05-30 06:11 | ED.GENADUL_ITS ---
Discharge Plan Disposition Patient Disposition: HOME Condition: Stable Discharge Details Clinical Impression: Dizziness, Vertigo Primary Care Provider: Tracie Murray ED Provider: Adarsh Tyler Home Meds and New Rx's Prescriptions: New meclizine 25 mg tablet 25 mg PO TID PRN (Reason: dizziness) Qty: 30 RF: 0 Continued Saccharomyces boulardii [Daily Probiotic (S. boulardii)] 250 mg capsule 250 mg PO BID RF: 0 aspirin [Aspir-81] 81 MG tablet,delayed release (DR/EC) 81 mg PO DAILY RF: 0 cholecalciferol (vit D3)(bulk) 1,000 GM liquid 100 gm Miscellaneous DAILY RF: 0 omeprazole 40 mg capsule,delayed release(DR/EC) 20 mg PO DAILY RF: 0 docusate sodium [Colace] 100 MG capsule 100 mg PO BID RF: 0 simvastatin 40 mg Tablet 40 mg PO HS RF: 0 buspirone 15 mg Tablet 15 mg PO BID RF: 0 trazodone 50 mg Tablet 50 - 100 mg PO HS RF: 0 ascorbic acid (vitamin C) [Vitamin C] 1,000 mg Tablet 1 g PO DAILY RF: 0 Discharge Instructions Instructions: Vertigo (ED) Additional Instructions: follow up with your primary care provider within a week especially if symptoms continue if you feel more ill, chest pain, or weakness on one side of the body return to the emergency department Medical Decision Making 64 yo female with hx of hld, gerd, anxiety, who comes in with chief complaint of feeling dizziness intermittently since Tuesday especially with head movements. She states this morning she stood up and felt the room spinning and lowered herself to the ground, denies loc or hitting head. Feels better now but when she turns her head still feels undsteady. Denies chest pain, fevers, headache, abdominal pain. Is walking under her own power. Has clear speech, no focal motor or sensation deficits. Has horizontal nystagmus in both eyes when looking to the left, no rotary or verticl nystagmus and reassuring hints exam. Suspect peripheral vertigo, will administer meclizine and evaluate for anemia and electrolyte abnormalities. pt feels improved and is ambulating with a steady gait unassisted. She has no significant lab abnormalities and still has reassuring hints exam and no headache or chest pain. Suspect bppv. Will tx with prn meclizine. Advised to f/u with pcp and return precautions given Differential Diagnosis Differential Diagnosis: bppv, peripheral vertigo, anemia Medical Records Medical records reviewed: Yes I reviewed the patient's medical records. Lab Data Lab results reviewed: Yes I reviewed the patient's lab results. ECG Data Attestation: I personally reviewed and interpreted this ECG (s) as follows: Prior ECG tracings: not available for review Interpretation: sinus rhythm, rate of 72, pr 178, qtc 434 HPI General Mode of arrival: ambulatory . Date/Time Provider Initiated Documentation: 05/30/20 06:02 . Limitations to Documentation: no limitations . Information obtained by: patient . History of Present Illness 64 year old F presents to the emergency department with the chief complaint of dizziness, described as moderate, Patient started experiencing this day(s) (2) and it has been intermittent. Movement worsens symptoms . Patient did receive the following treatments prior to arrival, none Related Data Home Medications Medication Instructions Recorded Confirmed aspirin [Aspir-81] 81 mg PO DAILY tab-cap 06/05/13 05/30/20 cholecalciferol (vit D3)(bulk) 100 gm MISCELLANEOUS DAILY 02/23/16 05/30/20 docusate sodium [Colace] 100 mg PO BID 11/24/16 05/30/20 buspirone 15 mg PO BID 10/15/18 05/30/20 simvastatin 40 mg PO HS 10/15/18 05/30/20 trazodone 50 - 100 mg PO HS 10/19/18 05/30/20 omeprazole 20 mg PO DAILY 05/15/19 05/30/20 Saccharomyces boulardii 250 mg 250 mg PO BID 07/02/19 05/30/20 capsule ascorbic acid (vitamin C) [Vitamin 1 g PO DAILY 05/30/20 05/30/20 C] meclizine 25 mg PO TID PRN #30 tab 05/30/20 Previous Rx's Medication Instructions Recorded meclizine 25 mg PO TID PRN #30 tab 05/30/20 Allergies Allergy/AdvReac Type Severity Reaction Status Date / Time sertraline [From Zoloft] Allergy Intermediate shakes Verified 05/30/20 06:11 clonazepam AdvReac Intermediate Nausea Unverified 05/30/20 06:11 General Stated Complaint: Dizzy/Sync ANNE MARIE: 3 Review of Systems All systems reviewed & are unremarkable except as noted in HPI and below Constitutional Constitutional: Denies chills, Denies fever(s) and Denies weakness Cardiovascular Cardiovascular: Denies chest pain and Denies dyspnea Respiratory Respiratory: Denies cough and Denies dyspnea Gastrointestinal Gastrointestinal: Denies abdominal pain, Denies nausea and Denies vomiting Musculoskeletal Musculoskeletal: Denies joint swelling Neurologic Neurologic: Denies weakness Psychiatric Psychiatric: Denies depression [facility] Medical History (Updated 05/30/20 @ 06:38 by Adarsh Tyler MD) Abdominal pain Anxiety Arthralgia Chest heaviness Constipation Cough Depression Dyspnea Endometrial stripe increased GERD (gastroesophageal reflux disease) H. pylori infection Hypercholesteremia Insomnia Menopause Overweight Thoracic spine pain Surgical History Appendectomy (11/25/16) EGD - IV Sedation (02/23/16) Dr Maryellen Swann, repeat 10 yrs H/O colonoscopy (06/23/18) dr owusu, no abnormalities, repeat 10 years Family History Other Esophageal cancer Heart disease Stroke Social History (Updated 07/29/19 @ 19:22 by Echo Cardoso MD) Smoking/Tobacco Use Status: Never Smoking risk assessment performed?: Yes Alcohol Intake: never Drug use: Daily Substance use type: marijuana Details: usually smokes marijuana every day, but hasn't been due to illness. although, she did try it to see if it would help with the nausea. Household members: other Details: Number of Children: 3 current occupation: Retired. Do you feel safe at home: Yes Do you feel safe in your relationship?: Yes History History 3 Para 2 Hx # Term Pregnancies 3 Multiple births Hx # Pregnancies Ectopic pregnancies AB induced Hx Number of Living Children AB spontaneous Exam Const General: anxious Orientation: alert HENMT Head: normal to inspection Ears: external ears normal General nose exam: external nose normal Mouth: moist mucous membranes Eyes General: appearance normal, both eyes and all related structures Neck Neck: normal visual inspection Resp Effort & Inspection: normal respiratory effort and able to speak in complete sentences Cardio Rate: regular rate Skin General skin exam: no rashes or lesions noted Neuro General: patient alert and patient oriented x3 Extrem General: normal to inspection Psych Mental Status: mental status grossly normal Course Vital Signs Vital signs: Vital Signs Temperature 36.9 C 05/30/20 06:05 Pulse 81 05/30/20 06:05 Respiratory Rate 20 05/30/20 06:05 Blood Pressure 176/76 H 05/30/20 06:05 Pulse Oximetry 97 05/30/20 06:05 Temperature 36.9 C 05/30/20 06:05 Temperature Source Skin 05/30/20 06:05 Pulse 81 05/30/20 06:05 Respiratory Rate 20 05/30/20 06:05 Blood Pressure 176/76 H 05/30/20 06:05 Blood Pressure Position Sitting 05/30/20 06:05 Pulse Oximetry 97 05/30/20 06:05 Oxygen Delivery Method Room Air 05/30/20 06:05 Oxygen Flow Rate 0 05/30/20 06:05 Pain Level 0 05/30/20 06:05
[2020-05-30 06:14] VITALS: RESP 16
[2020-05-30] MEDS: Meclizine 25 MG TAB PO (06:23)
[2020-05-30 06:40] LABS: Abs Immature Grans 0.03 10^3/uL (0.0-0.06); Absolute Basophil Count 0.03 10^3/uL (0.0-0.2); Absolute Eosinophil Count 0.04 10^3/uL (0.0-0.7); Absolute Lymphocyte Count 1.46 10^3/uL (1.2-3.4); Absolute Monocyte Count 0.66 10^3/uL (0.1-0.8); Absolute Neutrophil Count 4.72 10^3/uL (1.2-6.7); Basophils % 0.4; Eosinophils % 0.6; HGB 14.1 g/dL (11.2-15.7); Immature Grans % 0.4; MCH 29.7 pg (27.0-33.0); MCHC 34.4 % (32.0-36.0); MCV 86.5 fL (80-95); MPV 9.8 fL (8.0-11.0); Monocytes % 9.5; Neutrophils % 68.1; Nucleated RBC 0 %; Platelet Count 210 10^3/uL (130-400); RBC 4.74 10^6/uL (3.93-5.22); RDW 12.3 % (11.7-14.6); RDW-SD 39.1 fL; WBC 6.94 10^3/uL (4.4-10.8)
[2020-05-30 07:03] LABS: ALT 17 U/L (14-59); AST 13 U/L (15-37); Albumin 3.7 g/dL (3.4-5.0); Alkaline Phosphatase 109 U/L (46-116); Anion Gap 11.9 mmol/L (3-11); BUN 14 mg/dL (7-18); Bilirubin, Total 0.3 mg/dL (0.2-1.0); CO2 26.1 mmol/L (21.0-32.0); CREATININE 1.07 mg/dL (0.55-1.02); Calcium 9.3 mg/dL (8.5-10.1); Chloride 101 mmol/L (98-107); Estimated GFR 51.63 (mL/min/1.73m2); Glucose 111 mg/dL (74-106); Magnesium 1.6 mg/dL (1.8-2.4); Potassium 3.6 mmol/L (3.5-5.1); Sodium 139 mmol/L (136-145); Total Protein 7.4 g/dL (6.4-8.2)
[2020-05-30 07:13] LABS: Troponin I < 0.05 ng/mL (<0.06)
== END 2020-05-30 07:46 | disposition home or self-care (01) ==
LOC: ER 06:45
PROVIDERS: Emergency Provider Emergency Medicine; PCP Nurse Practitioner Family
DX: R42 Dizziness and giddiness (principal)
CPT/HCPCS: 36415; 80053; 93005; 99284; 83735; 84484; 85025; 93010; 99285

== ENCOUNTER 2020-08-08 16:58 | Outpatient (REF) | payer MEDICARE, OTHER, SELFPAY ==
[2020-08-08 21:16] LABS: Abs Immature Grans 0.02 10^3/uL (0.0-0.06); Absolute Basophil Count 0.04 10^3/uL (0.0-0.2); Absolute Eosinophil Count 0.18 10^3/uL (0.0-0.7); Absolute Lymphocyte Count 2.89 10^3/uL (1.2-3.4); Absolute Monocyte Count 0.86 10^3/uL (0.1-0.8); Absolute Neutrophil Count 3.96 10^3/uL (1.2-6.7); Basophils % 0.5; Eosinophils % 2.3; HGB 13.7 g/dL (11.2-15.7); Immature Grans % 0.3; Lymphocytes % 36.4; MCH 29.7 pg (27.0-33.0); MCHC 33.4 % (32.0-36.0); MCV 88.7 fL (80-95); MPV 10.3 fL (8.0-11.0); Monocytes % 10.8; Neutrophils % 49.7; Nucleated RBC 0 %; Platelet Count 223 10^3/uL (130-400); RBC 4.62 10^6/uL (3.93-5.22); RDW 12.6 % (11.7-14.6); RDW-SD 40.7 fL; WBC 7.95 10^3/uL (4.4-10.8)
[2020-08-08 21:29] LABS: ALT 25 U/L (14-59); AST 16 U/L (15-37); Albumin 3.9 g/dL (3.4-5.0); Alkaline Phosphatase 105 U/L (46-116); Amylase 44 U/L (25-115); BUN 17 mg/dL (7-18); Bilirubin, Total 0.3 mg/dL (0.2-1.0); CREATININE 1.04 mg/dL (0.55-1.02); Calcium 9.3 mg/dL (8.5-10.1); Chloride 102 mmol/L (98-107); Estimated GFR 53.35 (mL/min/1.73m2); Glucose 102 mg/dL (74-106); Lipase 241 U/L (73-393); Sodium 137 mmol/L (136-145); Total Protein 7.4 g/dL (6.4-8.2)
== END 2020-08-08 17:18 ==
LOC: NCHCN 16:58
PROVIDERS: PCP Nurse Practitioner Family; Visit Provider Family Medicine
DX: R10.13 Epigastric pain (principal)
CPT/HCPCS: 80053; 83690; 82150; 85025

== ENCOUNTER 2020-08-09 09:30 | Outpatient (REF) | payer MEDICARE, OTHER, SELFPAY ==
[2020-08-12 13:49] LABS: Helicobacter pylori Ag, Feces Negative (Negative)
== END 2020-08-09 09:50 ==
LOC: NCHCN 09:30
PROVIDERS: PCP Nurse Practitioner Family; Visit Provider Family Medicine
DX: R10.13 Epigastric pain (principal)
CPT/HCPCS: 87338

== ENCOUNTER 2021-03-24 10:15 | Outpatient (REF) | payer MEDICARE, OTHER, SELFPAY ==
--- NOTE | 2021-03-24 09:30 | PAPFT_PTH ---
PATIENT: Leona James LOC: [facility]#:[id number] AGE/SX: 65/F ROOM: RE03/24/[address]: Tracie Murray : 1955 BED: DIS: 03/24/2021 SPEC #: [id number] RECD: 03/24/21 17:23 STATUS: JONNY REDemetrius #: [id number] TYE: 03/24/21 09:[address]: Tracie Murray DEPT: [facility] Cytology RECD BY: Estrellita Squires Tissues: 1 - CX/ENDOCX FOR PAP SMEARS Procedures: PAP THIN PREP/UVM Screening HPV DNA PROBE Comments: [id number]
== END 2021-03-24 10:16 | disposition home or self-care (01) ==
LOC: NCHCN 10:15
PROVIDERS: PCP Nurse Practitioner Family; Visit Provider Nurse Practitioner Family
DX: Z00.00 Encounter for general adult medical examination without abnormal findings (principal); Z12.4 Encounter for screening for malignant neoplasm of cervix; Z01.419 Encounter for gynecological examination (general) (routine) without abnormal findings; Z11.51 Encounter for screening for human papillomavirus (HPV)
CPT/HCPCS: 88142; 87624

== ENCOUNTER 2021-04-21 02:38 | Outpatient (CLI) | payer MEDICARE, OTHER, SELFPAY ==
--- NOTE | 2021-04-21 | DI.MAMMO_ITS ---
Exam(s) MAMMO SCREENING EXAM: MAMMO SCREENING CLINICAL HISTORY: SCREENING,Z12.31 TECHNIQUE: Bilateral full field digital CC and MLO mammographic images were obtained with 3D tomosyn thesis and utilizing computer aided detection (CAD). COMPARISON: Available for comparison. FINDINGS: Masses/Architectural Distortion: None seen. The focal asymmetry in the upper-outer quadrant of the ri ght breast appears stable. Microcalcifications: No suspicious pleomorphic-type are seen. Skin Thickening/Nipple Retraction: None. IMPRESSION: 1. No significant interval change with no specific features of malignancy noted. 2. Unless there is more urgent need, screening mammography is recommended, as per [place] [employer] guidelines. BI-RADS Category 1 - Negative Breast Density - Category B - Scattered areas of fibroglandular density Breast density category C or D implies that the patient has dense breast tissue. Dense breast tissue is very common and is not abnormal but dense breast tissue can make it harder to find cancer on a ma mmogram. Also, dense breast tissue may increase their breast cancer risk. This information about the result of the mammogram report was provided to the patient to raise their awareness. Use this report when you speak with the patient about their risks for breast cancer, which includes their family hist ory. At that time, you may recommend for more screening tests (Ultrasound or MRI) as they might be us eful based on their risk. A negative radiographic report should not delay biopsy if a dominant or clinically suspicious mass is present. Up to ten percent of cancers are not identified on mammography. A negative report may reinforce clinical impression. Adenosis and dense breasts may obscure an underlying neoplasm. False positive reports average 6 to 10%. Patient will receive a letter notifying them of these results.
== END 2021-04-21 02:58 ==
PROVIDERS: PCP Nurse Practitioner Family; Visit Provider Nurse Practitioner Family
DX: Z12.31 Encounter for screening mammogram for malignant neoplasm of breast (principal)
CPT/HCPCS: 77063; 77067

== ENCOUNTER 2022-01-20 14:53 | Outpatient (REF) | payer MEDICARE, OTHER, SELFPAY ==
[2022-01-20 15:28] LABS: C-Reactive Protein 0.15 mg/dL (0.0-0.3)
[2022-01-20 15:30] LABS: Abs Immature Grans 0.02 10^3/uL (0.0-0.06); Absolute Basophil Count 0.03 10^3/uL (0.0-0.2); Absolute Eosinophil Count 0.12 10^3/uL (0.0-0.7); Absolute Lymphocyte Count 1.97 10^3/uL (1.2-3.4); Absolute Monocyte Count 0.76 10^3/uL (0.1-0.8); Absolute Neutrophil Count 4.05 10^3/uL (1.2-6.7); Basophils % 0.4; Eosinophils % 1.7; HCT 40.2 % (36.0-46.0); HGB 13.5 g/dL (11.2-15.7); Immature Grans % 0.3; Lymphocytes % 28.3; MCH 29.7 pg (27.0-33.0); MCHC 33.6 % (32.0-36.0); MCV 88 fL (80-95); MPV 10.5 fL (8.0-11.0); Monocytes % 10.9; Neutrophils % 58.4; Platelet Count 229 10^3/uL (130-400); RBC 4.55 10^6/uL (3.93-5.22); RDW 12.8 % (11.7-14.6); RDW-SD 41.6 fL; WBC 6.95 10^3/uL (4.4-10.8)
[2022-01-20 15:34] LABS: ESR 17 mm/hr (0-30)
[2022-01-20 22:20] LABS: Rheumatoid Factor <8.6 IU/mL (<12.0)
[2022-01-21 15:56] LABS: ANA Interpretation Negative (Negative)
[2022-01-22 12:19] LABS: c-ANCA Negative (Negative); p-ANCA Negative (Negative)
== END 2022-01-20 14:54 | disposition home or self-care (01) ==
LOC: NCHCN 14:53
PROVIDERS: PCP Nurse Practitioner Family; Visit Provider Family Medicine
DX: M25.50 Pain in unspecified joint (principal)
CPT/HCPCS: 85652; 85025; 86038; 86140; 86255; 86431

== ENCOUNTER → 2022-02-08 00:49 | Outpatient (CLI) | payer MEDICARE, OTHER, SELFPAY ==
--- OUTSIDE RECORDS SUMMARY | 2022-02-08 00:51 | XMS_ITS | Encounter Summary ---
:1955 Author Organization [facility] Address [address] [place] [address] Care Team Providers Name Role Phone Karine Tidwell [employer]ER Primary Care Provider Encounter Details Date Type Department Care Team Description 11/25/2016 Results Only [facility] Katia Hanks DO [phone] [facility] [facility] [facility] [address] [place] [address] (Wo rk) Social History Tobacco Use Types Packs/Day Years Used Date Never Assessed Sex Assigned at Date Recorded Not on file documented as of this encounter Plan of Treatment Not on filedocumented as of this encounter Procedures Procedure Name Priority Date/Time Associated Diagnosis Comme [facility] SURGICAL PATHOLOGY Routine 11/25/2016 14:17 Resul ts for this EDT procedure are i n the results section. documented in this encounter Results SURGICAL PATHOLOGY (11/25/2016 14:17 EDT) Pathology Report: SURGICAL PATHOLOGY REPORT [facility] Reports generated via electronic interface contain shilpa ginal data; LABORATORY however they are lacking the format of the original re port. SERVICES Caution should be taken when reading/interpreting unfo rmatted reports. Name: ? LEONA SETHI ? Accession #: ? [id number] ? : ? 1955 (Age: 6 1) ??F ? Collect Date: ? 11/25/2016 ? Location: ? [facility] ? Receive Date: ? 7 ? Provider: KATIA HANKS DO Copy to: MORGAN REDDY MD ? Final Pathologic Diagnosis: APPENDIX, APPENDECTOMY: - ??Acute suppurative appendicitis and periappendiciti s. Document reviewed and electronically signed by: BRAD RODRIGUEZ MD Report ??Date: 11/30/2016 11:37 By the signature above, the attending physician certif ies that he/she has personally conducted a gross and/or microscopic examin ation of the described specimens and rendered or confirmed the above diagnosi s. Specimen(s) Received: Appendix Clinical History: Acute appendicitis Gross Description: ? Received in normal saline labelled with proper patient identification (initials T, J) and appendix is a verm iform appendix (8.4 cm in length x 0.7 cm in diameter), with a dusky mesoappendix. The proxim al margin is stapled. ? The serosa is fitzpatrick-pin k and smooth with a moderate amount of attached white fibrous material. The cut surface is fitzpatrick-white and fir m. The average wall thickness is 0.2 cm with no discernible perforation site. The lumen ranges from 0.2 cm to 0.4 in diameter. The proximal margin is inke d blue. ? The section adjacent to the proxi mal stapled margin, two motor vehicle field representative cross sections and one-half of the longitudinally bise cted distal tip are submitted in 1. Dr. Nuno 11/26/2016 2:57 PM End of Report Specimen Performing Organization Address City/State/ZIP Code Phon e Number [facility] [address] [place] [id number] SERVICES documented in this encounter Visit Diagnoses Not on filedocumented in this encounter Care Teams Chemist Water Purification Relationship Specialty Start Date End Date Karine Tidwell FNP PCP - General 02/07/09 02/10/20 [address] [place] [address] documented as of this encounter
--- OUTSIDE RECORDS SUMMARY | 2022-02-08 00:51 | XMS_ITS | Clinical Summary ---
:1955 Author Organization [facility] Address [address] [place] [id number] Care Team Providers Name Role Phone Tracie Murray MERARY Primary Care Provider [phone] Encounters Date Type Specialty Care Team Description 01/20/2022 Lab Requisition Clinical Laboratory Outr Resulting Lab , Provider from Last 3 Months Social History Tobacco Use Types Packs/Day Years Used Date Never Assessed Sex Assigned at Date Recorded Not on file Plan of Treatment Health Maintenance Due Date Last Done Comments COVID-19 Vaccine (1) 1967 Fall Risk Screening 2020 Procedures Procedure Name Priority Date/Time Associated Comments Diagnosis RHEUMATOID FACTOR Routine 01/20/2022 11:50 Result s for this EDT procedure are i n the results section. ANTI NUCLEAR AB Routine 01/20/2022 11:50 Results for this (JOSETTE), IFA EDT procedure are i n the results section. from Last 3 Months Results RHEUMATOID FACTOR (01/20/2022 11:50 EDT) Pathologist Sig nature Rheumatoid Factor <8.6 <12.0 IU/mL [facility] SERVICES Specimen Blood - Venous blood (substance) Performing Organization Address City/[facility] Phon e Number [facility] [address] [place] [address] SERVICES ANTI NUCLEAR AB (JOSETTE), IFA (01/20/2022 11:50 EDT) JOSETTE Interpretation NegativeComment: Negative [facility] No titer LABORATORY SERVICES performed, JOSETTE Screen is negative. Specimen Blood - Venous blood (substance) Narrative [facility] - 01/21/2022 15:52 EDT Results were obtained with the INOVA NOV A Lite HEp-2 JOSETTE Kit by indirect immunofluorescence. Performing Organization Address City/[facility] Phon e Number [facility] [address] [place] [address] SERVICES from Last 3 Months Insurance Payer Benefit Plan / Subscriber ID Effective Dates Phone Addre ss Type Group [facility] [id number] 2019-Present [address] [facility] [place] [address] Care Teams Green Chain Worker Relationship Specialty Start Date End Date Tracie Murray APRN PCP - General 02/11/20 [address] [place] [phone]
--- OUTSIDE RECORDS SUMMARY | 2022-02-08 00:51 | XMS_ITS | Encounter Summary ---
:1955 Author Organization [facility] Address [address] [place] [address] Care Team Providers Name Role Phone Tracie Murray APRN Primary Care Provider [phone] Encounter Details Date Type Department Care Team Description 08/10/2020 Lab Requisition [facility] Outr Resulting Lab, Pathology & Laboratory Provider [facility] [address] [place], [place] [id number] Social History Tobacco Use Types Packs/Day Years Used Date Never Assessed Sex Assigned at Date Recorded Not on file documented as of this encounter Plan of Treatment Not on filedocumented as of this encounter Procedures Procedure Name Priority Date/Time Associated Diagnosis Comme nts H. PYLORI ANTIGEN Routine 08/09/2020 5:00 EST Res ults for this procedure are i n the results section. documented in this encounter Results H. PYLORI ANTIGEN (08/09/2020 5:00 EST) Pathologist Sig nature H. Pylori Negative Negative [facility] Y SERVICES Specimen Feces - Specimen from rectum (specimen) Narrative [facility] SERVICES - 08/12/2020 13:43 EST Results were obtained with the Premier P latinum HpSA Plus SHANDRA. Performing Organization Address City/State/ZIP Code Phon e Number [facility] [address] [place] [address] SERVICES documented in this encounter Visit Diagnoses Not on filedocumented in this encounter Care Teams Inside Sales Consultant Relationship Specialty Start Date End Date Tracie Murray APRN PCP - General 02/11/20 [address] [place] [phone] documented as of this encounter
--- OUTSIDE RECORDS SUMMARY | 2022-02-08 00:51 | XMS_ITS | Clinical Summary ---
:1955 Author Organization [facility] [place] [address] Care Team Providers Name Role Phone Tracie Murray APRN Primary Care Provider [phone] Encounters Date Type Specialty Care Team Description 02/02/2022 Transcribe Orders Primary Care Nataliia Bain MD Arthr algia, unspecified joint from Last 3 Months Social History Tobacco Use Types Packs/Day Years Used Date Never Assessed Sex Assigned at Date Recorded Not on file Plan of Treatment Health Maintenance Due Date Last Done Comments Covid-19 Vaccine (#1) 1960 Hepatitis C Screening 1973 Tdap adult 1974 Tetanus vaccine 1974 HPV test 1985 PAP Smear 1985 Breast Cancer Share Decision Needed 1995 Colonoscopy 2000 Breast Cancer screening 2005 Zoster vaccine (1 of 2) 2005 Advance Directive 2010 Bone Density Scan 2020 Pneumoccocal Vaccine: 65+ (1 - PCV) 2020 Influenza (Flu) vaccine (1 of 1 - Influenza standard 03/25/2022 series) Procedures Procedure Name Priority Date/Time Associated Diagnosis Comme nts LAB SCAN 01/20/2022 12:00 AM Results for this EDT procedure are i n the results section . LAB SCAN 01/20/2022 12:00 AM Results for this EDT procedure are i n the results section . from Last 3 Months Results SCAN DOC: LAB (01/20/2022 12:00 AM EDT)Only the most recent of2 resultswithin the time period is included. Narrative This result has an attachment that is no t available. Unknown MEDIA MGR SCAN EXT ORDR/RSLT from Last 3 Months Insurance Payer Benefit Plan / Subscriber ID Effective Phone Address T ype Group Dates AETNA MEDICARE AETNA MEDICARE [id number] 2020-Prese [address] [address] [place] [address] MEDICARE MEDICARE PART A [id number] 2022-Prese [phone] [place] [address] Care Teams Electroencephalograph Technician Relationship Specialty Start Date End Date Tracie Murray, BYPRODUCTS EXTRACTOR PCP - General Family Medicine 01/24/19 [address] [place], [place] [id number]
--- OUTSIDE RECORDS SUMMARY | 2022-02-08 00:51 | XMS_ITS | Encounter Summary ---
:1955 Author Organization [facility] [address] Care Team Providers Name Role Phone Rob Justin MD Primary Care Provider Encounter Details Date Type Department Care Team Description 12/07/2018 Hospital [place] [address] Social History Tobacco Use Types Packs/Day Years Used Date Never Assessed Sex Assigned at Date Recorded Not on file documented as of this encounter Plan of Treatment Not on filedocumented as of this encounter Procedures Procedure Name Priority Date/Time Associated Diagnosis Comme nts SURGICAL PATHOLOGY Routine 12/07/2018 10:05 AM Re sults for this REPORT EDT procedure are i n the results section. documented in this encounter Results Surgical Pathology Report (12/07/2018 10:05 AM EDT) Component Value Ref Test Analysis Performed At [facility] Method Time Signature Surgical [id number]-[id number] ? Location: [facility] Pathology [place] Report The signing pathologist has (i) examined the relevant preparation(s) for the [facility] specimen(s) and (ii) rendered or confirmed the diagnosis(es) . HOSPITAL LABORATORY . ?Surgic al Pathology DIAGNOSIS Gastric antrum, biopsy: - Antrum-type mucosa, negative for diagnostic abnormality. Electronically signed by: ??Delbert Marquez MD Verified: ??12/12/2018 ?Pathologist Performed at: ??-[facility] Dept. of Pathology, [place], [place] CLINICAL INFORMATION Specimen Submitted: A - Gastric antrum Clinical History and Diagnosis: Epigastric pain Referring Identifier: ?(not provided) SPECIMEN PROCESSING Labeled/Fixative: Gastric antrum biopsy, formalin. Quantity/Size: Four, ranging from 0.2-0.3 cm. Tissue Description: Soft, fitzpatrick-pink tissues. Sections/Processing: Submitted en toto ??in 1 cassette labeled A1. ??apb Specimen (Source) Anatomical Collection Method Collection Time Re ceived Time Location / / Volume Laterality 12/07/2018 10:05 AM EDT Winston Hanks DO PATHOLOGY/CYTOLOGY ORDERABLE S Performing Organization Address City/State/ZIP [place] [address] documented in this encounter Visit Diagnoses Not on filedocumented in this encounter Care Teams Manager Sql Relationship Specialty Start Date End Date Rob Justin MD PCP - General 06/16/10 01/23/19 HOSPITALIST [address] [place] [address] documented as of this encounter
--- OUTSIDE RECORDS SUMMARY | 2022-02-08 00:51 | XMS_ITS | Encounter Summary ---
:1955 Author Organization [facility] Address [address] [place] [address] Care Team Providers Name Role Phone Karine Tidwell GLAZIER APPRENTICE Primary Care Provider Encounter Details Date Type Department Care Team Description 01/31/2015 Results Only [facility]- Yo Son, FOSTER CARE THERAPIST [address] [facility] [address] [place], [place] [phone] (Wo rk) Social History Tobacco Use Types Packs/Day Years Used Date Never Assessed Sex Assigned at Date Recorded Not on file documented as of this encounter Plan of Treatment Not on filedocumented as of this encounter Procedures Procedure Name Priority Date/Time Associated Diagnosis Comme nts PAP TEST- RESULT Routine 01/31/2015 0:00 EDT Resu lts for this ONLY procedure are i n the results section. documented in this encounter Results PAP TEST- RESULT ONLY (01/31/2015 0:00 EDT) Pathology Report: CYTOPATHOLOGY REPORT [facility] Reports generated via electronic interface contain shilpa ginal data; SERVICES however they are lacking the format of the original re port. Caution should be taken when reading/interpreting unfo rmatted reports. Name: ? LEONA SETHI ? Accession #: ? [id number] ? : ? 1955 (Age: [age]) ??F ?Collect Date: ? 01/31/2015 ? Location: ? [facility] ? Receive Date: ? 02/05/20 15 ? Provider: YO LEWIS FOSTER CARE THERAPIST Copy to: ? Final Report SPECIMEN ADEQUACY ? Satisfactory for Evaluation - assessment of transformation zone component not appl icable ( e.g. atrophy, vaginal sample, hysterectomy) GENERAL CATEGORIZATION ? Negative for Intraepithelial Lesion or Malignan cy ?? Menstrual/ Status: ??Post Menopausal Previous Gynecologic Pathology: Yes: Hx abn pap 7 year s ago Specimen/Source: ??Pap Test, Cervix/Endocervix, ThinPr ep Imaging System with manual evaluation Document reviewed and electronically signed by: ? ISH Rowell(ASCP) ? Report ??Date: 02/11/2015 08:42 HPV with Pap Test ? Date Ordered: ? 02/11/2015 ? Status: ?? Signed Out ?Date Complete: ? 02/12/2015 ? By: ??Sy stem Interface ? Date Reported: ? 02/12/2015 ? Interpretation RESULT: Negative for HPV. No E6 or E7 mRNA is detected from HPV types 16,18,31,3 3,35, 39,45,51,52,56,58,59,66, and 68 by cold storage supervisor media young amplification. Comments Document reviewed and electronically signed by: ? System Interface ? Report date: 02/12/2015 By the signature above, the attending physician certif ies that he/she has personally conducted a gross and/or microscopic examin ation of the described specimens and rendered or confirmed the above diagnosi s. End of Report Specimen Performing Organization Address City/State/ZIP Code Phon e Number [facility] [address] [place] [address] SERVICES documented in this encounter Visit Diagnoses Not on filedocumented in this encounter Care Teams Tobacco Classer Relationship Specialty Start Date End Date Karine Tidwell FNP PCP - General 02/07/09 02/10/20 [address] [place], [place] [address] documented as of this encounter
--- OUTSIDE RECORDS SUMMARY | 2022-02-08 00:51 | XMS_ITS | Encounter Summary ---
:1955 Author Organization [facility] Address [address] [place] [address] Care Team Providers Name Role Phone Barry Tidwell Primary Care Provider Encounter Details Date Type Department Care Team Description 11/19/2010 Results Only [facility] Barry Tidwell FNP Laboratory Services - [place] [address] [address] [place] [address] [phone] Social History Tobacco Use Types Packs/Day Years Used Date Never Assessed Sex Assigned at Date Recorded Not on file documented as of this encounter Plan of Treatment Not on filedocumented as of this encounter Procedures Procedure Name Priority Date/Time Associated Diagnosis Comme nts PAP TEST- RESULT Routine 11/19/2010 0:00 EDT Resu lts for this ONLY procedure are i n the results section. documented in this encounter Results PAP TEST- RESULT ONLY (11/19/2010 0:00 EDT) Pathology Report: CYTOPATHOLOGY REPORT ? [facility] ? LAB Reports generated via electr onic interface contain original data; ? however they are lacking the format of the original report. ? Caution should be taken when reading/interpreting unformatted reports. ? Name: ? LEONA SETHI ? Accession #: ? [id number] ? : ? 1955 (Age: 55) ??F ?Collect Date: ? 11/19/2010 ? Location: ? [facility] ? Receive Date: ? 11/23/2010 ? Provider: ?BARRY Phelan SOAP WORKER ? Copy to: ? Specimen/Source: ? Pap Test, Cervix/Endocervix, ThinPrep Imaging System ? with manual evaluation ? Last Menstrual Period: ? 7/10 ? SPECIMEN ADEQUACY ? Satisfactory for Eval uation ? - assessment of transformati on zone component not applicable ( e.g. atrophy, ? vaginal sample, hysterectomy ) ? - scant squamous epithelial component ? GENERAL CATEGORIZATION ? Negative for Intraepi thelial Lesion or Malignancy ? Document reviewed and electr onically signed by: ? Lynan Trenton, [place](ASCP) ? Report Date: ??05/04/ 2011 11:19 ? End of Report ? Specimen Performing Organization Address City/State/[facility] Code Phon e Number [facility] [address] [place] [address] SERVICES [facility] [address] [place] [address] documented in this encounter Visit Diagnoses Not on filedocumented in this encounter Care Teams Commutator Repairer Relationship Specialty Start Date End Date Barry Tidwell FNP PCP - General 02/07/09 02/10/20 [address] [place], [place] [phone] documented as of this encounter
--- OUTSIDE RECORDS SUMMARY | 2022-02-08 00:51 | XMS_ITS | Encounter Summary ---
:1955 Author Organization [facility] Address [address] [place] [address] Care Team Providers Name Role Phone TidwellBarry LUAN Primary Care Provider Encounter Details Date Type Department Care Team Description 11/29/2012 Results Only [facility] Barry Tidwell FNP Laboratory Services - [place] [address] [address] [place], [place] [address] [phone] Social History Tobacco Use Types Packs/Day Years Used Date Never Assessed Sex Assigned at Date Recorded Not on file documented as of this encounter Plan of Treatment Not on filedocumented as of this encounter Procedures Procedure Name Priority Date/Time Associated Diagnosis Comme nts PAP TEST- RESULT Routine 11/29/2012 0:00 EDT Resu lts for this ONLY procedure are i n the results section. documented in this encounter Results PAP TEST- RESULT ONLY (11/29/2012 0:00 EDT) Pathology Report: CYTOPATHOLOGY REPORT [facility] Reports generated via electronic interface contain shilpa ginal data; however they are lacking the format of the original re port. Caution should be taken when reading/interpreting unfo rmatted reports. Name: ? LEONA SETHI ? Accession #: ? [id number] : ? 1955 (Age: 57) ??F ?Collect Date: ? 05/0 02/2013 Location: ? [facility] ? Receive Date : ? 11/30/2012 Provider: ?BARRY ROLAND Copy to: ? Specimen/Source: ? Pap Test, Cervix/Endocervix, ThinPrep Imaging System with manual evaluation Last Menstrual Period: ? MILES ? SPECIMEN ADEQUACY ? Satisfactory for Evaluation - transformation zone component present GENERAL CATEGORIZATION ? Negative for Intraepithelial Lesion or Malignan cy ? Document reviewed and electronically signed by: ? ISH Huff(ASCP) ? Report Date: ??12/06/2012 07:06 End of Report Specimen Performing Organization Address City/State/ZIP Code Phon e Number [facility] [address] [place] [address] SERVICES [facility] [address] [place] [address] documented in this encounter Visit Diagnoses Not on filedocumented in this encounter Care Teams Food Consultant Relationship Specialty Start Date End Date Barry Tidwell FNP PCP - General 02/07/09 02/10/20 [address] [place], [place] [address] documented as of this encounter
--- OUTSIDE RECORDS SUMMARY | 2022-02-08 00:51 | XMS_ITS | Encounter Summary ---
:1955 Author Organization [facility] Address [address] [place] [address] Care Team Providers Name Role Phone TrevorAbebaTracie Tushar SENIOR LIVING SALES COUNSELOR Primary Care Provider [phone] Encounter Details Date Type Department Care Team Description 03/18/2020 Lab Requisition [facility] Tracie Murray En counter for general adult medical examination without abnormal findings; Pathology & H, SENIOR LIVING SALES COUNSELOR Encounter for screening for malignant ne oplasm of cervix; Laboratory Medicine 26 [facility] for gynecological examination (general) (routine) without abnormal findings - [facility] [address] [place] [phone] Social History Tobacco Use Types Packs/Day Years Used Date Never Assessed Sex Assigned at Date Recorded Not on file documented as of this encounter Plan of Treatment Not on filedocumented as of this encounter Procedures Procedure Name Priority Date/Time Associated Diagnosis Comme nts PAP TEST Today 03/14/2020 8:45 EDT Encounter for general Results for this adult medical procedure are in examination without the resu lts abnormal finding s section. Encounter for screening for malignant neoplasm of cervix Encounter for gynecological examination (general) (routine) without abnormal findings documented in this encounter Results PAP TEST (03/14/2020 8:45 EDT) Specimens A. Cervix and/or [facility] MEDICAL Endocervix , CENTER ThinPrep Imaging LABORATORY System with Manual SERVICES Evaluation Specimen Adequacy Unsatisfactory for [facility] MEDICAL evaluation - CENTER insufficient numbers LABORATORY of squamous SERVICES epithelial cells (less than 10% of expected cellularity) possibly due to lubricant. General Unsatisfactory [facility] MEDICAL Categorization CENTER LABORATORY SERVICES Educational Comments Unsatisfactory - Specimen pr ocessed and examined, but unsatisfactory for evaluation of epithelial abnormality. Recommend Pap test in 2-4 months as stated in ASCCP's 2012 Updated Guidelines. HPV testing [facility] will not be performed due to the potential for false n egative results. [place] [facility] SERVICES Attestation . [facility] Electronically CENTER signed by ROQUE Chowdhury CT(ASCP) on SERVICES 03/29/2020 at 142 7 Scanned Images [facility] LABORATORY SERVICES Specimen Pap Test - Cervix and/or Endocervix Performing Organization Address City/State/[facility] Code Phon e Number [facility] [address] [place] [address] SERVICES documented in this encounter Visit Diagnoses Diagnosis Encounter for general adult medical exam ination without abnormal findings Unspecified general medical examination Encounter for screening for malignant ne oplasm of cervix Screening for malignant neoplasm of the cervix Encounter for gynecological examination (general) (routine) without abnormal findings documented in this encounter Care Teams Messenger Copy Relationship Specialty Start Date End Date Tracie Murray, SENIOR LIVING SALES COUNSELOR PCP - General 02/11/20 [address] [place] [address] documented as of this encounter
--- OUTSIDE RECORDS SUMMARY | 2022-02-08 00:51 | XMS_ITS | Encounter Summary ---
:1955 Author Organization [facility] [place] [address] Care Team Providers Name Role Phone Tracie Murray APRN Primary Care Provider [phone] Reason for Referral Consultation (Routine) - Denied Specialty Diagnoses / Procedures Referred By Contact Refer red To Contact Rheumatology Diagnoses Arthralgia, unspecified joint Nataliia Bain MD [facility] Rheumatology 5c [address] [place], [place] [id number] [place] [phone] Fax: Referral ID Status Reason Start Date Expiration Date Visits V isits Requested Authorized [id number] Denied Consult, Test 02/02/2022 02/02/2023 12 0 & Treat PCP Updated and/or Approved Encounter Details Date Type Department Care Team Description 02/02/2022 Transcribe Orders eDH Incoming Nataliia Bain Arthralg ia, Referrals unspecified joint [phone] [address] [place] [address] Social History Tobacco Use Types Packs/Day Years Used Date Never Assessed Sex Assigned at Date Recorded Not on file documented as of this encounter Plan of Treatment Scheduled Referrals Name Type Priority Associated Diagnoses Order S chedule Referral to Outpatient Referral Routine Arthralgia, Ordered: Rheumatology unspecified joint 02/02/2022 documented as of this encounter Visit Diagnoses Diagnosis Arthralgia, unspecified joint documented in this encounter Care Teams Exhibit Cleaner Relationship Specialty Start Date End Date Tracie Murray APRN PCP - General Family Medicine 01/24/19 [address] [place] [address] documented as of this encounter
--- OUTSIDE RECORDS SUMMARY | 2022-02-08 00:51 | XMS_ITS | Encounter Summary ---
:1955 Author Organization [facility] Address [address] [place] [address] Care Team Providers Name Role Phone Karine Tidwell LUAN Primary Care Provider Encounter Details Date Type Department Care Team Description 10/28/2010 Results Only [facility] Kelvin Torre MD Laboratory Services - [address] [place] [address] 0 [facility] [place] [address] [phone] Social History Tobacco Use Types Packs/Day Years Used Date Never Assessed Sex Assigned at Date Recorded Not on file documented as of this encounter Plan of Treatment Not on filedocumented as of this encounter Procedures Procedure Name Priority Date/Time Associated Diagnosis Comme [facility] SURGICAL PATHOLOGY Routine 10/28/2010 0:00 EDT Re sults for this procedure are i n the results section. documented in this encounter Results SURGICAL PATHOLOGY (10/28/2010 0:00 EDT) Pathologist [facility] Pathology SURGICAL PATHOLOGY REPORT ? [facility] Report: Reports generated via electr [employer] interface contain original data; ? LAB however they are lacking the format of the original report. ? Caution should be taken when reading/interpreting unformatted reports. ? Name: ? TANGUAY, LEONA J ? Accession #: ? [id number] ? : ? 1955 (Age: 55) ??F ? Collec t Date: ? 10/28/2010 ? Location: ? [facility] ? R eceive Date: ? 10/28/2010 ? Provider: KELVIN WALKO MD ? Copy to: KARINE TIDWELL TYPE PHOTOGRAPHY SUPERVISOR ? Final Pathologic Diagnosis: ? A. ?Stomach, an trum, biopsies: ? 1. ?Antral muco sa with mild chronic gastritis. ? 2. ? Immunostaining for Helicobacter pylori is negative. See comment. ? B. ?Stomach, yao dy, biopsies: ? 1. ?Fundic muco sa with mild chronic gastritis. ? 2. ? Fundic gland polyp/ proton pump inhibitor effect. ? C. ?Esophagus, lower, biopsy: ? 1. ?Squamocolum gita junctional mucosa with mild chronic inflammation. ? 2. ? Negative for intest inal metaplasia/dysplasia. ? Comment: ? Immunohistochemical s taining was performed on this case to further ? characterize the lesion. ??P ositive and negative controls stained appropriately. (Dr. Dumont)/ljn ? Block ?Antibody (Clone) ? Result ? A ?TusharChelsea dalyi (polyclonal, [facility]) ?- Negative ? NOTE: ??One or more of the reagents used in immunohistochemical testing in this case may not have been clear ed or approved by the U.S. Food and Drug ? Administration (FDA). ??The FDA has determined that such clearance or approval is not necessary. ??These tests are used for clinical purposes. ??They should not be regarded as investigational or for research. ??These reagents' ??performance ? characteristics have been de termined by [facility]. ??This ? laboratory is certified unde r the Clinical Laboratory Improvement Amendments of 1988 (CLIA-88) as qualified to perform high complexity clinical laboratory ? testing. ? Document reviewed and electr onically signed by: ? SOFIA S MITCHELL MD ? Report ??Date: 11/02/2010 13 :15 ? By the signature above, the attending physician certifies that he/she has ? personally conducted a gross and/or microscopic examination of the described ? specimens and rendered or co nfirmed the above diagnosis. ? Specimen(s) Received: ? A. ?Bx antrum ? B. ? Bx body of stomach ? C. ? Cruz's lower e sophagus ? Clinical History: ? H/O H. pylori infecti on, F/H of esophageal Ca, GERD ? Gross Description: ? Received in formalin labelled Tanguay, Leona and biopsy antrum are ? three pink soft irregular ti ssue fragments ranging from 0.1 x 0.1 x 0.1 cm to ?? 0.3 x 0.3 x 0.2 cm. ??The sp ecimen is submitted entirely as (A). ? Received in formalin warren d Leona James and biopsy body of stomach are two yellow-fitzpatrick soft irregula r tissue fragments measuring 0.7 x 0.2 x 0.2 cm and 0.8 x 0.2 x 0.2 cm. ??The sp ecimen is submitted entirely as (B). ? Received in formalin warren d Leona Jamse and ? Cruz's lower esophagus is a 0.3 x 0.2 x 0.2 cm fitzpatrick soft irregular tissue fragment. ??The specimen is ? submitted entirely as (C). ? ?(John Gaytan/sandra ? End of Report ? Specimen Performing Organization Address City/State/ZIP Code Phon e Number [facility] [address] [place] [address] SERVICES [facility] [address] [place] [address] documented in this encounter Visit Diagnoses Not on filedocumented in this encounter Care Teams Window Assembler Relationship Specialty Start Date End Date Karine Tidwell FNP PCP - General 02/07/09 02/10/20 [address] [place] [address] documented as of this encounter
--- OUTSIDE RECORDS SUMMARY | 2022-02-08 00:51 | XMS_ITS | Encounter Summary ---
:1955 Author Organization [facility] Address [address] [place] [address] Care Team Providers Name Role Phone Trevor Tracie H OPTOMETRIST Primary Care Provider [phone] Encounter Details Date Type Department Care Team Description 03/25/2021 Lab Requisition [facility] Tracie Murray En counter for general adult medical examination without abnormal findings; Pathology & H, OPTOMETRIST Encounter for screening for malignant ne oplasm of cervix; Laboratory Medicine 26 [facility] for gynecological examination (general) (routine) without abnormal findings - [facility] [address] [place] [id number] Social History Tobacco Use Types Packs/Day Years Used Date Never Assessed Sex Assigned at Date Recorded Not on file documented as of this encounter Plan of Treatment Not on filedocumented as of this encounter Procedures Procedure Name Priority Date/Time Associated Diagnosis Comme nts PAP TEST Today 03/24/2021 9:30 Encounter for general Res ults for this EDT adult medical procedure are in examination without the resu lts abnormal finding s section. Encounter for screening for malignant neoplasm of cervix Encounter for gynecological examination (general) (routine) without abnormal findings HUMAN PAPILLOMAVIRUS Today 03/24/2021 9:30 Encounter for gen eral Results for this (HPV) DETECTION-HIGH EDT adult medical proced ure are in RISK TYPES examination without the resu lts abnormal finding s section. Encounter for screening for malignant neoplasm of cervix Encounter for gynecological examination (general) (routine) without abnormal findings documented in this encounter Results HUMAN PAPILLOMAVIRUS (HPV) DETECTION-HIGH RISK TYPES (03/24/2021 9:30 EDT) Human Papillomavirus NegativeComment: No Negative [facility] (HPV) Detection-High E6 or E7 mRNA is CENTER LABORATOR Y Types detected from HPV SERVICES types 16,18,31,33,35,39,45 ,51,52,56,58,59,66, and 68 by copper miner blasting mediated amplification. Specimen Pap Test - Cervix and/or Endocervix Performing Organization Address City/[facility]/ZIP Code Phon e Number [facility] [address] [place] [address] SERVICES PAP TEST (03/24/2021 9:30 EDT) Specimens A. Cervix and/or [facility] Endocervix , ThinPrep CENTER Imaging System with LABORATORY Manual Evaluation SERVICES Specimen Adequacy Satisfactory for Evaluation - assessment of transformation zone component not applicable ( e.g. atrophy, vaginal sample, hysterectomy) [facility] Scant squamous epithelial component, con tamination present, possibly lubricant CENTER LABORATORY SERVICES General Negative for [facility] Categorization intraepithelial CENTER lesion or malignancy LABORATORY SERVICES Attestation . [facility] Electronically CENTER signed by ROQUE Chaudhry CT(ASCP) o n SERVICES 04/08/2021 at 11 43 Clinical History See below [facility] SERVICES HPV The result for the Human Pap illomavirus (HPV) Detection-High Risk Types is Negative. No E6 or E7 mRNA is detected from HPV types 16,18,31,33,35,39,45,51,52,56,58,59,66, and 68 by copper miner blasting mediated [facility] amplification.Testing was pe rformed on specimen [id number] and was resulted on 04/08/2021 0705 EDT by PRASAD, LAB INSTRUMENT RESULTS IN [facility] SERVICES Performing Lab [facility] LAB [facility] Scanned Images [facility] SERVICES Specimen Pap Test - Cervix and/or Endocervix Performing Organization Address City/[facility]/ZIP Code Phon e Number [facility] [address] [place] [address] SERVICES documented in this encounter Visit Diagnoses Diagnosis Encounter for general adult medical exam ination without abnormal findings Unspecified general medical examination Encounter for screening for malignant ne oplasm of cervix Screening for malignant neoplasm of the cervix Encounter for gynecological examination (general) (routine) without abnormal findings documented in this encounter Care Teams Wool Sorter Relationship Specialty Start Date End Date Tracie Murray APRN PCP - General 02/11/20 NA[facility] [address] [place] [phone] documented as of this encounter
--- OUTSIDE RECORDS SUMMARY | 2022-02-08 00:51 | XMS_ITS | Encounter Summary ---
:[address] [facility] Address [address] [place] [address] Care Team Providers Name Role Phone Tracie Murray MERARY Primary Care Provider [phone] Encounter Details Date Type Department Care Team Description 01/20/2022 Lab Requisition [facility] Outr Resulting Lab, Pathology & Laboratory Provider [facility] [address] [place], [place] [address] Social History Tobacco Use Types Packs/Day Years Used Date Never Assessed Sex Assigned at Date Recorded Not on file documented as of this encounter Plan of Treatment Not on filedocumented as of this encounter Procedures Procedure Name Priority Date/Time Associated Comments Diagnosis RHEUMATOID FACTOR Routine 01/20/2022 11:50 Result s for this EDT procedure are i n the results section. ANTI NUCLEAR AB Routine 01/20/2022 11:50 Results for this (JOSETTE), IFA EDT procedure are i n the results section. documented in this encounter Results RHEUMATOID FACTOR (01/20/2022 11:50 EDT) Pathologist Sig nature Rheumatoid Factor <8.6 <12.0 IU/mL [facility] LABORATORY SERVICES Specimen Blood - Venous blood (substance) Performing Organization Address City/State/ZIP Code Phon e Number [facility] [address] [place] [address] SERVICES ANTI NUCLEAR AB (JOSETTE), IFA (01/20/2022 11:50 EDT) JOSETTE Interpretation NegativeComment: Negative [facility] No titer LABORATORY SERVICES performed, JOSETTE Screen is negative. Specimen Blood - Venous blood (substance) Narrative [facility] SERVICES - 01/21/2022 15:52 EDT Results were obtained with the INOVA NOV A Lite HEp-2 JOSETTE Kit by indirect immunofluorescence. Performing Organization Address City/State/ZIP Code Phon e Number [facility] [address] [place] [address] SERVICES documented in this encounter Visit Diagnoses Not on filedocumented in this encounter Care Teams Statement Services Representative Relationship Specialty Start Date End Date Tracie Murray APRN PCP - General 02/11/20 26 [facility] [address] [place] [phone] documented as of this encounter
--- OUTSIDE RECORDS SUMMARY | 2022-02-08 00:51 | XMS_ITS | Encounter Summary ---
:1955 Author Organization [facility] Address [address] [place] [address] Care Team Providers Name Role Phone Tracie Murray MERARY Primary Care Provider [phone] Encounter Details Date Type Department Care Team Description 02/14/2020 Lab Requisition [facility] Alejandro Broussard ncounter for other Pathology & T, RPA general examination Laboratory Medicine [address] [facility] [address] [place] [address] [place] [address] Social History Tobacco Use Types Packs/Day Years Used Date Never Assessed Sex Assigned at Date Recorded Not on file documented as of this encounter Plan of Treatment Not on filedocumented as of this encounter Procedures Procedure Name Priority Date/Time Associated Diagnosis Comme nts SURGICAL PATHOLOGY Today 02/12/2020 9:00 EDT Encounter for o ther Results for this general examination procedur e are in the results section. documented in this encounter Results SURGICAL PATHOLOGY (02/12/2020 9:00 EDT) Final Diagnosis A. SKIN OF TORSO, POSTERIOR, PUNCH BIOPSY: [facility] Electronically - Melanocytic nevus, junctio nal type, with unusual architectural features and mild cytologic atypia. See comment. CENTER sign ed by Hugh, - Lesion extends to peripheral edge of biopsy specimen . LABORATORY Charlotte Ryan MD on SERVICES 02/15/2020 at 09 40 Attestation By the signature [facility] Electronica lly below, the attending CENTER signed by Hugh, physician certifies LABORATORY Charlotte sultana MD on that they have 1) SERVICES 02/15/2020 at 0940 personally conducted a gross and/or microscopic examination of the described specimen(s), and/or personally interpreted the results of laboratory testing of the described specimen(s), and 2) personally rendered or confirmed the above diagnosis. Diagnosis Comment The findings are [facility] those of a [facility] atypical melanocytic LABORATORY nevus which extends SERVICES to the edge of the biopsy specimen. If this is a smaller sampling of a larger lesion, the findings may not be used equipment sales representative of the lesion as a whole. Clinical correlation is essential. Clinical History Pigmented nevi with [facility] posterior torso LABORATORY SERVICES Gross Description A. Received in formalin labe lled with proper patient identification (initials T, J) and nevi posterior torso is a punch biopsy of dark brown macule (0.2 cm in diameter by 0.3 cm in thickness). The specimen is submitted intact in A1. [facility] 02/14/2020 9:35 LABORATORY SERVICES Scanned Images [facility] LABORATORY SERVICES Specimen Tissue - Skin (tissue) specimen (specime n) Performing Organization Address City/State/[facility] Code Phon e Number [facility] [address] [place] [address] SERVICES documented in this encounter Visit Diagnoses Diagnosis Encounter for other general examination documented in this encounter Care Teams Combat Control Manager Relationship Specialty Start Date End Date Tracie Murray APRN PCP - General 02/11/20 NA[facility] [address] [place] [address] documented as of this encounter
--- OUTSIDE RECORDS SUMMARY | 2022-02-08 00:51 | XMS_ITS | Encounter Summary ---
:1955 Author Organization [facility] Address [address] [place] [address] Care Team Providers Name Role Phone Barry Tidwell LUAN Primary Care Provider Encounter Details Date Type Department Care Team Description 03/11/2010 Results Only [facility] Veda Finley MD Laboratory Services - [address] [place] [address] [place] [address] Social History Tobacco Use Types Packs/Day Years Used Date Never Assessed Sex Assigned at Date Recorded Not on file documented as of this encounter Plan of Treatment Not on filedocumented as of this encounter Procedures Procedure Name Priority Date/Time Associated Diagnosis Comme nts SURGICAL PATHOLOGY Routine 03/11/2010 0:00 EDT Re sults for this procedure are i n the results section. documented in this encounter Results SURGICAL PATHOLOGY (03/11/2010 0:00 EDT) Pathology Report: SURGICAL PATHOLOGY REPORT ? [facility] Reports generated via electr Twyxt interface contain original data; ? LAB however they are lacking the format of the original report. ? Caution should be taken when reading/interpreting unformatted reports. ? Name: ? JOSSIE, LEONA J ? Accession #: ? [id number] ? : ? 1955 (Age: 54) ??F ? Collec t Date: ? 03/11/2010 ? Location: ? [facility] ? R eceive Date: ? 03/11/2010 ? Provider: VEDA TWIN MD ? Copy to: BARRY TIDWELL SOUS CHEF ? Final Pathologic Diagnosis: ? A. ?Endometrium , biopsy: ? 1. ?Simple endo metrial hyperplasia with no atypia. ??See comment. ? B. ?Endocervix, polyp, biopsy: ? 1. ?Benign endo cervical polyp (B2). ? 2. ? Benign endometrial polyp (B1). ? Comment: ? This case was reviewe d in the intradepartmental consultation conference. ?? (Dr. Prakash)/[facility] ? Document reviewed and electr onically signed by: ? ABDELMONEM ROSSY MD ? Report ??Date: 03/16/2010 15 :17 ? By the signature above, the attending physician certifies that he/she has ? personally conducted a gross and/or microscopic examination of the described ? specimens and rendered or co nfirmed the above diagnosis. ? Specimen(s) Received: ? A. ?Endometrial bx ? B. ? Endocervical polyp ? Clinical History: ? PMB; LMP: 10/2008 ? Gross Description: ? Received in formalin labelled TangPeter garciae and endometrial biopsy is a 2.5 x 2.0 x 0.2 cm aggrega te of fitzpatrick-red hemorrhagic tissue fragments. ??The ? specimen is filtered and ent irely submitted as (A). ? Received in formalin warren d Mariey, Leona and endocervical polyp are two pink-fitzpatrick irregular tissues, 1.1 x 1.0 x 0.4 cm and 2.0 x 1.0 x 0.7 cm, as well ?? as a 0.8 x 0.6 x 0.2 cm aggr egate of red-brown hemorrhagic tissue fragments ? admixed with mucus. ??The la rgest tissue is trisected and entirely submitted as ?? (B1). ??The smaller tissue i s bisected and entirely submitted as (B2) and the ? remaining fragments are enti rely submitted as (B3). ??(Chato Aggarwal)/sandra ? End of Report ? Specimen Performing Organization Address City/[facility]/ZIP Code Phon e Number [facility] [address] [place] [address] SERVICES [facility] [address] [place] [address] documented in this encounter Visit Diagnoses Not on filedocumented in this encounter Care Teams Pillowcase Turner Relationship Specialty Start Date End Date Barry Tidwell FNP PCP - General 02/07/09 02/10/20 [address] [place] [address] documented as of this encounter
--- OUTSIDE RECORDS SUMMARY | 2022-02-08 00:52 | XMS_ITS | Encounter Summary ---
:1955 Author Organization Health system Address [address] [place] [address] Care Team Providers Name Role Phone Unavailable Primary Care Provider Unavailable Encounter Details Date Type Department Care Team Description 02/05/2009 Orders Only [facility] Kelvin Dockery MD [address] [place] [address] [place], [place] [address] [phone] Social History Tobacco Use Types Packs/Day Years Used Date Never Assessed Sex Assigned at Date Recorded Not on file documented as of this encounter Plan of Treatment Not on filedocumented as of this encounter Procedures Procedure Name Priority Date/Time Associated Diagnosis Comme nts SURGICAL PATHOLOGY Routine 02/05/2009 0:00 EDT Re sults for this procedure are i n the results section. documented in this encounter Results SURGICAL PATHOLOGY (02/05/2009 0:00 EDT) Pathology SURGICAL PATHOLOGY REPORT ? [facility] Report: Reports generated via electr Fe3 Medical interface contain original data; ? LAB however they are lacking the format of the original report. ? Caution should be taken when reading/interpreting unformatted reports. ? Name: ? SALLS, LEONA J ? Accession #: ? [id number] ? : ? 1955 (Age: 53) ??F ? Collec t Date: ? 02/05/2009 ? Location: ? [facility] ? R eceive Date: ? 02/05/2009 ? Provider: KELVIN WALKO MD ? Copy to: BARRY VELIZ PAIL BAILER ? Final Pathologic Diagnosis: ? A. ?Stomach, an trum, biopsies: ? 1. ?Chronic act niesha gastritis. ? 2. ? Immunostaining for Helicobacter pylori is positive. ??See comment. ? B. ?Stomach, yao dy, biopsies: ? 1. ?Oxyntic-typ e mucosa with chronic active gastritis. ? C. ?Gastroesoph ageal junction, 40 cm, biopsies: ? 1. ?Squamocolum gita mucosa with chronic, focal acute inflammation and ? reactive epithelial changes. ? 2. ? Negative for intest inal metaplasia. ? 3. ? Negative for dyspla bright. ? Comment: ? Histologic sections o f the antrum and body biopsies (specimens A and B, ? respectively) were reviewed at the intradepartmental consultation conference. ?? Immunohistochemical staining was performed on this case to investigate the ? presence of H. Pylori. ??Pos itive and negative controls stained appropriately. ?? (Dr. Lynn)/tmg ? Block ?Antibody (Clone) ? Result ? A ?H. py dhara (polyclonal, [facility]) ? Positive for organisms ? NOTE: ??One or more of the [...] ? characteristics have been de termined by [facility]. ??This ? laboratory is certified unde r the Clinical Laboratory Improvement Amendments of 1988 (CLIA-88) as qualified to perform high complexity clinical laboratory ? testing. ? Document reviewed and electr onically signed by: ? Jonny Lynn, ? Report ??Date: 02/10/2009 16 :18 ? By the signature above, the attending physician certifies that he/she has ? personally conducted a gross and/or microscopic examination of the described ? specimens and rendered or co nfirmed the above diagnosis. ? Specimen(s) Received: ? A. ?Bx antrum ( #1) ? B. ? Bx body of stomach (#2) ? C. ? Bx EG junction 40 c m (#3) ? Clinical History: ? GERD, family hx esoph ageal cancer. ??C. ?Cruz's. ? Gross Description: ? Received in Hollande' s solution labelled Salls, Leona and 1 ??bx antrum are two biopsies measuring 0 .4 x 0.3 x 0.2 cm and 0.5 x 0.3 x 0.3 cm. ??The ? specimens are submitted inta ct as (A). ? Received in Li's solut ion labelled Salls, Leona and 2 ??bx body of ? stomach are two biopsies me asuring 0.4 x 0.4 x 0.2 cm each. ??The specimens are submitted intact as (B). ? Received in Li's solut ion labelled Alessia, Leona and 3 ??bx EG junction ?? 40 cm, ?Cruz's is a 0.3 x 0.2 x 0.2 cm biopsy. ??The specimen is submitted ?? intact as (C). ??(TATA Tessito re)/lgk ? End of Report ? Specimen Performing Organization Address City/State/ZIP Code Phon e Number [facility] [address] [place] [address] SERVICES [facility] [address] [place] [address] documented in this encounter Visit Diagnoses Not on filedocumented in this encounter
--- OUTSIDE RECORDS SUMMARY | 2022-02-08 00:52 | XMS_ITS | Encounter Summary ---
:1955 Author Organization [facility] Address [address] [place] [address] Care Team Providers Name Role Phone Barry Tidwell LUAN Primary Care Provider Encounter Details Date Type Department Care Team Description 07/31/2007 Results Only [facility] - Barry Rodríguez FNP conversion [address] [place] [address] [place], [place] [id number] [place] [phone] (Wo rk) Social History Tobacco Use Types Packs/Day Years Used Date Never Assessed Sex Assigned at Date Recorded Not on file documented as of this encounter Plan of Treatment Not on filedocumented as of this encounter Procedures Procedure Name Priority Date/Time Associated Diagnosis Comme nts CYTOPATHOLOGY Routine 07/31/2007 0:00 EST Results for this procedure are i n the results section . documented in this encounter Results CYTOPATHOLOGY (07/31/2007 0:00 EST) Pathology Report: CYTOPATHOLOGY REPORT [facility] Reports generated via electronic interface contain shilpa ginal data; however they are lacking the format of the original re port. Caution should be taken when reading/interpreting unfo rmatted reports. Name: ? LEONA SETHI ? Accession #: ? [id number] : ? 1955 (Age: 51) ??F ?Collect Date: ? /0 01/2008 Location: ? [facility] ? Receive Date : ? 08/02/2007 Provider: ?BARRY TIDWELL DENTAL SCHEDULER Copy to: ? [facility] [facility] ?[address] ?[place], [place] [address] ? Specimen/Source: ? ThinPrep Pap Test, Cervix/Endocervix, processed on [employer] IndiaPrep Imaging System, with manual evaluation Last Menstrual Period: ? Other: ? HPVA - HPV testing requested if ASC-US on the current ThinPrep Pap test. ? SPECIMEN ADEQUACY ? Satisfactory for Evaluation - transformation zone component present GENERAL CATEGORIZATION ? Negative for Intraepithelial Lesion or Malignan cy ? Document reviewed and electronically signed by: ? ISH Shepard(ASCP) ? Report Date: ??08/03/2007 14:57 End of Report Specimen Performing Organization Address City/State/ZIP Code Phon e Number [facility] [address] [place] [address] SERVICES [facility] [address] [place] [address] documented in this encounter Visit Diagnoses Not on filedocumented in this encounter Care Teams Service Line Bus Cleaner Relationship Specialty Start Date End Date Barry Tidwell FNP PCP - General 02/07/09 02/10/20 [address] [place], [place] [phone] documented as of this encounter
--- OUTSIDE RECORDS SUMMARY | 2022-02-08 00:52 | XMS_ITS | Encounter Summary ---
:1955 Author Organization [facility] Address [address] [place] [address] Care Team Providers Name Role Phone Barry Tidwell LUAN Primary Care Provider Encounter Details Date Type Department Care Team Description 04/26/2001 Results Only [facility] - Barry Rodríguez FNP conversion [address] [place], [place] [phone] [place] [phone] (Wo rk) Social History Tobacco Use Types Packs/Day Years Used Date Never Assessed Sex Assigned at Date Recorded Not on file documented as of this encounter Plan of Treatment Not on filedocumented as of this encounter Procedures Procedure Name Priority Date/Time Associated Diagnosis Comme nts CYTOPATHOLOGY Routine 04/26/2001 0:00 EDT Results for this procedure are i n the results section . documented in this encounter Results CYTOPATHOLOGY (04/26/2001 0:00 EDT) Pathology Report: CYTOPATHOLOGY REPORT [facility] Reports generated via electronic interface contain shilpa ginal data; however they are lacking the format of the original re port. Caution should be taken when reading/interpreting unfo rmatted reports. Name: ? LEONA BAIN ? Accession #: ? [id number] : ? 1955 (Age: 45) ??F ?Collect Date: ? 10/0 09/2000 Location: ? [facility] ? Receive Date : ? 04/28/2001 Provider: ?BARRY ROLAND Copy to: ? Specimen/Source: ?ThinPrep Pap Test, Cervix/ Endocervix Last Menstrual Period: ? 04/15/01 Previous Gynecologic Pathology: ? Yes: Inflamm only ? SPECIMEN ADEQUACY ? Satisfactory for evaluation. GENERAL CATEGORIZATION ? Within Normal Limits ? Document reviewed and electronically signed by: ? ISH Shepard(ASCP) ? Report Date: ??05/01/2001 11:02 End of Report Specimen Performing Organization Address City/State/ZIP Code Phon e Number [facility] [address] [place] [address] [facility] [address] [place] [address] documented in this encounter Visit Diagnoses Not on filedocumented in this encounter Care Teams Training And Development Head Relationship Specialty Start Date End Date Barry Tidwell FNP PCP - General 02/07/09 02/10/20 [address] [place], [place] [id number] documented as of this encounter
--- OUTSIDE RECORDS SUMMARY | 2022-02-08 00:52 | XMS_ITS | Encounter Summary ---
:[address] [facility] Address [address] [place] [address] Care Team Providers Name Role Phone Unavailable Primary Care Provider Unavailable Encounter Details Date Type Department Care Team Description 08/22/2008 Before PRISM Converted [facility] - Barry Tidwell FNP Visit (Maple) Maple conversion [address] [place], [place] [id number] [place] [id number] Social History Tobacco Use Types Packs/Day Years Used Date Never Assessed Sex Assigned at Date Recorded Not on file documented as of this encounter Plan of Treatment Not on filedocumented as of this encounter Procedures Procedure Name Priority Date/Time Associated Comments Diagnosis HPV DETECTION, HIGH Routine 08/22/2008 9:48 Resul ts for this RISK TYPES EST procedure are i n the results section. CYTOPATHOLOGY Routine 08/22/2008 0:00 Results for this EST procedure are i n the results section. documented in this encounter Results HUMAN PAPILLOMA VIRUS DNA TEST (08/22/2008 9:48 EST) Specimen Description Cervix, ThinPrep [facility] vial Result Negative for HPV [facility] types 16, 18, 31, 33, 35, 39, 45, 51, 52, 56, 58, 59, and 68. Report Status Final [facility] 09/05/2008 Specimen Performing Organization Address City/State/ZIP Code Phon e Number [facility] [address] [place] [address] SERVICES [facility] [address] [place] [address] CYTOPATHOLOGY (08/22/2008 0:00 EST) Pathology Report: CYTOPATHOLOGY REPORT ? [facility] ? LAB Reports generated via electr onic interface contain original data; ? however they are lacking the format of the original report. ? Caution should be taken when reading/interpreting unformatted reports. ? Name: ? SALLS, LEONA J ? Accession #: ? [id number] ? : ? 1955 (Age: 53) ??F ?Collect Date: ? 08/22/2008 ? Location: ? [facility] ? Receive Date: ? 08/26/2008 ? Provider: ?BARRY HES S PARKING ASSISTANT ? Copy to: ? Specimen/Source: ? Pap Test, Source Not Provided, ThinPrep Imaging System ?? with manual evaluation ? Last Menstrual Period: ? 1/9/09 ? Other: ? Additional clinical informat ion: Skipped 4 months before onset of recent period HPVDX - HPV testing requeste d regardless of diagnosis on current ThinPrep Pap ?? test. ? SPECIMEN ADEQUACY ? Satisfactory for Eval uation ? - transformation zone compon ent present ? GENERAL CATEGORIZATION ? Negative for Intraepi thelial Lesion or Malignancy ? Document reviewed and electr onically signed by: ? Loren Verville,CT(ASCP) ? Report Date: ??02/06/ 2009 11:20 ? End of Report ? Specimen Performing Organization Address City/State/ZIP Code Phon e Number [facility] [address] [place] [phone] SERVICES [facility] [address] [place] [address] documented in this encounter Visit Diagnoses Not on filedocumented in this encounter
--- OUTSIDE RECORDS SUMMARY | 2022-02-08 00:52 | XMS_ITS | Encounter Summary ---
:1955 Author Organization [facility] Address [address] [place] [address] Care Team Providers Name Role Phone Barry Tidwell LUAN Primary Care Provider Encounter Details Date Type Department Care Team Description 04/19/2005 Results Only [facility] - Barry Rodríguez FNP conversion [address] [place] [address] [place], [place] [phone] [place] [phone] (Wo rk) Social History Tobacco Use Types Packs/Day Years Used Date Never Assessed Sex Assigned at Date Recorded Not on file documented as of this encounter Plan of Treatment Not on filedocumented as of this encounter Procedures Procedure Name Priority Date/Time Associated Diagnosis Comme nts CYTOPATHOLOGY Routine 04/19/2005 0:00 EDT Results for this procedure are i n the results section . documented in this encounter Results CYTOPATHOLOGY (04/19/2005 0:00 EDT) Pathology Report: CYTOPATHOLOGY REPORT [facility] Reports generated via electronic interface contain shilpa ginal data; however they are lacking the format of the original re port. Caution should be taken when reading/interpreting unfo rmatted reports. Name: ? LEONA SETHI ? Accession #: ? [id number] : ? 1955 (Age: 49) ??F ?Collect Date: ? 03/26 Location: ? [facility] ? Receive Date : ? 04/21/2005 Provider: ?BARRY ROLAND Copy to: ? Specimen/Source: ? ThinPrep Pap Test, Cervix/Endocervix, processed on [employer] ThinPrep Imaging System, with manual evaluation Last Menstrual Period: ? 04/08/05 Other: ? Additional clinical information: Cervical polyp remove d HPVA - HPV testing requested if ASC-US on the current ThinPrep Pap test. ? SPECIMEN ADEQUACY ? Satisfactory for Evaluation - transformation zone component present GENERAL CATEGORIZATION ? Negative for Intraepithelial Lesion or Malignan cy INTERPRETATION ? Reactive cellular ailyn nges associated with inflammation present (includes repair). ? Document reviewed and electronically signed by: ? NUVIA HONG MD ? Report Date: ??04/28/2005 16:56 End of Report Specimen Performing Organization Address City/State/ZIP Code Phon e Number [facility] [address] [place] [address] SERVICES [facility] [address] [place] [address] documented in this encounter Visit Diagnoses Not on filedocumented in this encounter Care Teams Double Bass Player Relationship Specialty Start Date End Date Barry Tidwell FNP PCP - General 02/07/09 02/10/20 [address] [place], [place] [address] documented as of this encounter
--- OUTSIDE RECORDS SUMMARY | 2022-02-08 00:52 | XMS_ITS | Encounter Summary ---
:1955 Author Organization [facility] Address [address] [place] [address] Care Team Providers Name Role Phone Barry Tidwell LUAN Primary Care Provider Encounter Details Date Type Department Care Team Description 01/14/[address] [facility] - Barry Rodríguez FNP conversion [address] [address] [place], [place] [phone] [place] [phone] (Wo rk) Social History Tobacco Use Types Packs/Day Years Used Date Never Assessed Sex Assigned at Date Recorded Not on file documented as of this encounter Plan of Treatment Not on filedocumented as of this encounter Procedures Procedure Name Priority Date/Time Associated Diagnosis Comme nts CYTOPATHOLOGY Routine 01/14/2004 0:00 EDT Results for this procedure are i n the results section . documented in this encounter Results CYTOPATHOLOGY (01/14/2004 0:00 EDT) Pathology Report: CYTOPATHOLOGY REPORT [facility] Reports generated via electronic interface contain shilpa ginal data; however they are lacking the format of the original re port. Caution should be taken when reading/interpreting unfo rmatted reports. Name: ? LEONA SETHI ? Accession #: ? [id number] : ? 1955 (Age: 48) ??F ?Collect Date: ? 12/24 Location: ? [facility] ? Receive Date : ? 01/16/2004 Provider: ?BARRY ROLAND Copy to: ? Specimen/Source: ?ThinPrep Pap Test, Cervix/ Endocervix Last Menstrual Period: ? 01/03/2004 Other: ? HPVA - HPV testing requested if ASC-US on the current ThinPrep Pap test. ? SPECIMEN ADEQUACY ? Satisfactory for Evaluation - transformation zone component present GENERAL CATEGORIZATION ? Negative for Intraepithelial Lesion or Malignan cy ? Document reviewed and electronically signed by: ? ISH Mendoza(ASCP) ? Report Date: ??01/21/2004 13:23 End of Report Specimen Performing Organization Address City/State/ZIP Code Phon e Number [facility] [address] [place] [address] SERVICES [facility] [address] [place] [address] documented in this encounter Visit Diagnoses Not on filedocumented in this encounter Care Teams Cotton Grower Relationship Specialty Start Date End Date Barry Tidwell FNP PCP - General 02/07/09 02/10/20 [address] [place] [address] documented as of this encounter
--- OUTSIDE RECORDS SUMMARY | 2022-02-08 00:52 | XMS_ITS | Encounter Summary ---
:1955 Author Organization Address [address] [place] [address] Care Team Providers Name Role Phone Barry Tdiwell LUAN Primary Care Provider Encounter Details Date Type Department Care Team Description 05/02/2006 Results Only [facility] - Barry Rodríguez FNP conversion [address] [place], [place] [address] [place] [phone] (Wo rk) Social History Tobacco Use Types Packs/Day Years Used Date Never Assessed Sex Assigned at Date Recorded Not on file documented as of this encounter Plan of Treatment Not on filedocumented as of this encounter Procedures Procedure Name Priority Date/Time Associated Diagnosis Comme nts CYTOPATHOLOGY Routine 05/02/2006 0:00 EDT Results for this procedure are i n the results section . documented in this encounter Results CYTOPATHOLOGY (05/02/2006 0:00 EDT) Pathology Report: CYTOPATHOLOGY REPORT [facility] Reports generated via electronic interface contain shilpa ginal data; however they are lacking the format of the original re port. Caution should be taken when reading/interpreting unfo rmatted reports. Name: ? LEONA SETHI ? Accession #: ? [id number] : ? 1955 (Age: 50) ??F ?Collect Date: ? 10/0 03/2006 Location: ? [facility] ? Receive Date : ? 05/04/2006 Provider: ?BARRY ROLAND Copy to: ? [facility] ?[address] ?[place], [place] [address] ? Specimen/Source: ? ThinPrep Pap Test, Cervix/Endocervix, processed on [employer] ThinPrep Imaging System, with manual evaluation Last Menstrual Period: ? 04/24/06 Other: ? Additional clinical information: Nabothian cysts on ce rvix HPVA - HPV testing requested if ASC-US on the current ThinPrep Pap test. ? SPECIMEN ADEQUACY ? Satisfactory for Evaluation - transformation zone component present GENERAL CATEGORIZATION ? Negative for Intraepithelial Lesion or Malignan cy ? Document reviewed and electronically signed by: ? ISH Bhakta(ASCP)(IAC) ? Report Date: ??05/06/2006 11:18 End of Report Specimen Performing Organization Address City/State/ZIP Code Phon e Number [facility] [address] [place] [address] SERVICES [facility] [address] [place] [address] documented in this encounter Visit Diagnoses Not on filedocumented in this encounter Care Teams Broadcast Field Supervisor Relationship Specialty Start Date End Date Barry Tidwell FNP PCP - General 02/07/09 02/10/20 [address] [place] [address] documented as of this encounter
--- NOTE | 2022-02-08 09:39 | DI.RAD_ITS ---
Exam(s) XR HEEL RT OS CALCIS EXAM: XR HEEL RT OS CALCIS CLINICAL HISTORY: HEEL PAIN, M79.673. TECHNIQUE: 2D digital imaging was performed. Two views. COMPARISON: CR XR ANKLE RT COMPLETE from 12/11/2019 FINDINGS: BONES: No acute fracture is present. No bony destructive lesion is seen. Small heel spurs. Ossicle adjacent to the calcaneal cuboid joint. JOINTS: No dislocation present. Spurring dorsal talonavicular joint. SOFT TISSUE: Prominent calcification in the Achilles tendon. IMPRESSION: Prominent calcification in the Achilles tendon. Small heel spurs DATA REPOSITORY: RADIATION DOSE DELIVERED:
--- NOTE | 2022-02-08 09:39 | DI.RAD_ITS ---
Exam(s) XR HEEL LT OS CALCIS EXAM: XR HEEL LT OS CALCIS CLINICAL HISTORY: HEEL PAIN, M79.673. TECHNIQUE: 2D digital imaging was performed. COMPARISON: CR XR HEEL RT OS CALCIS from 02/08/2022 FINDINGS: BONES: No acute fracture is present. No bony destructive lesion is seen. There is spurring at the Ac hilles insertion on the calcaneus as well as calcification in the distal Achilles tendon. Ossicles are noted adjacent to the distal aspect of the calcaneus laterally. JOINTS: No dislocation present. No significant joint space narrowing. IMPRESSION: Heel spurs and calcification in the distal Achilles tendon. DATA REPOSITORY: RADIATION DOSE DELIVERED:
== END ==
PROVIDERS: PCP Nurse Practitioner Family; Visit Provider Nurse Practitioner Family
DX: M65.871 Other synovitis and tenosynovitis, right ankle and foot (principal); M65.872 Other synovitis and tenosynovitis, left ankle and foot; M77.9 Enthesopathy, unspecified
CPT/HCPCS: 73650

== ENCOUNTER 2022-04-29 20:46 | Outpatient (REF) | payer MEDICARE, SELFPAY ==
[2022-04-29 16:37] LABS: ALT 26 U/L (14-59); AST 19 U/L (15-37); Albumin 3.9 g/dL (3.4-5.0); Alkaline Phosphatase 115 U/L (46-116); Anion Gap 10.4 mmol/L (3-11); BUN 23 mg/dL (7-18); Bilirubin, Total 0.2 mg/dL (0.2-1.0); CO2 27.6 mmol/L (21.0-32.0); CREATININE 0.9 mg/dL (0.55-1.02); Calcium 9.5 mg/dL (8.5-10.1); Chloride 102 mmol/L (98-107); Estimated GFR 70.51 (mL/min/1.73m2); Glucose 96 mg/dL (74-106); Potassium 4.7 mmol/L (3.5-5.1); Sodium 140 mmol/L (136-145); Total Protein 7.5 g/dL (6.4-8.2); Vitamin B12 1619 pg/mL (193-986)
== END 2022-04-29 20:47 | disposition home or self-care (01) ==
LOC: NCHCN 20:46
PROVIDERS: PCP Nurse Practitioner Family; Visit Provider Nurse Practitioner Family
DX: K21.9 Gastro-esophageal reflux disease without esophagitis (principal); F41.8 Other specified anxiety disorders; E83.42 Hypomagnesemia; F03.90 Unspecified dementia, unspecified severity, without behavioral disturbance, psychotic disturbance, mood disturbance, and anxiety; R60.0 Localized edema; B00.1 Herpesviral vesicular dermatitis; J30.9 Allergic rhinitis, unspecified
CPT/HCPCS: 80053; 82607; 83735

== ENCOUNTER → 2022-06-09 02:24 | Outpatient (CLI) | payer MEDICARE, SELFPAY ==
--- NOTE | 2022-06-09 | DI.MAMMO_ITS ---
Exam(s) MAMMO SCREENING EXAM: MAMMO SCREENING CLINICAL HISTORY: SCREENING, Z12.31 TECHNIQUE: Mammograms were interpreted according to the usual protocol including computer analysis w Mimvi CAD system, tomosynthesis and C-view imaging. COMPARISON: 2012 through 2020 FINDINGS: The breasts are composed of scattered fibroglandular densities, Breast Density category B. No suspicious masses or suspicious microcalcifications are seen. No skin thickening or abnormal axillary lymph nodes are seen. There has been no significant change from prior exams. IMPRESSION: BI-RADS Category 1, Negative mammogram Yearly screening mammography is recommended. Breast Density - Category B, scattered fibroglandular densities. A negative radiographic report should not delay biopsy if a dominant or clinically suspicious mass is present. Up to ten percent of cancers are not identified on mammography. A negative report may reinforce clinical impression. Adenosis and dense breasts may obscure an underlying neoplasm. False positive reports average 6 to 10%. Patient will receive a letter notifying them of these results.
== END ==
PROVIDERS: PCP Nurse Practitioner Family; Visit Provider Nurse Practitioner Family
DX: Z12.31 Encounter for screening mammogram for malignant neoplasm of breast (principal)
CPT/HCPCS: 77063; 77067

== ENCOUNTER 2022-08-16 01:51 | Outpatient (CLI) | payer MEDICARE, SELFPAY ==
--- NOTE | 2022-08-16 | DI.MAMMO_ITS ---
Exam(s) MG MAMMO DIAGNOSTIC UNI US BREAST RT LIMITED EXAM: MG MAMMO DIAGNOSTIC UNI CLINICAL HISTORY: RT BREAST PAIN N64.4. TECHNIQUE: Right craniocaudal and mediolateral oblique Full Field Digital Mammography views with Com puter Aided Diagnosis followed by Tomosynthesis and right breast ultrasound. COMPARISON: MG Screening Bilat Mammo from 02/11/2015 MG Screening Bilat Mammo from 03/02/2016 MG Screening Bilat Mammo from 03/03/2017 MG Screening Bilat Mammo from 03/06/2018 MG MG mammo screening from 03/13/2019 MG MG MAMMO SCREENING from 04/01/2020 MG MG MAMMO SCREENING from 04/21/2021 MG MG MAMMO SCREENING from 06/09/2022 FINDINGS: Mammography/Tomosynthesis: Masses/Architectural Distortion: None seen. Microcalcifictions: No suspicious pleomorphic-type are seen. Skin Thickening/Nipple Retraction: None. Right breast US: Echotexture: Normal appearance of the glandular tissue. Shadowing: No suspicious foci. Cyst: None. Solid lesions: None seen. Ductal dilation: Mild ductal dilatation in the subareolar region. No debris or focal intraductal mas s. IMPRESSION: 1. No evidence of malignancy is noted. 2. Unless there is more urgent need, follow-up screening mammography is recommended, as per [place] [employer] guidelines. 3. The findings were discussed with the patient on the date of the examination. BI-RADS Category 2 - Benign Findings Breast Density - Category B - Scattered areas of fibroglandular density A negative radiographic report should not delay biopsy if a dominant or clinically suspicious mass is present. Up to ten percent of cancers are not identified on mammography. A negative report may reinforce clinical impression. Adenosis and dense breasts may obscure an underlying neoplasm. False positive reports average 6 to 10%. Patient will receive a letter notifying them of these results.
== END 2022-08-16 02:11 ==
LOC: DI 01:51
PROVIDERS: PCP Nurse Practitioner Family; Visit Provider Family Medicine
DX: N64.4 Mastodynia (principal); R92.8 Other abnormal and inconclusive findings on diagnostic imaging of breast
CPT/HCPCS: 76642; 77061; 77065; G0279

== ENCOUNTER 2022-10-01 17:32 | Emergency (ER) | payer MEDICARE, SELFPAY ==
[2022-10-01] VITALS (8 sets, daily range): BP systolic 148–217; BP diastolic 75–90; PULSE 72–90; RESP 14–22; TEMP 36.8; O2SAT 94–99
--- NOTE | 2022-10-01 17:30 | DI.RAD_ITS ---
Exam(s) XR CHEST 2V PA LATERAL EXAM: XR CHEST 2V PA LATERAL CLINICAL HISTORY: shortness of breath TECHNIQUE: 2D digital imaging was performed. COMPARISON: CR,RF RF barium swallow from 01/11/2019 FINDINGS: HEART: Normal size. Aorta: Not dilated. PULMONARY VASCULATURE: Normal. LUNGS: Clear. PLEURAL SPACE: No pleural effusion or pneumothorax. BONE:Unremarkable for age. IMPRESSION: No acute abnormality. DATA REPOSITORY: RADIATION DOSE DELIVERED:
--- NOTE | 2022-10-01 17:30 | RT.EKG_ITS ---
APPROVED REPORT Exam: Resting ECG Reason for Exam: Dyspnea Patient Location: E HR:88 bpm ECG Measurements Heart Rate 88 AXIS IA [id number] P [id number] QRSd 87 QRS -13 QT 371 T 73 QTc 449 Conclusion Atrial fibrillation...V-rate 86- 89, irreg A-activity Low voltage, precordial leads...precordial leads <1.0mV Probable LVH with secondary repol abnrm...multiple LVH criteria motion artifact, rhythm strip appears sinus, no stemi
--- NOTE | 2022-10-01 17:45 | RT.EKG_ITS ---
APPROVED REPORT Exam: Resting ECG Reason for Exam: Repeat request by Provider Patient Location: E HR:83 bpm ECG Measurements Heart Rate 83 AXIS RI 178 P 14 QRSd 97 QRS -15 QT 408 T 48 QTc 480 Conclusion Sinus rhythm...normal P axis, V-rate 60- 99
--- NOTE | 2022-10-01 17:46 | ED.GENADUL_ITS ---
Discharge Plan Disposition Patient Disposition: Home Condition: Stable Discharge Details Clinical Impression: Chest pain, atypical Primary Care Provider: Tracie Murray ED Provider: Sugar Bauer Home Meds and New Rx's Prescriptions: New famotidine 20 mg tablet 20 mg PO BID Qty: 60 0RF Continued Saccharomyces boulardii [Daily Probiotic (S. boulardii)] 250 mg capsule 250 mg PO BID vitamin R30-hvasb acid 1-0.8 mg tablet PO Patient Comments: pt does not know if she takes this med acyclovir 400 mg tablet 400 mg PO DAILY meloxicam 7.5 mg tablet 7.5 mg PO DAILY MDD 7.5 Qty: 30 0RF Patient Comments: pt stated does not take this med Rx Instructions: one pill daily cholecalciferol (vit D3)(bulk) 1,000 GM liquid 100 gm Miscellaneous DAILY omeprazole 40 mg capsule,delayed release(DR/EC) 20 mg PO DAILY docusate sodium [Colace] 100 MG capsule 100 mg PO BID Rx Instructions: 10/11/18 none lately simvastatin 40 mg Tablet 40 mg PO HS buspirone 15 mg Tablet 15 mg PO BID trazodone 50 mg Tablet 50 - 100 mg PO HS ascorbic acid (vitamin C) [Vitamin C] 1,000 mg Tablet 1 g PO DAILY Discharge Instructions Instructions: Chest Pain (ED) Additional Instructions: Monitor your blood pressure daily and bring log to your follow-up appointment. Take your medications as prescribed. I have added famotidine which may improve your symptoms if they are related to your GERD. Please see your primary care provider as soon as possible for any additional outpatient testing that she feels is warranted. Return here sooner for new or worsening symptoms Referrals: Tracie Murray [Primary Care Provider] - (Call first thing Tuesday morning for follow-up appointment) Medical Decision Making 67-year-old female patient who presents with shortness of breath back pain radiating around both breasts. She has had similar history to this in the past with an extensive cardiac history that was unremarkable according to her. She has had these symptoms intermittently for 1 week. She has had these current symptoms since noon. Minus an elevated blood pressure her vital signs are stable and oxygenating 100% on room air. Her EKG is read as atrial fibrillation but I disagree and feel it sinus with artifact in some of her leads due to her tremors. An IV will be established. Routine labs including CBC CMP troponin D- dimer and BNP have been sent. Differentials include hypertensive crisis, ACS, anxiety, pneumonia/viral illness, less likely aortic dissection or pulmonary embolism. Chest x-ray is pending will provide nitroglycerin in hopes to improve blood pressure and alleviate symptoms. Doubt ACS since she has had her pain since noon and intermittently all week so we will hold off on aspirin at this time. Labs are reviewed and potassium is 3.3 which is repleted with 40 mEq p.o Blood pressure now 140/80 and reports symptoms have essentially subsided. We will give her a GI cocktail to see if this helps resolve the symptoms complet emilie. Her D-dimer age corrected is within normal limit for the patient at 670. She has no history of DVT no unilateral leg swelling no recent travel. No CAT scan for PE indicated. She remains in a normal sinus rhythm with a heart rate of [address] she has [address] segment changes on her EKG. Her troponin is less than 50 after having over 4 hours of constant symptoms which is not consistent with acute coronary syndrome. There is no indication to repeat her troponin at this point. Hemodynamically she is stable feels improved and is safe for discharge to home. We will add famotidine 20 mg p.o. twice daily and she should follow-up with her primary care provider next week for additional outpatient cardiology evaluation as warranted based on PCP recommendations. She was advised to return here sooner for new or worsening symptoms. She was also advised to monitor her blood pressure daily until her follow-up appointment and to bring the log to the follow-up appointment. There is no evidence of endorgan consistent with hypertensive emergency. Will defer any treatment for blood pressure to her PCP based on her readings. Lab Data Lab results reviewed: Yes I reviewed the patient's lab results. Lab results narrative: Laboratory Results - last 24 hr 10/01/22 10/01/22 10/01/22 17:46 17:46 17:46 WBC 9.92 RBC 4.71 Hgb 13.7 Hct 40.2 MCV 85 MCH 29.1 MCHC 34.1 RDW 12.9 Plt Count 243 MPV 9.5 Immature Gran % 0.2 Neutrophils % 46.9 Lymphocytes % 42.4 Monocytes % 8.8 Eosinophils % 1.2 Basophils % 0.5 Nucleated RBC % 0.0 Absolute Neutrophils 4.65 Absolute Lymphocytes 4.21 H Absolute Monocytes 0.87 H Absolute Eosinophils 0.12 Absolute Basophils 0.05 D-Dimer Sodium 142 Potassium 3.4 L Chloride 103 Carbon Dioxide 26.5 Anion Gap 12.5 H BUN 22 H Creatinine 1.1 H Est GFR (CKD-EPI 2020) 55.07 Glucose 119 H Calcium 9.7 Magnesium 1.9 Total Bilirubin 0.2 AST 14 L ALT 20 Alkaline Phosphatase 128 H Troponin I < 50 NT-Pro-B Natriuret Pep 49 Total Protein 8.0 Albumin 4.0 10/01/22 17:57 WBC RBC Hgb Hct MCV MCH MCHC RDW Plt Count MPV Immature Gran % Neutrophils % Lymphocytes % Monocytes % Eosinophils % Basophils % Nucleated RBC % Absolute Neutrophils Absolute Lymphocytes Absolute Monocytes Absolute Eosinophils Absolute Basophils D-Dimer 670 H Sodium Potassium Chloride Carbon Dioxide Anion Gap BUN Creatinine Est GFR (CKD-EPI 2020) Glucose Calcium Magnesium Total Bilirubin AST ALT Alkaline Phosphatase Troponin I NT-Pro-B Natriuret Pep Total Protein Albumin HPI General Date/Time Provider Initiated Documentation: 10/01/22 17:34 . Limitations to Documentation: no limitations . Information obtained by: patient . HPI Narrative: This is a 67-year-old female patient with a history of GERD and anxiety who presents to the emergency department after being referred first to urgent care for back pain and shortness of breath that she has had for 1 week she reports the pain is intermittent. She reports that this episode has been present since noon time. She states it is worse when she lays on her back. She reports the pain is mid back radiating like a band around both sides. She states that she has had a similar episode in the past with a negative cardiac work-up. She denies any fever or recent illness she has had no cough. No sick contacts with similar symptoms Related Data Home Medications Medication Instructions Recorded Confirmed cholecalciferol (vit D3)(bulk) 1 100 gm miscellaneous DAILY 02/23/16 10/01/22 million unit/gram liquid docusate sodium 100 mg capsule 100 mg PO BID 11/24/16 10/01/22 (Colace) buspirone 15 mg tablet 15 mg PO BID 10/15/18 10/01/22 simvastatin 40 mg tablet 40 mg PO HS 10/15/18 10/01/22 trazodone 50 mg tablet 50 - 100 mg PO HS 10/19/18 10/01/22 omeprazole 40 mg capsule,delayed 20 mg PO DAILY 05/15/19 10/01/22 release Saccharomyces boulardii 250 mg 250 mg PO BID 07/02/19 10/01/22 capsule (Daily Probiotic (S. boulardii)) ascorbic acid (vitamin C) 1,000 mg 1 g PO DAILY 05/30/20 10/01/22 tablet (Vitamin C) acyclovir 400 mg tablet 400 mg PO DAILY 04/06/22 10/01/22 vitamin B12 1 mg-folic acid 0.8 mg tab PO 04/06/22 tablet meloxicam 7.5 mg tablet 7.5 mg PO DAILY foot pain #30 tabs 04/08/22 famotidine 20 mg tablet 20 mg PO BID #60 tabs 10/01/22 Previous Rx's Medication Instructions Recorded meloxicam 7.5 mg tablet 7.5 mg PO DAILY foot pain #30 tabs 04/08/22 famotidine 20 mg tablet 20 mg PO BID #60 tabs 10/01/22 Allergies Allergy/AdvReac Type Severity Reaction Status Date / Time sertraline [From Zoloft] Allergy Intermediate shakes Verified 10/01/22 19:24 clonazepam AdvReac Intermediate Nausea Unverified 10/01/22 19:24 General Stated Complaint: SOB ANNE MARIE: 3 Review of Systems All systems reviewed & are unremarkable except as noted in HPI and below Constitutional Constitutional: Reports system reviewed and no additional complaints, except as documented PFSH All Active Problems (Updated 10/01/22 @ 19:12 by Sugar Bauer NP) Chest pain, atypical (Acute) Equinus contracture of ankle (Acute) Achilles tendinitis of both lower extremities (Acute) Endometrial stripe increased (Acute) GERD (gastroesophageal reflux disease) (Chronic) Anxiety disorder (Acute) Hiatal hernia (Acute 07/12/16) Chronic GERD (Acute 07/12/16) Medical History (Updated 10/01/22 @ 19:12 by Sugar Bauer NP) Abdominal pain Acute appendicitis with generalized peritonitis Anxiety Arthralgia Chest heaviness Constipation Cough Depression Discharge planning issues DVT prophylaxis Dyspnea Elevated troponin Encounter for colorectal cancer screening GERD (gastroesophageal reflux disease) Globus sensation (07/12/16) H. pylori infection Hiatal hernia (02/23/16) Hypercholesteremia Hypertensive urgency Hypomagnesemia Insomnia Intractable nausea and vomiting Menopause Overweight Skin tag (06/05/13) Thoracic spine pain Surgical History Appendectomy (11/25/16) EGD - IV Sedation (02/23/16) Dr Maryellen Swann, repeat 10 yrs H/O colonoscopy (06/23/18) dr owusu, no abnormalities, repeat 10 years Family History Other Esophageal cancer Heart disease Stroke Social History (Updated 04/06/22 @ 10:36 by Juliann Wheeler RN) Smoking/Tobacco Use Status: Never Smoking risk assessment performed?: Yes Alcohol Intake: never Drug use: Never Details: No marijuana use x 1yr 04/06/22. ALEK Vieira usually smokes marijuana every day, but hasn't been due to illness. although, she did try it to see if it would help with the nausea. Household members: other Details: Number of Children: 3 current occupation: Retired. What is your relationship status?: Panel score (0-1 are the most socially isolated patients): 0 Do you feel safe at home: Yes Do you feel safe in your relationship?: Yes History History 3 Para 2 Hx # Term Pregnancies 3 Multiple births Hx # Pregnancies Ectopic pregnancies AB induced Hx Number of Living Children AB spontaneous Exam Narrative Exam Narrative: Extremely anxious and tremulous female of stated age in moderate distress. Her head is atraumatic oral mucosa is moist neck is supple with no JVD cardiovascular regular rate and rhythm appears to be sinus rhythm but some artifact and some of the leads and EKG reading A-fib but again I think it sinus rhythm we will repeat this when she stops her tremors. Her respirations are even and unlabored she is satting at 100% on room air. Her abdomen is benign she has bilateral lower extremity edema which she states is at her baseline. Skin with no rashes or lesions hypertensive with a systolic blood pressure of 200 Const General: anxious HENMT Mouth: oral mucosae normal Resp Effort & Inspection: normal respiratory effort Cardio Rate: regular rate Rhythm: regular rhythm Heart Sounds: no murmurs Course Vital Signs Vital signs: Vital Signs Temperature 36.8 C 10/01/22 17:39 Pulse 88 10/01/22 17:39 Respiratory Rate 10/01/22 17:39 Blood Pressure 217/90 H 10/01/22 17:39 Pulse Oximetry 99 10/01/22 17:39 Temperature 36.8 C 10/01/22 17:39 Temperature Source Oral 10/01/22 17:39 Pulse 88 10/01/22 17:39 Respiratory Rate 10/01/22 17:39 Blood Pressure 217/90 H 10/01/22 17:39 Pulse Oximetry 99 10/01/22 17:39 Oxygen Delivery Method Room Air 10/01/22 17:39 Oxygen Flow Rate 0 10/01/22 17:39 Pain Level 5 10/01/22 17:39
[2022-10-01 17:52] LABS: Abs Immature Grans 0.02 10^3/uL (0.0-0.06); Absolute Basophil Count 0.05 10^3/uL (0.0-0.2); Absolute Eosinophil Count 0.12 10^3/uL (0.0-0.7); Absolute Lymphocyte Count 4.21 10^3/uL (1.2-3.4); Absolute Monocyte Count 0.87 10^3/uL (0.1-0.8); Absolute Neutrophil Count 4.65 10^3/uL (1.2-6.7); Basophils % 0.5; Eosinophils % 1.2; HCT 40.2 % (36.0-46.0); HGB 13.7 g/dL (11.2-15.7); Immature Grans % 0.2; Lymphocytes % 42.4; MCH 29.1 pg (27.0-33.0); MCHC 34.1 % (32.0-36.0); MCV 85 fL (80-95); MPV 9.5 fL (8.0-11.0); Monocytes % 8.8; Neutrophils % 46.9; Platelet Count 243 10^3/uL (130-400); RBC 4.71 10^6/uL (3.93-5.22); RDW 12.9 % (11.7-14.6); RDW-SD 39.8 fL; WBC 9.92 10^3/uL (4.4-10.8)
[2022-10-01 18:08] LABS: ALT 20 U/L (14-59); AST 14 U/L (15-37); Alkaline Phosphatase 128 U/L (46-116); Anion Gap 12.5 mmol/L (3-11); BUN 22 mg/dL (7-18); Bilirubin, Total 0.2 mg/dL (0.2-1.0); CO2 26.5 mmol/L (21.0-32.0); CREATININE 1.1 mg/dL (0.55-1.02); Calcium 9.7 mg/dL (8.5-10.1); Chloride 103 mmol/L (98-107); Estimated GFR 55.07 (mL/min/1.73m2); Glucose 119 mg/dL (74-106); Potassium 3.4 mmol/L (3.5-5.1); Sodium 142 mmol/L (136-145)
[2022-10-01 18:14] LABS: Magnesium 1.9 mg/dL (1.8-2.4); NT-proBNP 49 pg/mL (<300); Troponin I < 50 ng/L (<or=60)
[2022-10-01] MEDS: Acetaminophen 500 MG TAB 1000 MG PO (18:33)
[2022-10-01] MEDS: Potassium Chloride 20 MEQ TABCR 40 MEQ PO (18:33)
[2022-10-01] MEDS: nitroGLYcerin 0.4 MG TAB SL (18:35)
--- NOTE | 2022-10-01 18:36 | DI.VRAD_ITS ---
PROCEDURE INFORMATION: Exam: XR Chest Exam date and time: 10/01/2022 6:13 PM Age: 67 years old Clinical indication: Shortness of breath; Patient HX: SOB TECHNIQUE: Imaging protocol: Radiologic exam of the chest. Views: 2 views. COMPARISON: CR XR CHEST 2V PA LATERAL 10/19/2018 4:34 PM FINDINGS: Lungs: Nonspecific bilateral moderate hyperinflation could reflect COPD/emphysema. Differential diagnosis of air trapping from upper respiratory infection or reactive airway disease. No consolidation. Pleural spaces: Unremarkable. No pleural effusion. No pneumothorax. Heart/Mediastinum: Unremarkable. No cardiomegaly. Bones/joints: Unremarkable. IMPRESSION: 1. Hyperinflation. 2. No infiltrates or edema. 3. No pleural effusion. Dictated and Authenticated by: Jon Cali MD. Ordering:ANNIE Wooten MD
[2022-10-01 18:47] LABS: D-Dimer 670 ng/mlFEU (<500)
== END 2022-10-01 19:48 | disposition home or self-care (01) ==
PROVIDERS: Emergency Provider Nurse Practitioner Acute Care; PCP Nurse Practitioner Family
DX: R07.89 Other chest pain (principal); R06.02 Shortness of breath; M54.9 Dorsalgia, unspecified; N64.4 Mastodynia; R25.1 Tremor, unspecified
CPT/HCPCS: 80053; 93005; 99283; 71046; 83735; 83880; 84484; 85025; 85379; 93010

== ENCOUNTER 2022-10-05 09:50 | Outpatient (REF) | payer MEDICARE, SELFPAY ==
[2022-10-05 15:02] LABS: Iron 80 ug/dL (50-170); Total Iron Binding Capacity 318 ug/dL (250-450); Transferrin Sat 25 % (15-50)
[2022-10-05 15:28] LABS: Anion Gap 12.1 mmol/L (3-11); BUN 17 mg/dL (7-18); CO2 24.9 mmol/L (21.0-32.0); Calcium 9.7 mg/dL (8.5-10.1); Chloride 105 mmol/L (98-107); Estimated GFR 61.75 (mL/min/1.73m2); Ferritin 46 ng/mL (8-252); Glucose 109 mg/dL (74-106); Potassium 4.3 mmol/L (3.5-5.1); Sodium 142 mmol/L (136-145); TSH (W/Ref FT4) 3.07 uIU/mL (0.36-3.74)
== END 2022-10-05 09:51 | disposition home or self-care (01) ==
LOC: NCHCN 09:50
PROVIDERS: PCP Nurse Practitioner Family; Visit Provider Nurse Practitioner Family
DX: R07.9 Chest pain, unspecified (principal); R06.02 Shortness of breath; F41.8 Other specified anxiety disorders; K76.89 Other specified diseases of liver; Z87.19 Personal history of other diseases of the digestive system
CPT/HCPCS: 80048; 82728; 83540; 83550; 84443

== ENCOUNTER 2022-10-05 12:51 | Outpatient (CLI) | payer MEDICARE, SELFPAY ==
--- NOTE | 2022-10-05 | DI.CT_ITS ---
Exam(s) CT CHEST PE CTA EXAM: CT CHEST PE CTA CLINICAL HISTORY: CHEST PAIN, R07.9; SOB, R06.02. TECHNIQUE: Imaging Protocol: Axial CT angiography was performed with multi-slice acquisition and mu lti-planar reconstructions as well as axial, coronal and sagittal MIP reconstructions. CONTRAST MATERIAL: Intravenous: Omnipaque 350 Contrast volume:100 ml COMPARISON: CT CT ABDOMEN PELVIS W from 05/15/2019 CR,XR XR CHEST 2V PA LATERAL from 10/01/2022 FINDINGS: Pulmonary Arteries: No evidence of filling defect to suggest pulmonary emboli. Tracheobronchial tree: Patent where visualized. Mediastinum and Sophia: No dominant adenopathy or fluid collection. Pulmonary parenchyma: Expiratory changes. No consolidation or dominant measurable mass. Pleura: No effusion or pneumothorax. Heart: The heart is not dilated. No coronary artery calcifications are seen. Aorta: Thoracic aorta non-dilated. No aneurysm. No dissection. Upper abdomen: Unremarkable. Bones: Unremarkable for age. Tubes, Catheters, and Lines: None IMPRESSION: No evidence of pulmonary embolism. No acute pulmonary abnormality. RADIATION DOSE DELIVERED: Total DLP DATA REPOSITORY: All CT scans at this facility are submitted to the National Radiology Data Registry (NRDR) Dose Index Registry (DIR) with the [employer] (A[employer]). RADIATION OPTIMIZATION: All CT scans at this facility use at least one of these dose optimization te chniques: automated exposure control; mA and/or kV adjustment per patient size (includes targeted exa ms where dose is matched to clinical indication); or iterative reconstruction.
== END 2022-10-05 13:11 ==
LOC: DI 12:52
PROVIDERS: PCP Nurse Practitioner Family; Visit Provider Nurse Practitioner Family
DX: R06.02 Shortness of breath (principal); R07.89 Other chest pain
CPT/HCPCS: 71275

== ENCOUNTER 2022-10-22 12:45 | Outpatient (RCR) | payer MEDICARE, SELFPAY ==
--- NOTE | 2022-10-22 12:45 | HOLTER_ITS ---
APPROVED REPORT Conclusion This is a 48-hour Holter monitor ordered for chest pain Rhythm throughout was sinus with an average heart rate of 69. Minimum was 53, maximum 109 A total of 4 premature ventricular contractions and 2 premature atrial contractions were recorded There was no atrial fibrillation no high-grade AV block no pauses greater than 3 seconds Symptoms were reported which had no correlation to any dysrhythmia
== END 2022-10-22 23:59 | disposition home or self-care (01) ==
LOC: CARDOPNVT 12:45
PROVIDERS: PCP Nurse Practitioner Family; Visit Provider Nurse Practitioner Family
DX: R07.89 Other chest pain (principal); I49.1 Atrial premature depolarization; I49.3 Ventricular premature depolarization
CPT/HCPCS: 93225

== ENCOUNTER 2022-10-28 03:53 | Outpatient (CLI) | payer MEDICARE, SELFPAY ==
[2022-10-28] MEDS: Albuterol HFA 18 GM 200 PUFF INH IH (14:25)
[2022-10-28] MEDS: Inhaler, Assist Device 1 EACH MC (14:26)
--- NOTE | 2022-11-01 12:00 | W.PFT ---
Date of service: 10/28/22 Time of Service: 13:01 Pulmonary Function Test Result Indications: Dyspnea Interpretation Spirometry: There is no airflow limitation. No bronchodilator response. Lung Volumes: Normal lung volumes Diffusion Capacity: Decreased diffusion Airway Pressure: Normal airways resistance Impression Isolated decreased diffusion. This could represent emphysema, interstitial lung disease or pulmonary vascular disease (pulmonary hypertension) in the correct clinical setting. Clinical Correlation therefore is recommended.
== END 2022-10-28 03:54 | disposition home or self-care (01) ==
LOC: RT 03:54
PROVIDERS: PCP Nurse Practitioner Family; Visit Provider Nurse Practitioner Family
DX: R06.00 Dyspnea, unspecified (principal)
CPT/HCPCS: 93227; 94060; 94726; 94729

== ENCOUNTER 2022-10-28 07:00 | Outpatient (RCR) | payer MEDICARE, SELFPAY | END 2022-10-28 07:20 | LOC: CARDOPNVT 07:00 | PROVIDERS: PCP Nurse Practitioner Family; Visit Provider Nurse Practitioner Family | DX: R07.9 Chest pain, unspecified (principal); I49.3 Ventricular premature depolarization | CPT/HCPCS: 93227; 93226 ==

== ENCOUNTER 2022-11-16 01:50 | Outpatient (CLI) | payer MEDICARE, SELFPAY ==
--- NOTE | 2022-11-16 13:15 | DI.RAD_ITS ---
Exam(s) XR THUMB LT EXAM: XR THUMB LT EXAM DATE/TIME: CLINICAL HISTORY: LT THUMB PAIN, M79.645. TECHNIQUE: 2D digital imaging was performed of the left finger. Three views were obtained. PA/AP, oblique, and lateral views were obtained. COMPARISON: None. FINDINGS: BONES: No acute fracture is present. No bony destructive lesion is seen. JOINTS: No dislocation is present. There is mild joint space narrowing and small osteophyte at the i nterphalangeal joint of the thumb. SOFT TISSUE: Normal. IMPRESSION: Mild degenerative changes of the IP joint of the thumb. DATA REPOSITORY: RADIATION DOSE DELIVERED:
== END 2022-11-16 02:10 ==
LOC: DI 01:50
PROVIDERS: PCP Nurse Practitioner Family; Visit Provider Nurse Practitioner Family
DX: M79.645 Pain in left finger(s) (principal)
CPT/HCPCS: 73140

== ENCOUNTER 2023-02-15 18:21 | Emergency (ER) | payer MEDICARE, SELFPAY ==
[2023-02-15 18:26] VITALS: BP 165/85; PULSE 67; RESP 20; TEMP 36.8; O2SAT 99
--- OUTSIDE RECORDS SUMMARY | 2023-02-15 18:28 | XMS_ITS | Continuity of Care Document ---
Author Name Unknown Organization [facility] Address [address] [place] [address] Care Team Providers Care Shirt Presser Name Role Phone YO LEWIS APRN Primary Care Physician Encounter [facility] NBR [id number] Date(s): 12/14/22 - 12/14/22 [facility] [address] [place] [address] [place] Encounter Diagnosis [facility]MC arthritis(Discharge Diagnosis) - 12/14/22 Discharge Disposition: Home or Self Care Attending Physician: Nadine Alvarado APRN Allergies, Adverse Reactions, Alerts Substance Reaction Severity Status Zoloft Unknown Active clonazePAM Unknown Unknown Active Functional Status 12/14/22 Other exposure to Infectious Disease Non e Medications Acidophilus Probiotic Blend oral capsule 1 cap, Oral, Daily, 0 Refill(s) Start Date: 12/14/22 Status: Ordered acyclovir 400 mg =, Oral, Daily, 0 Refill(s) Start Date: 12/14/22 Status: Ordered busPIRone 15 mg oral tablet 15 mg = 1 tab, Oral, BID, # 90 tab, 0 Refill(s) Start Date: 12/14/22 Status: Ordered Colace 100 mg oral capsule 200 mg = 2 cap, Oral, Daily, PRN as needed for constipation, # 20 cap, 0 Refill(s) Start Date: 12/14/22 Status: Ordered D3 50 mcg (2000 intl units) oral capsule 50 mcg = 1 cap, Oral, Daily, 0 Refill(s) Start Date: 12/14/22 Status: Ordered omeprazole 40 mg oral delayed release capsule 30 EA, TAKE ONE CAPSULE BY MOUTH EVERY DAY, 0 Refill(s) Start Date: 12/14/22 Status: Ordered simvastatin 40 mg oral tablet 40 mg = 1 tab, Oral, every day at bedtime, # 30 tab, 0 Refill(s) Start Date: 12/14/22 Status: Ordered traZODone 100 mg oral tablet 90 tab, 0 Refill(s) Start Date: 12/14/22 Status: Ordered Vitamin B12 1000 mcg oral tablet 1,000 mcg = 1 tab, Oral, Daily, # 30 tab, 0 Refill(s) Start Date: 12/14/22 Status: Ordered Vitamin C 500 mg oral tablet 500 mg = 1 tab, Oral, Daily, # 30 tab, 0 Refill(s) Start Date: 12/14/22 Status: Ordered Problem List Condition Confirmation Course Effective Dates Status Health St [facility] Informant High cholesterol Confirmed Active Procedures Procedure Date Related Diagnosis Body Site Status Appendectomy 11/2016 Completed Vital Signs Most recent to oldest [Reference Range]: 1 Peripheral Pulse Rate [60-100 bpm] 66 bp m (12/14/22 11:17 AM) Blood Pressure [90-140/60-90 mmHg] 134/8 2mmHg (12/14/22 11:17 AM) Weight 86.18 kg (12/14/22 11:17 AM) Weight Measured (lbs) 189.994 lb (12/14/22 11:17 AM) Height 167.64 cm (12/14/22 11:17 AM) Height/Length Measured (inches) 66 inch (12/14/22 11:17 AM) BSA Measured 2 m2 (12/14/22 11:17 AM) Body Mass Index 30.67 kg/m2 (12/14/22 11:17 AM) Social History Social History Type Response Tobacco Never tobacco user T obacco Use:. Sex Physician Outpatient Note * Nadine Alvarado APRN: PERFORM Event Display: Office Clinic Note Physician Authored Date: [id number] LEONA SETHI :1955 Age:67 years Sex:Female Visit Date:12/14/2022 Primary Care Physician: YO LEWIS APRN Chief Complaint Left thumb pain History of Present Illness Leona is a very pleasant 67 year old female who presents today for evaluation of base of left thumbpain. Since November she had a sudden onset of left thumb pain that awoke her from sleep. She does not recall any specific injury. She has attempted tylenol, ibuprofen and voltaren gel with minimal relief. She has been wearing a thumb spica brace the majority of most days that had started to give her some relief. She attempted two days out of the brace which caused a return of the pain. She denies anyradiating pain into the forearm.??Occasional clicking in the thumb. Denies weakness. She is??right hand dominant. Review of Systems Constitutional:?No??fevers,?No??chills,?No??sweats Respiratory:?No??shortness of breath,?No??cough Cardiovascular:?No??Chest pain,?No??palpitations,?No??syncope Gastrointestinal:?Nonausea,?No??vomiting,?No??diarrhea Bobby/Lymph:?No??bruising tendency,?No??swollen lymph glands Musculoskeletal:??No??back pain,??No??neck pain,??Positive for??joint pain,??No??muscle pain,??No??decreased range of motion Integumentary:?No??rash,?No??pruritus,?No??abrasions Neurologic: Alert & oriented X 4 Physical Exam Vitals & Measurements HR:??66??(Peripheral)?? BP:??134/82?? SpO2:??98%?? HT:??167.64??cm?? WT:??86.18??kg?? BMI:??30.67?? Pain Score:??3?? BSA:??2?? The patient is well dressed, well groomed and appearing stated age in NAD. Focused exam of the lefthand and wrist reveals no deformity. There is no reported tenderness. Skin is intact without erythema, warmth, ecchymosis or edema. She can make a composite fist with ease. Thumb opposition is intact. ROM to the wrist and thumb is intact without pain. Ligamentous testing of the thumb is with stableendpoint. There is no crepitus or clicking to the wrist or thumb. 2+ radial pulse and a brisk capillary refill. Procedure Risks, benefits and alternatives to this injection are discussed with the patient, verbal consent was obtained. ??Under standard, sterile technique, the base of the left thumb overlying the CMC jointis meticulously prepped with alcohol x3. ??Then 40 mg of Kenalog combined with 1% lidocaine plain is injected without difficulty.?? The patient tolerated the injection very well and a dry, sterile bandage is applied.?? Postinjection instructions are provided. Assessment/Plan 1.??CMC arthritis??M19.049 Leona is a very pleasant 67 year old female who presents for evaluation of left base of thumb pain.She had xrays at an outside facility that show mild cmc arthritis. She has been wearing a brace with good relief. We discussed treatment options of watchful waiting, bracing, PT, CSI, prescription antiinflammatories and surgery. She opts for CSI and continued bracing which is reasonable and completed today without incident. If she gets no relief from this injection she will call and we will try Celebrex as OTC options are not providing her relief. Leona is encouraged to contact the office at any time with questions or needs. Problem List/Past Medical History Ongoing No qualifying data Historical No qualifying data Medications No active medications Allergies No active allergies Social History Electronic Cigarette/Vaping Electronic Cigarette Use: Never. Employment/School Retired Tobacco Never tobacco user Tobacco Use:. Diagnostic Results Diagnostic Study Interpretation: Images from 11/16/22 are personally reviewed on the [facility] system to reveal mild CMC arthritis to the first digit without osteophyte formation. There are no other obvious fractures, dislocations or abnormalities noted. Electronically Signed on 12/14/22 12:14 PM Nadine Alvarado APRN Patient Care team information Care Team Personnel Name: YO LEWIS APRN Position: No Access Member Role: Primary Care Physician Address: Address: [address] [place] [address] Care Team Related Persons Name: KARMEN SETHI Address: [address]
--- NOTE | 2023-02-15 19:25 | W.ED.GENAD ---
Discharge Plan Disposition Patient Disposition: Home Condition: Stable Discharge Details Clinical Impression: Subconjunctival hemorrhage of right eye Primary Care Provider: Tracie Murray ED Provider: Kiesha Agudelo Home Meds and New Rx's Prescriptions: Continued Saccharomyces boulardii [Daily Probiotic (S. boulardii)] 250 mg capsule 250 mg PO BID vitamin K89-wyizk acid 1-0.8 mg tablet PO Patient Comments: pt does not know if she takes this med acyclovir 400 mg tablet 400 mg PO DAILY omeprazole 40 mg capsule,delayed release(DR/EC) 40 mg PO DAILY albuterol sulfate 90 mcg/actuation HFA aerosol inhaler 2 puff inhalation Q6H PRN cyanocobalamin (vitamin B-12) 1,000 mcg tablet 1,000 mcg PO DAILY cholecalciferol (vit D3)(bulk) 1,000 GM liquid 100 gm Miscellaneous DAILY docusate sodium [Colace] 100 MG capsule 100 mg PO BID Rx Instructions: 10/11/18 none lately simvastatin 40 mg Tablet 40 mg PO HS buspirone 15 mg Tablet 15 mg PO BID trazodone 50 mg Tablet 50 - 100 mg PO HS ascorbic acid (vitamin C) [Vitamin C] 1,000 mg tablet 0.5 g PO DAILY Discharge Instructions Instructions: Subconjunctival Hemorrhage (ED) Additional Instructions: Please follow-up with your eye doctor if any further concerns. Return to the ER for any worsening headache, weakness or dizziness or concerns. Follow up with primary care provider in 3-5 days. Return to ED sooner if any worsening or concerns. Increase oral fluids. Referrals: [facility] [Outside] - 1 week Tracie Murray [Primary Care Provider] - 5 days Discharge Data Discharge Date/Time-TO BE ENTERED AT DEPARTURE: 02/15/23 19:51 Medical Decision Making 67-year-old female presents to the ER with a chief complaint of right eye irritation and possible foreign body sensation. Patient reports 2 days ago her daughter noted some burst capillaries. She reports some irritation to her eye. She does report some recent straining and carrying heavy water up and down the stairs. She also rides a motorcycle and something may have flown into her eye. Malik lamp exam performed, no uptake in dye. No evidence for conjunctivitis. She does have a subconjunctival hemorrhage. I did discuss strict return instructions with her to return if any headache, weakness dizziness visual disturbances or any further concerns she verbalizes understanding. No obvious foreign body visualized. This text was generated using [employer] dictation system, please disregard any oddities of phrase or misspellings. HPI General Mode of arrival: ambulatory. Date/Time Provider Initiated Documentation: 02/15/23 18:42. Limitations to Documentation: no limitations. Information obtained by: patient, RN notes reviewed and old records reviewed. HPI Narrative: 67-year-old female presents to the ER with a chief complaint of right eye irritation and possible foreign body sensation. Patient reports 2 days ago her daughter noted some burst capillaries. She reports some irritation to her eye. She does report some recent straining and carrying heavy water up and down the stairs. She also rides a motorcycle and something may have flown into her eye. Related Data Home Medications Medication Instructions Recorded Confirmed cholecalciferol (vit D3)(bulk) 1 100 gm miscellaneous DAILY 02/23/16 02/15/23 million unit/gram liquid docusate sodium 100 mg capsule 100 mg PO BID 11/24/16 02/15/23 (Colace) buspirone 15 mg tablet 15 mg PO BID 10/15/18 02/15/23 simvastatin 40 mg tablet 40 mg PO HS 10/15/18 02/15/23 trazodone 50 mg tablet 50 - 100 mg PO HS 10/19/18 02/15/23 Saccharomyces boulardii 250 mg 250 mg PO BID 07/02/19 02/15/23 capsule (Daily Probiotic (S. boulardii)) acyclovir 400 mg tablet 400 mg PO DAILY 04/06/22 02/15/23 vitamin B12 1 mg-folic acid 0.8 mg tab PO 04/06/22 02/04/23 tablet albuterol sulfate 90 mcg/actuation 2 puff inhalation Q6H PRN 10/22/22 02/15/23 aerosol inhaler omeprazole 40 mg capsule,delayed 40 mg PO DAILY 10/22/22 02/15/23 release cyanocobalamin (vitamin B-12) 1,000 mcg PO DAILY 11/24/22 02/15/23 1,000 mcg tablet ascorbic acid (vitamin C) 1,000 mg 0.5 g PO DAILY 02/04/23 02/15/23 tablet (Vitamin C) Allergies Allergy/AdvReac Type Severity Reaction Status Date / Time sertraline [From Zoloft] Allergy Intermediate shakes Verified 02/04/23 09:32 clonazepam AdvReac Intermediate Nausea Unverified 02/04/23 09:32 General Stated Complaint: EyeProblem ANNE MARIE: 4 Review of Systems Eyes Eyes: Reports as per HPI, Reports irritation and Reports other (Subconjunctival hemorrhage) PFSH All Active Problems (Updated 02/15/23 @ 19:33 by iKesha Agudelo NP) Subconjunctival hemorrhage of right eye (Acute) Decreased diffusion capacity of lung (Acute) Equinus contracture of ankle (Acute) Achilles tendinitis of both lower extremities (Acute) Endometrial stripe increased (Acute) GERD (gastroesophageal reflux disease) (Chronic) Anxiety disorder (Acute) Hiatal hernia (Acute 07/12/16) Chronic GERD (Acute 07/12/16) Medical History (Updated 02/15/23 @ 19:33 by Kiesha Agudelo NP) Abdominal pain Acute appendicitis with generalized peritonitis Allergies Anxiety Arthralgia Back pain Breast pain Carpal tunnel syndrome Chest heaviness Cold sore Constipation Cough Depression Discharge planning issues DVT prophylaxis Dyspnea Elevated troponin Encounter for colorectal cancer screening Forgetfulness GERD (gastroesophageal reflux disease) Globus sensation (07/12/16) H. pylori infection H/O acute pancreatitis Headache, unspecified Hemangioma of liver Hemorrhoids Hiatal hernia (02/23/16) Hypercholesteremia Hypertensive urgency Hypomagnesemia Insomnia Intractable nausea and vomiting Migraine headache with aura Overweight Pain of left thumb Pedal edema Plantar wart Skin tag (06/05/13) SOB (shortness of breath) Thoracic spine pain Tremor Surgical History Appendectomy (11/25/16) EGD - IV Sedation (02/23/16) Dr Maryellen Swann, repeat 10 yrs H/O colonoscopy (06/23/18) dr owusu, no abnormalities, repeat 10 years Family History Other Esophageal cancer Heart disease Stroke Social History (Updated 04/06/22 @ 10:36 by Juliann Wheeler RN) Smoking/Tobacco Use Status: Never Smoking risk assessment performed?: Yes Alcohol Intake: never Drug use: Never Details: No marijuana use x 1yr 04/06/22. 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 although, she did try it to see if it would help with the nausea. Household members: other Details: Number of Children: 3 current occupation: Retired. What is your relationship status?: Panel score (0-1 are the most socially isolated patients): 0 Do you feel safe at home: Yes Do you feel safe in your relationship?: Yes History History 3 Para 2 Hx # Term Pregnancies 3 Multiple births Hx # Pregnancies Ectopic pregnancies AB induced Hx Number of Living Children AB spontaneous Exam Eyes Conjunctivae: conjunctival abnormality right subconjunctival hemorrhage Pupils: PERRL EOM: EOM intact bilaterally Eyes/upper lids images: 1. Subconjunctival hemorrhage, no uptake in dye, no foreign body visualized. Pupils are PERRLA, EOMs intact. No discharge. Course Vital Signs Vital signs: Vital Signs Temperature 36.8 C 02/15/23 18:26 Pulse 67 02/15/23 18:26 Respiratory Rate 20 02/15/23 18:26 Blood Pressure 165/85 H 02/15/23 18:26 Pulse Oximetry 99 02/15/23 18:26 Temperature 36.8 C 02/15/23 18:26 Pulse 67 02/15/23 18:26 Respiratory Rate 20 02/15/23 18:26 Blood Pressure 165/85 H 02/15/23 18:26 Blood Pressure Position Sitting 02/15/23 18:26 Pulse Oximetry 99 02/15/23 18:26 Oxygen Delivery Method Room Air 02/15/23 18:26 Oxygen Flow Rate 0 02/15/23 18:26
== END 2023-02-15 19:51 | disposition home or self-care (01) ==
PROVIDERS: Emergency Provider Registered Nurse Emergency; PCP Nurse Practitioner Family
DX: H11.31 Conjunctival hemorrhage, right eye (principal)
CPT/HCPCS: 99283

== ENCOUNTER → 2023-05-11 03:25 | Outpatient (CLI) | payer MEDICARE, SELFPAY ==
--- NOTE | 2023-05-11 14:14 | DI.US_ITS ---
APPROVED REPORT EXAM: Comprehensive 2D, Doppler, and color-flow Echocardiogram Patient Location: Out-Patient Side Sawyer: Amy Castellano RDCS (AE) Indications: Dyspnea, Decreased diffusion on PFT Other Information Study Quality: Adequate Conclusion Normal left ventricular wall thickness and chamber size. Ejection fraction is 55 to 60%. Wall motio n is normal. Diastolic function is normal for age Normal right ventricular size and systolic function Both atria are normal in size Minimally sclerotic trileaflet aortic valve without stenosis or regurgitation There is no additional structural or hemodynamically significant valvular disease Dilated ascending aorta measuring 3.73 cm Wall motion Left Ventricle The left ventricle is normal size. The left ventricular systolic function is normal. The left ventric ular ejection fraction is within the normal range. There is normal left ventricular wall thickness. T here is normal LV segmental wall motion. There is no ventricular septal defect visualized. LVEF is 55 -60%. Right Ventricle The right ventricle is normal size. The right ventricular systolic function is normal. Atria The left atrium size is normal. The right atrium size is normal. The interatrial septum is intact wit h no evidence for an atrial septal defect. Aortic Valve The Aortic valve is minimally sclerotic. Aortic valve is trileaflet. There is no aortic valvular sten osis. No aortic regurgitation is present. Mitral Valve The mitral valve is normal in structure. No evidence of mitral valve stenosis. Trace mitral regurgita tion. Tricuspid Valve The tricuspid valve is normal in structure. There is no tricuspid valve stenosis. Trace tricuspid reg urgitation. Unable to assess PA pressure. Pulmonic Valve The pulmonary valve is normal in structure. There is no pulmonic valvular stenosis. There is no pulmo sharlene valvular regurgitation. Great Vessels The aortic root is normal in size. The ascending aorta is mild to moderately Aortic arch is normal in caliber. dilated. IVC is normal in size and collapses >50% with inspiration. Pericardium There is no pericardial effusion. 2D Dimensions IVSD d PLAX 0.77 cm F: 0.6-1.0 Ao Root d 3.16 cm F: 2.7 - 3.3 LVPW d PLAX 0.77 cm F: 0.6 - 1.0 Ao Asc Diam d 3.73 cm F: 2.3 - 3.1 LVID d PLAX 4.35 cm F: 3.8 - 5.2 LVDs 3.10 cm F: 2.2 - 3.5 LV EF Teichholz 55.5 % FS 28.66 % LV EDV (Teich) 85.4 mL LV ESV (Teich) 38.0 mL M-Mode TAPSE 2.06 cm (M/F) >1.7 Auto EF LV EDV A4C 84.8 mL LV EDV A2C 100.3 mL LV EDV BP 92.7 mL LV ESV A4C 37.0 mL LV ESV A2C 43.8 mL LV ESV BP 40.3 mL LVEF(%) A4C 56.3 % LVEF(%) A2C 56.3 % LVEF(%) BP 56.5 % LV SV A4C 47.8 ml LV SV A2C 56.5 ml LV SV BP 52.4 ml LV CO A4C 2.6 L/min LV CO A2C 3.0 L/min LV CO BP 2.8 L/min HR A4C 55.22 BPM HR A2C 53.26 BPM LV EDV Index (BP) LA Volume LA Length A4C 4.4 cm LA Length A2C 4.6 cm LA Area A4C s 15.11 cm2 LA Area A2C s 14.60 cm2 LA Vol A4C A-L 44.10 mL LA Vol A2C A-L 39.45 mL LA Vol Biplane A-L 42.6 mL LA Vol/BSA A4C A-L LA Vol/BSA A2C A-L LA Vol/BSA BP A-L 21.5 mL/m2 LA Vol A4C MOD 41.0 mL LA Vol A2C MOD 37.2 mL LA Vol BP MOD 39.3 mL RA Volume RA Area A4C 9.6 cm2 RA ESV A4C (A-L) 23.3mL RA Vol/BSA A4C A-L RA Length A4C 3.4 cm RA ESV A4C (MOD) 22.1mL LV Diastology MV E' medial 0.061 (>0.07 m/s) MV E Vmax 0.58 (0.4-1.3 m/s) MV E/E' MED 9.60 (<14) MV A Vmax 0.80 (0.4-1.3 m/s) MV E' lateral 0.043 (>0.1 m/s) E/A Ratio 0.7 MV E/E' LAT 13.56 (<14) MV E' Average 0.052 m/s MV E/E'(average) 11.24 Aortic Valve AoV Vmax 1.21 m/s LVOT Vmax 1.05 m/s AoV Peak Grad 5.9 mmHg LVOT Peak Grad 4.4 mmHg AoV Area (Vmax) 2.77 cm2 LVOT VTI 0.241 m AoV VTI 0.282 m LVOT Mean Grad 2.6 mmHg AoV Mean Tahir. 0.87 m/s LVOT SV 77.21 mL AoV Mean Grad 3.5 mmHg LVOT Diam s 2.00 cm AoV Area (VTI) 2.74 cm2 Velocity Ratio 0.87 Mitral Valve MV DT 241 (160-240 msec) MV Vmax TIPS 0.70 m/s MV Mean Grad 0.8 (<2mmHg) MV VTI 0.250 m Pulmonary Valve PV Vmax 0.79 (0.5-1.5 m/s) RVOT Vmax 0.68 m/s PV Peak Grad 2.5 mmHg RVOT Peak Gr. 1.8 mmHg PV Mean Tahir 0.59 m/s RVOT VTI 0.159 m PV Mean Grad 1.6 mmHg RVOT Mean Gr. 0.9 mmHg Tricuspid Valve RA Pressure 3.00 mmHg TV S' 0.09 m/s
== END ==
PROVIDERS: PCP Nurse Practitioner Family; Visit Provider Student in an Organized Health Care Education/Training Program
DX: R06.00 Dyspnea, unspecified (principal)
CPT/HCPCS: 93306

== ENCOUNTER → 2023-05-16 14:59 | Outpatient (BNVA) | payer MEDICARE, SELFPAY | PROVIDERS: PCP Nurse Practitioner Family; Referring Provider Nurse Practitioner Family; Visit Provider Physician Assistant Surgical | DX: R06.00 Dyspnea, unspecified (principal); R94.2 Abnormal results of pulmonary function studies | CPT/HCPCS: 99214 ==

== ENCOUNTER → 2023-05-31 00:39 | Outpatient (CLI) | payer MEDICARE, SELFPAY ==
--- NOTE | 2023-05-31 08:15 | DI.CT_ITS ---
Exam(s) CT CHEST HIGH RESOLUTION EXAM: CT CHEST HIGH RESOLUTION CLINICAL HISTORY: ? ILD, DECREASED DIFFUSION CAPACITY OF LUNG, R94.2. TECHNIQUE: Multi planar reconstructions were performed. CONTRAST MATERIAL: None COMPARISON: CT CT CHEST PE CTA from 10/05/2022 FINDINGS: CHEST: LUNGS: There are no confluent infiltrates nor pleural effusions there are no ominous pulmonary nodule s. There is scar-like density in the left lower lobe which is unchanged from prior study listed abov e and also milder amount of scar-like infiltrate in the posterior basal segment of the right lower lo be, also unchanged. There is minimal if any significant interstitial disease. No cystic lung diseas e. No obvious bronchiectasis MEDIASTINUM: There is no obvious hilar nor mediastinal adenopathy. Partially visualized thyroid unrem arkable. No supraclavicular adenopathy.No obvious axillary adenopathy CARDIAC: Heart size is normal. There is no pericardial effusion.Caliber of the thoracic aorta is wit hin upper normal limits. VISUALIZED UPPER ABDOMEN:No adrenal masses. Spleen size normal. OSSEOUS: No fractures nor lytic osseous lesions. There is a benign intraosseous hemangioma noted in left side of the T6 vertebral body. No blastic lesions evident.. IMPRESSION: 1. Mild findings as described above. No significant interstitial disease nor cystic lung disease arminda dent. 2. Scarring in both lung bases is unchanged from 10/05/2022. No pleural effusions. 3. No intrathoracic adenopathy. RADIATION DOSE DELIVERED: Total DLP DATA REPOSITORY: All CT scans at this facility are submitted to the National Radiology Data Registry (NRDR) Dose Index Registry (DIR) with the [employer] (ACR). RADIATION OPTIMIZATION: All CT scans at this facility use at least one of these dose optimization te chniques: automated exposure control; mA and/or kV adjustment per patient size (includes targeted exa ms where dose is matched to clinical indication); or iterative reconstruction.
== END ==
PROVIDERS: PCP Nurse Practitioner Family; Visit Provider Physician Assistant Surgical
DX: R94.2 Abnormal results of pulmonary function studies (principal)
CPT/HCPCS: 71250

== ENCOUNTER → 2023-06-13 03:10 | Outpatient (CLI) | payer MEDICARE, SELFPAY ==
--- NOTE | 2023-06-13 13:00 | DI.MAMMO_ITS ---
Exam(s) MAMMO SCREENING EXAM: MAMMO SCREENING CLINICAL HISTORY: SCREENING, Z12.31 TECHNIQUE: Mammograms were interpreted according to the usual protocol including computer analysis w Intent CAD system, tomosynthesis and C-view imaging. COMPARISON: 2013 through 16 August 2022 FINDINGS: The breasts are composed of scattered fibroglandular densities, Breast Density category B. No suspicious masses or suspicious microcalcifications are seen. No skin thickening or abnormal axillary lymph nodes are seen. There has been no significant change from prior exams. IMPRESSION: BI-RADS Category 1, Negative mammogram Yearly screening mammography is recommended. Breast Density - Category B, scattered fibroglandular densities. A negative radiographic report should not delay biopsy if a dominant or clinically suspicious mass is present. Up to ten percent of cancers are not identified on mammography. A negative report may reinforce clinical impression. Adenosis and dense breasts may obscure an underlying neoplasm. False positive reports average 6 to 10%. Patient will receive a letter notifying them of these results.
== END ==
PROVIDERS: PCP Nurse Practitioner Family; Visit Provider Nurse Practitioner Family
DX: Z12.31 Encounter for screening mammogram for malignant neoplasm of breast (principal)
CPT/HCPCS: 77063; 77067

== ENCOUNTER → 2023-06-21 01:19 | Outpatient (CLI) | payer MEDICARE, SELFPAY ==
--- NOTE | 2023-06-21 | ETT_ITS ---
APPROVED REPORT Exam: Exercise Treadmill Patient Location: Out-Patient Room/Bed: Stress Nurse: Agustina Coburn RN Ordering Provider:YO LEWIS, Contact Number: [phone] BMI: 31.16 Baseline Rhythm: Sinus Rhythm Indications: Chest pain, SOB, Medical History Medical History: Hypercholesterolemia, GERD, anxiety, depression, dilated ascending aorta Cardiac Medications: Omeprazole, vitamin B12, buspirone, simvastatin, trazodone, acyclovor, vitamin D 3, vitamin C Allergies: Zoloft, klonopin Cardiac Risk Factors: Family hx, HLD Previous Cardiac Procedures: None Pretest Chest Pain Characteristics: None Exercise History: Indeterminate Physical Disabilities: None Lung Sounds: Clear to auscultation, diminished bases Heart Sounds: Regular Stress Test Details Test: Exercise stress testing was performed using a Nader protocol. Rest Stress HR Resting HR Supine: 63 bpm Max Heart Rate (APMHR): 153 bpm Resting HR Standin bpm Target HR (85% APMHR): 130 bpm Max HR Achieved: 138 bpm % of APMHR: 90 Recovery HR: 69 bpm HR response to stress: Normal HR response to stress BP Resting BP Supine: 162/90 mmHg Resting BP Standin/90 mmHg Max BP: 182/94 mmHg Recovery BP: 142/78 mmHg BP response to stress: Normal blood pressure response to stress. ECG Resting ECG: Sinus Rhythm Ectopy: None Stress ECG: Sinus Tachycardia ST Change: No significant ST segment changes noted Arrhythmia: None Recovery ECG: Sinus Rhythm Recovery ST Change: No significant ST segment changes noted Recovery Arrhythmia: None Clinical Reason for Termination: SOB , Target HR Achieved Stress Symptoms: SOB Exercise duration: 04 min42 sec Highest Stage Reached: Stage 2: 2.5 mph at 12% grade. Exercise capacity: 6.70 METs Angina Score: None Jimenez Treadmill Score: 4.5 Rate Pressure Product: [id number] Stress ECG Conclusion 1. Resting electrocardiogram showed poor R wave progression 2. Patient exercised on the Nader protocol and completed a workload of 6.7 METS, limited by dyspnea 3. Normal heart rate and blood pressure response to exercise. The patient achieved 90% of predicted heart rate for age 4. There was no electrocardiographic evidence of myocardial ischemia 5. There were no significant dysrhythmias Jimenez Treadmill Score is 4.5 which is Moderate risk. Stress Test Summary STAGE Time (mins) Speed (mph) Grade (%) HR BP SpO2 SYMPTOMS METS Supine 63 162/90 Standing 76 132/90 1 3 1.7 10 136 148/72 4.5 2 6 2.5 12 136 7 1 min recovery 103 182/94 97 3 min recovery 73 168/78 96 6 min recovery 69 142/78
== END ==
PROVIDERS: PCP Nurse Practitioner Family; Visit Provider Nurse Practitioner Family
DX: Z12.31 Encounter for screening mammogram for malignant neoplasm of breast (principal)
CPT/HCPCS: 93016; 93018; 93017

== ENCOUNTER 2023-06-28 08:42 | Outpatient (CLI) | payer MEDICARE, SELFPAY ==
--- NOTE | 2023-06-28 08:30 | RT.EKG_ITS ---
APPROVED REPORT Exam: Resting ECG Reason for Exam: FARLEY Patient Location: O HR:68 bpm ECG Measurements Heart Rate 68 AXIS PA 186 P 44 QRSd 95 QRS -17 QT 406 T 54 QTc 432 Conclusion Sinus rhythm...normal P axis, V-rate 50- 99 Low voltage, precordial leads...precordial leads <1.0mV
== END 2023-06-28 08:43 | disposition home or self-care (01) ==
LOC: DI.CARD 08:43
PROVIDERS: PCP Nurse Practitioner Family; Visit Provider Internal Medicine Cardiovascular Disease
DX: R06.09 Other forms of dyspnea (principal)
CPT/HCPCS: 93010

== ENCOUNTER → 2023-06-28 11:16 | Outpatient (BNVA) | payer MEDICARE, SELFPAY | PROVIDERS: PCP Nurse Practitioner Family; Referring Provider Nurse Practitioner Family; Visit Provider Internal Medicine Cardiovascular Disease | DX: Z82.49 Family history of ischemic heart disease and other diseases of the circulatory system (principal); R06.09 Other forms of dyspnea | CPT/HCPCS: 93005; 99214 ==

== ENCOUNTER 2023-06-28 16:16 | Outpatient (CLI) | payer MEDICARE, SELFPAY ==
[2023-06-28 13:01] LABS: HCT 39.9 % (36.0-46.0); HGB 13.7 g/dL (11.2-15.7); MCH 29.5 pg (27.0-33.0); MCHC 34.3 % (32.0-36.0); MCV 86 fL (80-95); MPV 9.5 fL (8.0-11.0); Platelet Count 241 10^3/uL (130-400); RBC 4.64 10^6/uL (3.93-5.22); RDW 13.1 % (11.7-14.6); RDW-SD 40.4 fL; WBC 9.41 10^3/uL (4.4-10.8)
[2023-06-28 13:10] LABS: BUN 21 mg/dL (7-18); CREATININE 1.1 mg/dL (0.55-1.02); Calcium 9.3 mg/dL (8.5-10.1); Chloride 103 mmol/L (98-107); Estimated GFR 55.07 (mL/min/1.73m2); Glucose 111 mg/dL (74-106); Potassium 4.4 mmol/L (3.5-5.1); Sodium 138 mmol/L (136-145)
[2023-06-28 13:24] LABS: INR 1.1 (0.9-1.1); PTT Activated 24.7 sec (23.6-32.8); Prothrombin Time 10.9 sec (9.1-11.1)
== END 2023-06-28 16:17 | disposition home or self-care (01) ==
LOC: LBO 16:17
PROVIDERS: PCP Nurse Practitioner Family; Visit Provider Internal Medicine Cardiovascular Disease
DX: R07.9 Chest pain, unspecified (principal)
CPT/HCPCS: 36415; 80048; 85027; 93005; 99214; 85610; 85730

== ENCOUNTER → 2023-08-23 14:56 | Outpatient (BNVA) | payer MEDICARE, SELFPAY | PROVIDERS: PCP Nurse Practitioner Family; Referring Provider Nurse Practitioner Family; Visit Provider Student in an Organized Health Care Education/Training Program | DX: R94.2 Abnormal results of pulmonary function studies (principal); R06.00 Dyspnea, unspecified | CPT/HCPCS: 99214 ==

== ENCOUNTER → 2023-09-22 12:31 | Outpatient (BNVA) | payer MEDICARE, SELFPAY | PROVIDERS: PCP Nurse Practitioner Family; Referring Provider Nurse Practitioner Family; Visit Provider Nurse Practitioner Adult Health | DX: G31.84 Mild cognitive impairment of uncertain or unknown etiology (principal) | CPT/HCPCS: 99215 ==

== ENCOUNTER → 2023-10-11 03:48 | Outpatient (CLI) | payer MEDICARE, SELFPAY ==
--- NOTE | 2023-10-11 08:30 | DI.MRI_ITS ---
Exam(s) MR BRAIN WO EXAM: MR BRAIN WO CLINICAL HISTORY: cognitive changes R41.3 OTHER AMNESIA TECHNIQUE: Multiplanar multisequence MRI of the brain was performed. COMPARISON: No exams were available for comparison FINDINGS: VENTRICLES AND EXTRA AXIAL SPACES: Normal in size and morphology for the patient's age. MIDLINE SHIFT: None. CEREBRAL PARENCHYMA: No focus of restricted diffusion to suggest acute infarct. No space-occupying le gm identified. No significant atrophy. No abnormal white matter lesions. HEMORRHAGE: None. BRAINSTEM/CEREBELLUM: Normal. VISUALIZED PARANASAL SINUSES/MASTOIDS:Clear. Vasculature: Normal flow void. PITUITARY GLAND: Unremarkable. ORBITS: Unremarkable. IMPRESSION: Unremarkable MRI of the brain. DATA REPOSITORY:
== END ==
PROVIDERS: PCP Nurse Practitioner Family; Visit Provider Nurse Practitioner Adult Health
DX: R41.3 Other amnesia (principal)
CPT/HCPCS: 70551

== ENCOUNTER → 2023-11-17 09:57 | Outpatient (BNVA) | payer MEDICARE, SELFPAY | PROVIDERS: PCP Nurse Practitioner Family; Referring Provider Nurse Practitioner Family; Visit Provider Nurse Practitioner Adult Health | DX: G31.84 Mild cognitive impairment of uncertain or unknown etiology (principal); F41.9 Anxiety disorder, unspecified | CPT/HCPCS: 99214 ==

== ENCOUNTER 2024-01-19 15:48 | Outpatient (REF) | payer MEDICARE, SELFPAY ==
[2024-01-19 15:14] LABS: ALT 45 U/L (14-59); AST 31 U/L (15-37); Albumin 3.8 g/dL (3.4-5.0); Alkaline Phosphatase 147 U/L (46-116); Anion Gap 8.5 mmol/L (3-11); BUN 14 mg/dL (7-18); Bilirubin, Total 0.38 mg/dL (0.2-1.0); CO2 28.5 mmol/L (21.0-32.0); Calcium 9.6 mg/dL (8.5-10.1); Calculated LDL 125 mg/dL (<100); Chloride 106 mmol/L (98-107); Cholesterol 241 mg/dL (<200); Estimated GFR 61.36 (mL/min/1.73m2); Glucose 98 mg/dL (74-106); HDL Cholesterol 45 mg/dL (40-60); Magnesium 1.9 mg/dL (1.8-2.4); Potassium 4.8 mmol/L (3.5-5.1); Sodium 143 mmol/L (136-145); Total Protein 7.6 g/dL (6.4-8.2); Triglyceride 357 mg/dL (<150); Vitamin B12 1776 pg/mL (193-986)
== END 2024-01-19 15:49 | disposition home or self-care (01) ==
LOC: NCHCN 15:48
PROVIDERS: PCP Nurse Practitioner Family; Visit Provider Nurse Practitioner Family
DX: R53.83 Other fatigue (principal); E78.00 Pure hypercholesterolemia, unspecified; E83.42 Hypomagnesemia
CPT/HCPCS: 80053; 80061; 82607; 83735

== ENCOUNTER → 2024-05-17 10:55 | Outpatient (BNVA) | payer MEDICARE, SELFPAY | PROVIDERS: PCP Nurse Practitioner Family; Referring Provider Nurse Practitioner Family; Visit Provider Nurse Practitioner Adult Health | DX: G31.84 Mild cognitive impairment of uncertain or unknown etiology (principal) | CPT/HCPCS: 99214 ==

== ENCOUNTER 2024-06-08 12:13 | Emergency (ER) | payer MEDICARE, SELFPAY ==
[2024-06-08 12:17] VITALS: BP 180/100; PULSE 82; RESP 18; TEMP 37.5; O2SAT 99
--- NOTE | 2024-06-08 12:19 | ED.GENADUL_ITS ---
Discharge Plan Disposition Patient Disposition: Home Condition: Stable Discharge Details Clinical Impression: Degenerative joint disease of right shoulder Primary Care Provider: Tracie Murray ED Provider: Kiesha Agudelo Home Meds and New Rx's Prescriptions: New oxycodone 5 mg capsule 5 mg PO Q8H PRN (Reason: pain) Qty: 7 0RF Rx Instructions: Take 1 capsule by mouth every 8 hours as needed for moderate to severe pain. Please take with food and no driving or operating heavy machinery while on this medication. Continued Saccharomyces boulardii [Daily Probiotic (S. boulardii)] 250 mg capsule 250 mg PO BID mirtazapine 7.5 mg tablet 7.5 mg PO DAILY acyclovir 400 mg tablet 400 mg PO DAILY cyanocobalamin (vitamin B-12) 1,000 mcg tablet 1,000 mcg PO DAILY omeprazole 40 mg capsule,delayed release(DR/EC) 20 mg PO DAILY cholecalciferol (vit D3)(bulk) 1,000 GM liquid 100 gm Miscellaneous DAILY docusate sodium [Colace] 100 MG capsule 100 mg PO BID Rx Instructions: 10/11/18 none lately simvastatin 40 mg Tablet 40 mg PO HS buspirone 15 mg Tablet 15 mg PO BID ascorbic acid (vitamin C) [Vitamin C] 1,000 mg tablet 0.5 g PO DAILY Discharge Instructions Instructions: Osteoarthritis Additional Instructions: X-ray shows some degenerative changes noted on the images. No dislocation or acute fractures or broken bones. Cardiac workup is largely unremarkable. Please take the oxycodone only as needed for moderate to severe pain. You may also try [id number] diclofenac or Voltaren topical which is a anti- inflammatory. Please take Tylenol or Ibuprofen with food every 4-6 hours as needed for pain and swelling. Apply ice up to 3 times daily as needed, wear the sling as needed for comfort. Follow-up with orthopedics if no improvement or any worsening. A physical therapy referral was placed for you as well. Please return to the ER for any chest pain shortness of breath dizziness worsening numbness tingling or any concerns. Stand Alone Forms: Physical Therapy Referral Referrals: Kyree Anderson PA [PHYSICIANS COMMUNICATIONS OPERATOR] - Return if symptoms worsen Tracie Murray [Primary Care Provider] - 1 week HPI General Mode of arrival: ambulatory . Date/Time Provider Initiated Documentation: 06/08/24 12:19 . Limitations to Documentation: no limitations . Information obtained by: patient, RN notes reviewed and old records reviewed . HPI Narrative: 68-year-old female presents to the ER with acute sudden onset of right shoulder pain which began approximately 2 hours prior to arrival. She reports denies any known injury however she was carrying a light box earlier. She reports 10 out of 10 pain which is somewhat subsided since arrival to the department. She did put some Arnica topically onto her shoulder which did little to relieve the symptoms. She also took some ibuprofen prior to arrival. She is somewhat h ypertensive upon arrival. Does have a history of CAD, hypertension and high cholesterol. She also reports 2 weeks of increasing exertional shortness of breath and intermittent lower extremity swelling. Denies any fever cough chest pain or any other associated symptoms. Related Data Home Medications ?Medication ?Instructions ?Recorded ?Confirmed cholecalciferol (vit D3)(bulk) 1 100 gm miscellaneous DAILY 02/23/16 06/08/24 million unit/gram liquid docusate sodium 100 mg capsule 100 mg PO BID 11/24/16 06/08/24 (Colace) buspirone 15 mg tablet 15 mg PO BID 10/15/18 06/08/24 simvastatin 40 mg tablet 40 mg PO HS 10/15/18 06/08/24 Saccharomyces boulardii 250 mg 250 mg PO BID 07/02/19 06/08/24 capsule (Daily Probiotic (S. boulardii)) acyclovir 400 mg tablet 400 mg PO DAILY 04/06/22 06/08/24 cyanocobalamin (vitamin B-12) 1,000 mcg PO DAILY 11/24/22 06/08/24 1,000 mcg tablet ascorbic acid (vitamin C) 1,000 mg 0.5 g PO DAILY 02/04/23 06/08/24 tablet (Vitamin C) omeprazole 40 mg capsule,delayed 20 mg PO DAILY 06/28/23 06/08/24 release mirtazapine 7.5 mg tablet 7.5 mg PO DAILY 09/22/23 06/08/24 oxycodone 5 mg capsule 5 mg PO Q8H PRN pain #7 caps 06/08/24 Previous Rx's ?Medication ?Instructions ?Recorded oxycodone 5 mg capsule 5 mg PO Q8H PRN pain #7 caps 06/08/24 Allergies Allergy/AdvReac Type Severity Reaction Status Date / Time clonazepam AdvReac Intermediate Nausea Verified 05/17/24 11:03 sertraline (From Zoloft) AdvReac Intermediate shakes Verified 05/17/24 11:03 trazodone AdvReac Unknown Other (See Verified 05/17/24 11:03 Comment) General ANNE MARIE: 4 Review of Systems All systems reviewed & are unremarkable except as noted in HPI and below Cardiovascular Cardiovascular: Reports dyspnea on exertion Respiratory Respiratory: Reports dyspnea on exertion Musculoskeletal Musculoskeletal: Reports as per HPI and Reports arthralgias Exam Narrative Exam Narrative: Constitutional: Alert and oriented x3. Appears stated age. Normal body habitus. Head: Normocephalic, no trauma. Eyes: Pupils PERRL, Red reflex noted, EOM's intact. Eyelids symmetrical without lesions, discharge, or swelling. ENT: Bilateral TM's WNL, External ear normal to inspection, no mastoid TTP, swelling, or erythema, Nasal turbinates WNL, no nasal discharge. Normal dentition, Posterior pharynx WNL, no exudate. Chest: RRR, Normal S1, S2, distal pulses intact. Resp: Lungs clear to auscultation bilaterally, no wheezes, rales, or rhonchi. Abdomen: Soft, non-distended, Normoactive bowel sounds all 4 quads. Musculoskeletal: Normal gait, Moves all 4 extremities without difficulty. Skin: No suspicious rashes or lesions. Capillary refill less than 2 sec. Neurologic: Cranial nerves II-XII intact. Alert and oriented x 3. Motor: No deficits noted. Sensory: Intact bilaterally all 4 extremities. Hematologic/Lymphatic: No ecchymosis, no lymphadenopathy. Medical Decision Making 68-year-old female presents to the ER with acute sudden onset of right shoulder pain which began approximately 2 hours prior to arrival. She reports denies any known injury however she was carrying a light box earlier. She reports 10 out of 10 pain which is somewhat subsided since arrival to the department. She did put some Arnica topically onto her shoulder which did little to relieve the symptoms. She also took some ibuprofen prior to arrival. She is somewhat hypertensive upon arrival. Does have a history of CAD, hypertension and high cholesterol. She also reports 2 weeks of increasing exertional shortness of breath and intermittent lower extremity swelling. Denies any fever cough chest pain or any other associated symptoms. EKG done by triage nurse, old EKG available for review. Please see official report. Workup ordered including CBC CMP troponin chest x-ray and x-ray of shoulder D- dimer and proBNP. Differential diagnosis includes amounted to CAD, musculoskeletal strain, tendinitis or other. There is a component of some nervelike pain she reports that radiates down into her right forearm however with the sudden onset and subsiding pain, severity of her complaint along with the 2 weeks of increasing shortness of breath we will do a cardiac workup. D-dimer was slightly elevated however no tachycardia no hemoptysis no recent long trips in car plane heart rate is 68 O2 sat 99% suspicion for PE very low. Patient reports that her shoulder pain has improved since being here. Patient given a sling instructed to follow-up with Ortho if needed, physical therapy referral given and prescription for oxycodone No. 7 tablets given. Patient only to take if moderate to severe pain. This text was generated using [employer] dictation system, please disregard any oddities of phrase or misspellings. Medical Records Medical records reviewed: Yes I reviewed the patient's medical records. Imaging Data Radiologic Study: Imaging: X-Ray Radiologist's impression: EXAM: XR SHOULDER RT COMPLETE 2+V CLINICAL HISTORY: Pain. TECHNIQUE: 2D digital imaging was performed. Five views. COMPARISON: CR RIGHT SHOULDER COMPLETE from 09/22/[address] CHEST HIGH RESOLUTION from 05/31/2023 FINDINGS: BONES: Old right 3rd rib fracture seen on prior CT stent. No acute fracture is present. No bony destructive lesion is seen. JOINTS: No dislocation present. Spurring at AC joint. Glenohumeral joint space is maintained. SOFT TISSUE: Normal. IMPRESSION: Old right 3rd rib fracture. Mild degenerative changes of the AC joint. Radiologic Study #2: Imaging: X-Ray Radiologist's impression: EXAM: XR SHOULDER RT COMPLETE 2+V CLINICAL HISTORY: Pain. TECHNIQUE: 2D digital imaging was performed. Five views. COMPARISON: CR RIGHT SHOULDER COMPLETE from 09/22/[address] CHEST HIGH RESOLUTION from 05/31/2023 FINDINGS: BONES: Old right 3rd rib fracture seen on prior CT stent. No acute fracture is present. No bony destructive lesion is seen. JOINTS: No dislocation present. Spurring at AC joint. Glenohumeral joint space is maintained. SOFT TISSUE: Normal. IMPRESSION: Old right 3rd rib fracture. Mild degenerative changes of the AC joint. Lab Data Lab results reviewed: Yes I reviewed the patient's lab results. Labs: Laboratory Tests Range/Units 06/08/24 06/08/24 06/08/24 12:54 13:56 15:42 WBC (4.4-10.8) 10^3/uL 8.87 RBC (3.93-5.22) 10^6/uL 4.41 Hgb (11.2-15.7) g/dL 13.3 Hct (36.0-46.0) % 39.1 MCV (80-95) fL 89 MCH (27.0-33.0) pg 30.2 MCHC (32.0-36.0) % 34.0 RDW (11.7-14.6) % 13.0 Plt Count (130-400) 10^3/uL 218 MPV (8.0-11.0) fL 9.7 Immature Gran % % 0.3 Neutrophils % % 55.0 Lymphocytes % % 32.0 Monocytes % % 10.3 Eosinophils % % 1.9 Basophils % % 0.5 Nucleated RBC % (0.0-0.3) % 0.0 Absolute Neutrophils (1.2-6.7) 10^3/uL 4.88 Absolute Lymphocytes (1.2-3.4) 10^3/uL 2.84 Absolute Monocytes (0.1-0.8) 10^3/uL 0.91 H Absolute Eosinophils (0.0-0.7) 10^3/uL 0.17 Absolute Basophils (0.0-0.2) 10^3/uL 0.04 D-Dimer (<500) ng/mlFEU 807 H Sodium (136-145) mmol/L 141 Potassium (3.5-5.1) mmol/L 3.9 Chloride (98-107) mmol/L 105 Carbon Dioxide (21.0-32.0) mmol/L 25.7 Anion Gap (3-11) mmol/L 10.3 BUN (7-18) mg/dL 19 H Creatinine (0.55-1.02) mg/dL 1.1 H Est GFR (CKD-EPI 2020) (mL/min/1.73m2) 54.73 Glucose (74-106) mg/dL 101 Calcium (8.5-10.1) mg/dL 9.1 Magnesium (1.8-2.4) mg/dL 1.8 Total Bilirubin (0.2-1.0) mg/dL 0.30 AST (15-37) U/L 19 ALT (14-59) U/L 26 Alkaline Phosphatase (46-116) U/L 142 H Troponin I (<or=51) ng/L 5 4 Cancelled NT-Pro-B Natriuret Pep (<300) pg/mL 46 Total Protein (6.4-8.2) g/dL 7.4 Albumin (3.4-5.0) g/dL 3.5 Quality:[facility] Health Related Social Needs: No Data to Display PFSH All Active Problems (Updated 06/08/24 @ 14:03 by Kiesha Agudelo NP) Degenerative joint disease of right shoulder (Acute) Mild cognitive impairment (Acute) Memory deficit (Acute) Dyspnea (Acute) Family history of ischemic heart disease (Acute) Hypercholesteremia (Acute) Decreased diffusion capacity of lung (Acute) Equinus contracture of ankle (Acute) Achilles tendinitis of both lower extremities (Acute) Endometrial stripe increased (Acute) GERD (gastroesophageal reflux disease) (Chronic) Anxiety disorder (Acute) Hiatal hernia (Acute 07/12/16) Chronic GERD (Acute 07/12/16) Medical History Dyspnea and respiratory abnormalities Knee pain, bilateral Chronic lower back pain Thoracic back pain Heel pain Pain in left shoulder Acute hip pain, bilateral Hemangioma Anxiety with depression Hx of pancreatitis Migraine Breast pain, right Snoring Fatigue Ascending aorta dilatation Chest pain Hemangioma of liver Plantar wart Allergies Tremor H/O acute pancreatitis Headache, unspecified Migraine headache with aura Hemorrhoids Cold sore Carpal tunnel syndrome Forgetfulness Pedal edema Breast pain Back pain Pain of left thumb SOB (shortness of breath) Hypomagnesemia DVT prophylaxis Discharge planning issues Intractable nausea and vomiting Hypertensive urgency Elevated troponin H. pylori infection Encounter for colorectal cancer screening Hiatal hernia (02/23/16) Skin tag (06/05/13) Globus sensation (07/12/16) Constipation Abdominal pain GERD (gastroesophageal reflux disease) Overweight Depression Cough Anxiety Chest heaviness Thoracic spine pain Arthralgia Insomnia Acute appendicitis with generalized peritonitis Surgical History H/O colonoscopy (06/23/18) dr owusu, no abnormalities, repeat 10 years EGD - IV Sedation (02/23/16) Dr Maryellen Swann, repeat 10 yrs Appendectomy (11/25/16) Family History Mother Stroke Father Heart disease Brother Stroke Sister , inoperable blood clot Stroke Brother Stroke Brother Cancer esophageal Sister Cancer Lung CA + smoker Sister Heart disease Sister Heart disease Brother Heart disease Carotid artery disease Other Esophageal cancer Social History Smoking/Tobacco Use Status: Never Smoking risk assessment performed?: Yes Alcohol Intake: never Drug use: Daily Details: Marijuana daily Household members: other Details: Number of Children: 3 current occupation: Retired. What is your relationship status?: Panel score (0-1 are the most socially isolated patients): 0 Do you feel safe at home: Yes Do you feel safe in your relationship?: Yes History History 3 Para 2 Hx # Term Pregnancies 3 Multiple births Hx # Pregnancies Ectopic pregnancies AB induced Hx Number of Living Children AB spontaneous
--- NOTE | 2024-06-08 12:22 | RT.EKG_ITS ---
APPROVED REPORT Exam: Resting ECG Reason for Exam: Anterior shoulder/ chest pain Patient Location: E HR:72 bpm ECG Measurements Heart Rate 72 AXIS OK 198 P 57 QRSd 90 QRS -26 QT 398 T 80 QTc 437 Conclusion Sinus rhythm...normal P axis, V-rate 60- 99 Probable left atrial enlargement...P >50mS, <-0.10mV V1 Probable left ventricular hypertrophy...multiple LVH criteria
--- NOTE | 2024-06-08 12:42 | DI.RAD_ITS ---
Exam(s) XR CHEST 2V PA LATERAL EXAM: XR CHEST 2V PA LATERAL CLINICAL HISTORY: Shortness of breath x 2 weeks TECHNIQUE: 2D digital imaging was performed. Two views. COMPARISON: CR,XR XR CHEST 2V PA LATERAL from 10/01/[address] CHEST HIGH RESOLUTION from 05/31/2023 CR XR SHOULDER RT COMPLETE 2+V from 06/08/2024 FINDINGS: HEART: Normal size. Aorta: Not dilated. PULMONARY VASCULATURE: Normal. MEDIASTINUM: Unremarkable. LUNGS: Clear. PLEURAL SPACE: No pleural effusion or pneumothorax. BONE:Unremarkable for age. SOFT TISSUES: Unremarkable. IMPRESSION: No acute abnormality. DATA REPOSITORY: RADIATION DOSE DELIVERED:
--- NOTE | 2024-06-08 12:42 | DI.RAD_ITS ---
Exam(s) XR SHOULDER RT COMPLETE 2+V EXAM: XR SHOULDER RT COMPLETE 2+V CLINICAL HISTORY: Pain. TECHNIQUE: 2D digital imaging was performed. Five views. COMPARISON: CR RIGHT SHOULDER COMPLETE from 09/22/[address] CHEST HIGH RESOLUTION from 05/31/2023 FINDINGS: BONES: Old right 3rd rib fracture seen on prior CT stent. No acute fracture is present. No bony dest ructive lesion is seen. JOINTS: No dislocation present. Spurring at AC joint. Glenohumeral joint space is maintained. SOFT TISSUE: Normal. IMPRESSION: Old right 3rd rib fracture. Mild degenerative changes of the AC joint. DATA REPOSITORY: RADIATION DOSE DELIVERED:
[2024-06-08 13:02] LABS: Abs Immature Grans 0.03 10^3/uL (0.0-0.06); Absolute Basophil Count 0.04 10^3/uL (0.0-0.2); Absolute Eosinophil Count 0.17 10^3/uL (0.0-0.7); Absolute Lymphocyte Count 2.84 10^3/uL (1.2-3.4); Absolute Monocyte Count 0.91 10^3/uL (0.1-0.8); Absolute Neutrophil Count 4.88 10^3/uL (1.2-6.7); Basophils % 0.5 %; Eosinophils % 1.9 %; HCT 39.1 % (36.0-46.0); HGB 13.3 g/dL (11.2-15.7); Immature Grans % 0.3 %; MCH 30.2 pg (27.0-33.0); MCV 89 fL (80-95); MPV 9.7 fL (8.0-11.0); Monocytes % 10.3 %; Platelet Count 218 10^3/uL (130-400); RBC 4.41 10^6/uL (3.93-5.22); RDW-SD 42.5 fL; WBC 8.87 10^3/uL (4.4-10.8)
[2024-06-08 13:23] LABS: ALT 26 U/L (14-59); AST 19 U/L (15-37); Albumin 3.5 g/dL (3.4-5.0); Alkaline Phosphatase 142 U/L (46-116); Anion Gap 10.3 mmol/L (3-11); BUN 19 mg/dL (7-18); CO2 25.7 mmol/L (21.0-32.0); CREATININE 1.1 mg/dL (0.55-1.02); Calcium 9.1 mg/dL (8.5-10.1); Chloride 105 mmol/L (98-107); Estimated GFR 54.73 (mL/min/1.73m2); Glucose 101 mg/dL (74-106); Magnesium 1.8 mg/dL (1.8-2.4); NT-proBNP 46 pg/mL (<300); Potassium 3.9 mmol/L (3.5-5.1); Sodium 141 mmol/L (136-145); Total Protein 7.4 g/dL (6.4-8.2); Troponin I 5 ng/L (<or=51)
[2024-06-08 13:41] LABS: D-Dimer 807 ng/mlFEU (<500)
[2024-06-08 13:57] VITALS: BP 136/64; PULSE 68
[2024-06-08 14:25] LABS: Troponin I 4 ng/L (<or=51)
== END 2024-06-08 14:23 | disposition home or self-care (01) ==
PROVIDERS: Emergency Provider Registered Nurse Emergency; PCP Nurse Practitioner Family
DX: M19.011 Primary osteoarthritis, right shoulder (principal); I25.10 Atherosclerotic heart disease of native coronary artery without angina pectoris; I10 Essential (primary) hypertension; R06.02 Shortness of breath; R60.0 Localized edema
CPT/HCPCS: 36415; 80053; 93005; 99285; 71046; 73030; 83735; 83880; 84484; 85025; 85379; 93010; 99284

== ENCOUNTER 2024-06-13 11:11 | Outpatient (CLI) | payer MEDICARE, SELFPAY ==
[2024-06-13 12:24] LABS: ALT 61 U/L (14-59); AST 56 U/L (15-37); Albumin 3.5 g/dL (3.4-5.0); Alkaline Phosphatase 138 U/L (46-116); Anion Gap 9.1 mmol/L (3-11); BUN 12 mg/dL (7-18); Bilirubin, Total 0.25 mg/dL (0.2-1.0); CO2 26.9 mmol/L (21.0-32.0); CREATININE 1.1 mg/dL (0.55-1.02); Calcium 9.4 mg/dL (8.5-10.1); Chloride 106 mmol/L (98-107); Estimated GFR 54.73 (mL/min/1.73m2); Glucose 120 mg/dL (74-106); Potassium 4.3 mmol/L (3.5-5.1); Sodium 142 mmol/L (136-145); Total Protein 7.5 g/dL (6.4-8.2); Vitamin D 25 Total 45.1 ng/mL (30-100)
[2024-06-13 12:29] LABS: GGT 23 U/L
[2024-06-13 18:47] LABS: Hepatitis A Antibody IgM Negative (Negative); Hepatitis B Core Antibody Negative (Negative); Hepatitis B surface Ag Negative (Negative); Hepatitis C Ab w Rflx HCV PCR Negative (Negative)
== END 2024-06-13 11:12 | disposition home or self-care (01) ==
LOC: LBO 11:11
PROVIDERS: PCP Nurse Practitioner Family; Visit Provider Nurse Practitioner Family
DX: R74.8 Abnormal levels of other serum enzymes (principal)
CPT/HCPCS: 36415; 80053; 82306; 86704; 86709; 86803; 87340; 82977

== ENCOUNTER 2024-06-18 01:27 | Outpatient (CLI) | payer MEDICARE, SELFPAY ==
--- NOTE | 2024-06-18 07:10 | DI.US_ITS ---
Exam(s) US ABDOMEN EXAM: US ABDOMEN CLINICAL HISTORY: ABNL LEVELS OF OTHER SERUM ENZYMES,ELEVATED ALK PHOS,R74.8 TECHNIQUE: Ultrasound abdomen performed using standard protocol. COMPARISON: US US ABDOMEN from 11/07/[address] ABDOMEN W from 12/21/[address] CHEST PE CTA from 10/05/2022 FINDINGS: ABDOMINAL AORTA AND IVC: Visualized portions normal caliber. PANCREAS: Normal where visualized. LIVER: Liver appears hyperechoic row tip of to the right kidney suggesting hepatic steatosis. The lovely maloney's known hemangioma in the dome of the liver was not of visualized on the current examination. Hepatopetal flow in the Portal Vein. No new hepatic masses are present. The liver measures 17.9cm lo ng. GALLBLADDER:No evidence of cholelithiasis. No evidence of wall thickening. No pericholecystic fluid i dentified. BILIARY SYSTEM: Common bile duct measures < 7 mm. No intrahepatic biliary ductal dilation. VERDUGO'S SIGN: Negative. KIDNEYS: Kidneys are symmetric in size. No evidence of renal calculi. No evidence of hydronephrosis. No renal mass or cyst identified. SPLEEN: Not enlarged. ASCITES: None seen. IMPRESSION: Mild hepatomegaly and hepatic steatosis. DATA REPOSITORY:
== END 2024-06-18 01:47 ==
LOC: DI 01:27
PROVIDERS: PCP Nurse Practitioner Family; Visit Provider Nurse Practitioner Family
DX: R74.8 Abnormal levels of other serum enzymes (principal); R16.0 Hepatomegaly, not elsewhere classified
CPT/HCPCS: 76700

== ENCOUNTER 2024-08-28 01:20 | Outpatient (CLI) | payer MEDICARE, SELFPAY ==
--- NOTE | 2024-08-28 12:55 | W.NUTRFU ---
Date of service: 08/28/24 Time of Service: 11:30 Nutrition Note NOTE: Anuradha arrived for referred nutrition visit with her other half, Efren. Anuradha brings with her concerns with steatosis, HLD,GERD. Tends to have 3 meals per day although breakfast might be earlier around 8am or as late as 10am or so, depending on their schedule. She does have some snacks during the day and will have ice cream most nights as an evening snack. She lately has tried gluten free diet but wondering if this is necessary. She also tries lately to avoid white foods like potatoes. Said she was told to use agave nectar as sweetener - I told her to avoid this product due to over 99% fructose in this. Suggested sucrose is fine but most important thing would be to avoid excessive added sugar all-together and make goal to stay less than 25grams per day for all added sugars - reviewed this. Encouraged her to prioritize above added sugar goal, but also stressed hitting 30g fiber or more, hitting a minimum of 80g protein per day and choosing choices low in saturated fat and highlighting use of plant protein sources, and if finding it difficult to meet goals, work in 1 scoop of whey protein powder. Reviewed 7% wt loss of ~15pounds will help with many of her concerns - GERD, Liver, cholesterol Gave some sample menus for low refined carb, low added sugar diet which meets her recommended protein intake and stresses fiber and plant protein. Also shared resources for mediterranean diet Also suggested she look into OTC milk thistle and let her provider know if taking for hepatocyte protection. Has my contact info to call with any need for follow up or have questions answered over the phone Time Spent in Nutritional Counseling and Treatment: 25 min
== END 2024-08-28 01:21 | disposition home or self-care (01) ==
LOC: DS 01:22
PROVIDERS: PCP Nurse Practitioner Family; Visit Provider Dietitian, Registered
DX: K76.0 Fatty (change of) liver, not elsewhere classified (principal); K21.9 Gastro-esophageal reflux disease without esophagitis
CPT/HCPCS: 00123; 97802

== ENCOUNTER 2024-09-05 02:39 | Outpatient (CLI) | payer MEDICARE, SELFPAY ==
--- NOTE | 2024-09-05 08:30 | DI.US_ITS ---
APPROVED REPORT EXAM: Comprehensive 2D, Doppler, and color-flow Echocardiogram Patient Location: Out-Patient Customer Support Representative: Papito Dumont RDCS (AE) Indications: Aneurysm of ascending aorta Conclusion Normal left ventricular wall thickness and chamber size. Ejection fraction is 60 to 65%. Wall motio n is normal Normal right ventricular size and function Both atria are normal in size No structural or hemodynamically significant valvular disease Mildly dilated ascending aorta measuring 3.76 cm Wall motion Left Ventricle The left ventricle is normal size. The left ventricular systolic function is normal. The left ventric ular ejection fraction is within the normal range. There is normal left ventricular wall thickness. T here is normal LV segmental wall motion. There is no ventricular septal defect visualized. LVEF is 60 -65%. Right Ventricle The right ventricle is normal size. The right ventricular systolic function is normal. Atria The left atrium size is normal. Right atrium is mildly dilated. The interatrial septum is intact with no evidence for an atrial septal defect. Aortic Valve The aortic valve is normal in structure. Aortic valve is trileaflet. There is no aortic valvular sten osis. No aortic regurgitation is present. Mitral Valve The mitral valve is normal in structure. No evidence of mitral valve stenosis. Trace to mild mitral r egurgitation. Tricuspid Valve The tricuspid valve is normal in structure. There is no tricuspid valve stenosis. Trace tricuspid reg urgitation. Unable to assess PA pressure. Pulmonic Valve The pulmonary valve is normal in structure. There is no pulmonic valvular stenosis. There is no pulmo sharlene valvular regurgitation. Great Vessels The aortic root is borderline normal in size. The ascending aorta is mildly dilated. IVC is normal in size and collapses >50% with inspiration. Pericardium There is no pericardial effusion. 2D Dimensions IVSD d PLAX 0.54 cm F: 0.6-1.0 Ao Root d 3.35 cm F: 2.7 - 3.3 LVPW d PLAX 0.54 cm F: 0.6 - 1.0 Ao Asc Diam d 3.76 cm F: 2.3 - 3.1 LVID d PLAX 4.95 cm F: 3.8 - 5.2 LVDs 3.20 cm F: 2.2 - 3.5 LV EF Teichholz 64.5 % FS 35.33 % LV EDV (Teich) 115.7 mL LV ESV (Teich) 41.1 mL Stroke Vol Index (Teich) 37.32 Auto EF LV EDV A4C 85.0 mL LV EDV A2C 65.7 mL LV EDV BP 75.4 mL LV ESV A4C 30.5 mL LV ESV A2C 24.9 mL LV ESV BP 27.6 mL LVEF(%) A4C 64.1 % LVEF(%) A2C 62.1 % LVEF(%) BP 63.4 % LV SV A4C 54.5 ml LV SV A2C 40.8 ml LV SV BP 47.8 ml LV CO A4C 3.7 L/min LV CO A2C 2.4 L/min LV CO BP 3.1 L/min HR A4C 68.84 BPM HR A2C 58.16 BPM LV EDV Index (BP) LA Volume LA Length A4C 3.8 cm LA Length A2C LA Area A4C s 9.81 cm2 LA Area A2C s LA Vol A4C A-L 21.20 mL LA Vol A2C A-L LA Vol Biplane A-L LA Vol A4C MOD 20.3 mL LA Vol A2C MOD LA Vol BP MOD RA Volume RA Area A4C 12.2 cm2 RA ESV A4C (A-L) 33.2mL RA Vol/BSA A4C A-L RA Length A4C 3.8 cm RA ESV A4C (MOD) 31.1mL LV Diastology MV E Vmax 0.54 (0.4-1.3 m/s) MV A Vmax 0.70 (0.4-1.3 m/s) E/A Ratio 0.8 Aortic Valve AoV Vmax 0.94 m/s LVOT Vmax 0.97 m/s AoV Peak Grad 3.5 mmHg LVOT Peak Grad 3.7 mmHg AoV Area (Vmax) 3.13 cm2 LVOT VTI 0.223 m AoV VTI 0.236 m LVOT Mean Grad 2.1 mmHg AoV Mean Tahir. 0.71 m/s LVOT SV 67.72 mL AoV Mean Grad 2.2 mmHg LVOT Diam s 1.95 cm AoV Area (VTI) 2.87 cm2 AV Regurg Peak Gr. 3.51 mmHg Velocity Ratio 1.03 Mitral Valve MV DT 279 (160-240 msec) Pulmonary Valve PV Vmax 1.00 (0.5-1.5 m/s) RVOT Vmax 0.70 m/s PV Peak Grad 4.0 mmHg RVOT Peak Gr. 2.0 mmHg PV Mean Tahir 0.66 m/s RVOT VTI 0.146 m PV Mean Grad 2.0 mmHg RVOT Mean Gr. 0.9 mmHg
== END 2024-09-05 02:59 ==
PROVIDERS: PCP Nurse Practitioner Family; Visit Provider Internal Medicine Cardiovascular Disease
DX: I71.21 Aneurysm of the ascending aorta, without rupture (principal)
CPT/HCPCS: 93306

== ENCOUNTER 2024-11-29 21:41 | Outpatient (REF) | payer MEDICARE, SELFPAY ==
[2024-11-29 23:24] LABS: Bacteria Rare HPF (Negative); C & S Indicated? C&S Done As Ordered; Casts Negative LPF (Negative); Crystals Negative HPF (Negative); Epithelial Cells Rare HPF (Negative); Mucus Negative (Negative); RBC Negative HPF (0-2); WBC 0-2 HPF (0-5)
== END 2024-11-29 21:42 | disposition home or self-care (01) ==
LOC: LBN 21:41
PROVIDERS: PCP Nurse Practitioner Family; Visit Provider Physician Assistant Medical
DX: R10.2 Pelvic and perineal pain (principal)
CPT/HCPCS: 81015; 87086; 87480; 87510; 87660

== ENCOUNTER 2024-12-11 01:22 | Outpatient (CLI) | payer MEDICARE, SELFPAY ==
--- NOTE | 2024-12-11 08:58 | DI.RAD_ITS ---
Exam(s) XR FOOT RT COMPLETE XR HEEL RT OS CALCIS EXAM: XR FOOT RT COMPLETE and XR heel RT os calcis CLINICAL HISTORY: Right foot pain,m79.671. TECHNIQUE: 2D digital imaging was performed of the right os calcis a.m. foot. Five images were obta ined. AP, oblique and lateral views were obtained. COMPARISON: CR XR FOOT RT COMPLETE from 12/11/2019 FINDINGS: BONES: No acute fracture is present. No bony destructive lesion is seen. There is a small plantar jordon caneal spur. Dystrophic calcification is again seen in the Achilles tendon. JOINTS: No dislocation present. Mild degenerative changes are seen in the foot. There is a small spu r at the dorsal aspect of the 1st metatarsal. Degenerative changes are seen at the talonavicular violet nt. SOFT TISSUE: Normal. IMPRESSION: 1. Mild degenerative changes seen in the foot. 2. Extensive calcification is again seen in the Achilles tendon. DATA REPOSITORY: RADIATION DOSE DELIVERED:
== END 2024-12-11 01:42 ==
LOC: DI 01:23
PROVIDERS: PCP Nurse Practitioner Family; Visit Provider Podiatrist
DX: M19.071 Primary osteoarthritis, right ankle and foot (principal); M79.671 Pain in right foot; M24.571 Contracture, right ankle; M76.61 Achilles tendinitis, right leg; M76.62 Achilles tendinitis, left leg
CPT/HCPCS: 99214; 73630; 73650

== ENCOUNTER 2024-12-26 07:47 | Outpatient (CLI) | payer MEDICARE, SELFPAY ==
[2024-12-26 08:26] LABS: Abs Immature Grans 0.01 10^3/uL (0.0-0.06); Absolute Basophil Count 0.04 10^3/uL (0.0-0.2); Absolute Eosinophil Count 0.18 10^3/uL (0.0-0.7); Absolute Lymphocyte Count 3.08 10^3/uL (1.2-3.4); Absolute Monocyte Count 0.74 10^3/uL (0.1-0.8); Absolute Neutrophil Count 4.28 10^3/uL (1.2-6.7); Basophils % 0.5 %; Eosinophils % 2.2 %; HCT 41.3 % (36.0-46.0); HGB 14.1 g/dL (11.2-15.7); Immature Grans % 0.1 %; MCH 29.9 pg (27.0-33.0); MCHC 34.1 % (32.0-36.0); MCV 88 fL (80-95); MPV 10.1 fL (8.0-11.0); Monocytes % 8.9 %; Neutrophils % 51.3 %; Platelet Count 235 10^3/uL (130-400); RBC 4.72 10^6/uL (3.93-5.22); RDW 13.3 % (11.7-14.6); RDW-SD 42.5 fL; WBC 8.33 10^3/uL (4.4-10.8)
[2024-12-26 11:01] LABS: ALT 23 U/L (14-59); Albumin 3.8 g/dL (3.4-5.0); Alkaline Phosphatase 130 U/L (46-116); Anion Gap 8.8 mmol/L (3-11); BUN 15 mg/dL (7-18); Bilirubin, Total 0.4 mg/dL (0.2-1.0); CO2 27.2 mmol/L (21.0-32.0); CREATININE 1.1 mg/dL (0.55-1.02); Calcium 9.4 mg/dL (8.5-10.1); Calculated LDL 112 mg/dL (<100); Chloride 105 mmol/L (98-107); Cholesterol 205 mg/dL (<200); Estimated GFR 54.39 (mL/min/1.73m2); Glucose 106 mg/dL (74-106); HDL Cholesterol 48 mg/dL (>or=50); Magnesium 1.9 mg/dL (1.8-2.4); Potassium 4.2 mmol/L (3.5-5.1); Sodium 141 mmol/L (136-145); Total Protein 7.9 g/dL (6.4-8.2); Triglyceride 227 mg/dL (<150); Vitamin B12 1657 pg/mL (193-986)
[2024-12-26 11:14] LABS: AST 21 U/L (15-37)
== END 2024-12-26 07:48 | disposition home or self-care (01) ==
LOC: LBO 07:48
PROVIDERS: PCP Nurse Practitioner Family; Visit Provider Nurse Practitioner Family
DX: E78.00 Pure hypercholesterolemia, unspecified (principal); K76.0 Fatty (change of) liver, not elsewhere classified; K21.9 Gastro-esophageal reflux disease without esophagitis; E83.42 Hypomagnesemia
CPT/HCPCS: 36415; 80053; 80061; 82607; 83735; 85025

== ENCOUNTER → 2025-05-30 02:06 | Outpatient (CLI) | payer MEDICARE, SELFPAY ==
--- NOTE | 2025-05-30 | DI.MAMMO_ITS ---
Exam(s) MAMMO SCREENING EXAM: MAMMO SCREENING CLINICAL HISTORY: SCREENING, Z12.31 TECHNIQUE: Bilateral full field digital CC and MLO mammographic images were obtained with 3D tomosynthesis and utilizing computer aided detection (CAD). COMPARISON: Comparison is made with prior examinations. FINDINGS: Masses/Architectural Distortion: No suspicious masses or areas of architectural distortion are present. Microcalcifications: No suspicious pleomorphic-type are seen. Skin Thickening/Nipple Retraction: None. IMPRESSION: 1. No significant interval change with no specific features of malignancy noted. 2. Unless there is more urgent need, screening mammography is recommended, as per [employer] guidelines. BI-RADS Category 1 - Negative Breast Density - Category B - There are scattered areas of fibroglandular density. Breast density Category C or D implies that the patient has dense breast tissue. Dense breast tissue can make it harder to find cancer on a mammogram. Dense breast tissue is also associated with an increased risk of breast cancer. This information about the result of the mammogram report was provided to the patient to raise their awareness. Use this report when you speak with the patient about their risks for breast cancer, which includes their family history. At that time, you may recommend additional screening tests (Ultrasound or MRI) as these tests may add significant information. A negative radiographic report should not delay biopsy if a dominant or clinically suspicious mass is present. Up to ten percent of cancers are not identified on mammography. A negative report may reinforce clinical impression. Adenosis and dense breasts may obscure an underlying neoplasm. False positive reports average 6 to 10%. Patient will receive a letter notifying them of these results.
--- NOTE | 2025-05-30 | DI.DEXA_ITS ---
Exam(s) XR DEXA BONE DENSITY W/WO MARELY EXAM: XR DEXA BONE DENSITY W/WO MARELY CLINICAL HISTORY: ASYMPTOMATIC MENOPAUSAL STATE,Z78.0 TECHNIQUE: COMPARISON: DX DEXA BONE DENSITY WITH MARELY from 03/02/2016 FINDINGS: Lateral Spine Image: Unremarkable. No compression deformities identified. Left hip: Total T-Score: -0.8. This is essentially unchanged compared to -0.9 on the prior examination. Total Z-Score: 0.7 T- and Z-scores: Within normal limits. Lumbar Spine: Total T-Score: -0.3. This compares to -0.5 on the prior examination. Total Z-Score: 1.8 T- and Z-scores: Within normal limits. IMPRESSION: No evidence of osteoporosis.
--- NOTE | 2025-05-30 08:00 | DI.US_ITS ---
Exam(s) US ABDOMEN LIMITED EXAM: US ABDOMEN LIMITED CLINICAL HISTORY: STEATOTIC LIVER DISEASE,FATTY LIVER,K76.0 TECHNIQUE: Ultrasound abdomen performed using standard protocol. COMPARISON: US US ABDOMEN from 11/07/2018 US US ABD PELV TRANSVAG NON-OB from 06/11/2019 US US ABDOMEN from 06/18/2024 FINDINGS: PANCREAS: Normal where visualized. LIVER: There is increased echogenicity of the liver consistent with fatty infiltration. Hepatopetal flow in the Portal Vein. The liver measures in 17.4 cm length. No evidence of a hepatic mass. GALLBLADDER: No evidence of cholelithiasis. No evidence of wall thickening. No pericholecystic fluid identified. BILIARY SYSTEM: Common bile duct measures < 7 mm. No intrahepatic biliary ductal dilation. VERDUGO'S SIGN: Negative. RIGHT KIDNEY: Kidney is normal in size. No evidence of renal calculi. No evidence of hydronephrosis. No renal mass or cyst identified. ASCITES: None seen. IMPRESSION: Hepatic steatosis. DATA REPOSITORY:
== END ==
LOC: DI 02:06
PROVIDERS: PCP Nurse Practitioner Family; Visit Provider Nurse Practitioner Family
DX: Z78.0 Asymptomatic menopausal state (principal); Z12.31 Encounter for screening mammogram for malignant neoplasm of breast
CPT/HCPCS: 77063; 77067; 77080; 76705